=== PATIENT | female | born 1960 | race Caucasian/White ===

== ENCOUNTER 2016-09-19 21:49 | Inpatient (IN) | payer MEDICAID ==
[~2016-09-19] VITALS: Ht 157.5 cm; Wt 130.6 kg
[~2016-09-19 21:49] MED LIST: BENA5TAB2 PO; D-ME473S2 PO; ESCI10TA PO; FERR-55 PO; METO-429 PO; TOLT2CAP6 PO; ULT50 PO; [UNRECOGNIZED DRUG - CODE] OP
[2016-09-19 21:53] VITALS: Ht 157.5 cm; Wt 130.6 kg
[2016-09-19] MEDS ORDERED: morphine 4 MG/ML VIAL IV STA (21:57)
[2016-09-19] MEDS ORDERED: ONDANSETRON 4 MG INJ IV STA (21:57)
[2016-09-19] MEDS ORDERED: SOD CHLORIDE 0.9% 1,000 ML IV STA (21:57)
[2016-09-19] MEDS ORDERED: LACT1CAP33 PO (22:18)
[2016-09-19] MEDS ORDERED: ALBU2.5V3 NEB (22:18)
[2016-09-19] MEDS ORDERED: MINE3.5O31 BOTH EYES (22:19)
[2016-09-19] MEDS ORDERED: BENA10TA48 PO (22:20)
[2016-09-19] MEDS ORDERED: BEN25 PO (22:20)
[2016-09-19] MEDS ORDERED: CHLO118L3 TOP (22:23)
[2016-09-19] MEDS ORDERED: CHLO473M7 MM (22:23)
[2016-09-19] MEDS ORDERED: APIX5TAB PO (22:24)
[2016-09-19] MEDS ORDERED: DULR PR (22:24)
[2016-09-19] MEDS ORDERED: ESOM40CA PO (22:25)
[2016-09-19] MEDS ORDERED: FLEETPED PR (22:26)
[2016-09-19] MEDS ORDERED: LANT3I SC (22:27)
[2016-09-19] MEDS ORDERED: IBUP200C PO (22:29)
[2016-09-19] MEDS ORDERED: FURO20TA3 PO (22:29)
[2016-09-19] MEDS ORDERED: MELA3TAB17 PO (22:30)
[2016-09-19] MEDS ORDERED: ESCI5TAB PO (22:30)
[2016-09-19] MEDS ORDERED: MAGN400O4 PO (22:31)
[2016-09-19] MEDS ORDERED: POLY17PO6 PO (22:32)
[2016-09-19] MEDS ORDERED: MULTI PO (22:33)
[2016-09-19] MEDS ORDERED: ONDA4TAB95 PO (22:34)
[2016-09-19] MEDS ORDERED: GABA100C14 PO (22:34)
[2016-09-19] MEDS ORDERED: OXYB5TAB7 PO (22:35)
[2016-09-19] MEDS ORDERED: TRAM-40 PO (22:36)
[2016-09-19 22:37] LABS: HEMATOCRIT 32.8 % (37.0-47.0); HEMOGLOBIN 10.8 g/dl (12.0-16.0); MEAN CORPUSCULAR HEMOGLOBIN 28.3 pg (29.0-33.0); MEAN CORPUSCULAR HGB CONC 32.9 g/dl (32.0-37.0); MEAN CORPUSCULAR VOLUME 86.1 fl (82.0-101.0); MEAN PLATELET VOLUME 8.6 fl (7.4-10.4); PLATELET COUNT 77 10^3/UL (140-440); RED BLOOD COUNT 3.81 10^6/ul (4.20-5.40); RED CELL DISTRIBUTION WIDTH 22.5 % (11.5-14.5)
[2016-09-19] MEDS ORDERED: CRAN3875 PO (22:37)
[2016-09-19] MEDS ORDERED: ZINC220T PO (22:37)
[2016-09-19] MEDS ORDERED: ASCO500C7 PO (22:37)
[2016-09-19 22:41] LABS: CONDITION 1; LH ANALYZER COMMENTS 1
[2016-09-19 22:45] LABS: ALBUMIN 2.6 g/dl (3.3-4.9)
[2016-09-19 22:46] LABS: POTASSIUM 4.3 mmol/L (3.5-5.1)
[2016-09-19 22:48] LABS: ALBUMIN/GLOBULIN RATIO 0.57; BILIRUBIN,INDIRECT 1.6 mg/dl (0-1.1); BILIRUBIN,TOTAL 2.6 mg/dl (0.2-1.3); CALCIUM 9.8 mg/dl (8.4-10.2); CREATININE 0.94 mg/dl (0.44-1.00); TOTAL PROTEIN 7.1 g/dl (6.1-8.1)
[2016-09-19] MEDS ORDERED: SOD CHLORIDE 0.9% 100 ML ONE (22:58)
[2016-09-19] MEDS ORDERED: IODIXANOL LOCM 100 ML BTL ONE (22:58)
[2016-09-19] MEDS ORDERED: DIPHENHYDRAMINE 50 MG CAP PO PRN (23:30)
[2016-09-19] MEDS ORDERED: HYDROmorphONE 1 MG/ML SYG IV PRN (23:30)
[2016-09-19] MEDS ORDERED: NACL 0.9% 3 ML SYG IV SCH (23:30)
[2016-09-19] MEDS ORDERED: ONDANSETRON 4 MG INJ IV PRN (23:30)
[2016-09-19] MEDS ORDERED: DIPHENHYDRAMINE 25 MG CAP PO PRN (23:30)
[2016-09-19 23:43] LABS: EOSINOPHILS # 0.2 10^3/ul (0.0-0.5); LYMPHOCYTES # 1.1 10^3/ul (0.8-2.9); MONOCYTE # 0.1 10^3/ul (0.3-0.9); NEUTROPHIL # 1.6 10^3/ul (1.6-7.5); PLATELET ESTIMATE PLT APPEAR DECREASED
[2016-09-19] MEDS ORDERED: GLUCAGON 1 MG INJ IM PRN (23:45)
[2016-09-19] MEDS ORDERED: GLUCOSE GEL 15 GRAM TUBE PO PRN ×2 (23:45)
[2016-09-19] MEDS ORDERED: GLUCOSE GEL 15 GRAM TUBE BUCCAL PRN (23:45)
[2016-09-19] MEDS ORDERED: DEXTROSE 50% 50 ML SYRINGE IV PRN ×2 (23:45)
--- NOTE | 2016-09-19 23:49 | RADRPT ---
PROCEDURE: CT Abdomen and pelvis with contrast. CLINICAL INDICATION: Abdominal pain. TECHNIQUE: CT scan of the abdomen and pelvis with contrast was performed on the [employer] s LightSpeed 64 slice VCT scanner. Contiguous axial images using 2.5 mm slice thickness were obtaine d from the lung bases to the ischial tuberosities after the administration of 100 cc Visipaque 320 i ntravenous contrast. Coronal and sagittal reformatted images were also obtained. Images were reviewe d on the PACS workstation. Exam CTD/vol = 23.75 mGy. Total exam DLP = 1370.49 mGy-cm. COMPARISON: 04/16/2014. FINDINGS: Evaluation of the lung bases demonstrates mild bibasilar atelectasis and small pleural effusions. T here are multiple pulmonary nodules bilaterally measuring up to 8 mm in size. Abdomen: The liver is normal in size with a nodular contour suggestive of cirrhosis. There is a po chloé defined heterogeneous area within the posterior segment of the right lobe of the liver measurin g approximately 6.5 x 8.9 cm. There is no dilatation of the biliary tree. The gallbladder is not dis tended. Multiple gallstones are identified. There is a recannulization of the umbilical vein and mu ltiple collateral vessels within the upper abdomen. The spleen is moderately enlarged. The pancreas and bilateral adrenal glands are within normal limits. Bilateral kidneys are normal in size with sy mmetric enhancement. There is scarring within the lower pole of the right kidney. There is no focal mass, hydronephrosis or hydroureter. There is no retroperitoneal adenopathy. The abdominal aorta is of normal caliber. An IVC filter is present. There is a moderate left abdominal ventral hernia containing fat. There is no bowel obstruction or f ree air. A normal appendix is identified. There is no diverticulosis or diverticulitis. There is mil d perihepatic free fluid. Pelvis: The bladder is unremarkable. The uterus and adnexa are within normal limits. There is no si gnificant pelvic adenopathy or free fluid. Evaluation of the osseous structures demonstrates no suspicious lytic or blastic lesion. IMPRESSION: Cirrhotic liver with poorly defined heterogeneous area within the right lobe suspicious for neoplast ic disease, new compared with 04/16/2014. Multiple collateral vessels and moderate splenomegaly compatible with portal venous hypertension. Multiple bony metastases. Mild bibasilar atelectasis and small pleural effusions. Cholelithiasis. IVC filter. Scarring within the lower pole of the right kidney. Moderate left abdominal ventral hernia containing fat. Mild perihepatic free fluid. .John Tse MD, MD Date Time Electronically viewed and signed by .John Tse MD, MD on 09/19/2016 23:49 .T/
--- NOTE | 2016-09-20 00:29 | ERA ---
ER Documentation Chief Complaint Date/Time DATE: 09/20/16 TIME: 00:27 Chief Complaint abd pain,BIB RA[facility],from [facility],denies [place],denies diarrhea/constipation HPI This is a 55-year-old female brought in by rescue 39 for abdominal pain from [facility]. Patient himself denies any complaints but is a poor historian. Dr. Hernandez, who is the patient's primary care physician, called in at and also let me know the patient has had poor oral intake over the past few days. ROS All systems reviewed and are negative except as per history of present illness. Medications Home Meds Reported Medications Zinc Sulfate* (Zinc Sulfate*) 220 Mg Tablet, 220 MG PO DAILY, TAB 09/19/16 Ascorbic Acid* (Vitamin C*) 500 Mg Capsule.sa, 500 MG PO DAILY, CAP 09/19/16 Cran/Vitc/Mannose/Inulin/Brom (Uti-Stat Liquid) 3,875 Mg/30 Ml Liquid, 3875 MG PO DAILY 09/19/16 Tramadol Hcl* (Ultram*) 50 Mg Tablet, 50 MG PO TID Y for PAIN, TAB 09/19/16 Oxybutynin Chloride* (Ditropan*) 5 Mg Tablet, 5 MG PO BID, TAB 09/19/16 Ondansetron Hcl* (Ondansetron Hcl*) 4 Mg Tablet, 4 MG PO Q6H Y for NAUSEA, TAB 09/19/16 Gabapentin* (Gabapentin*) 100 Mg Capsule, 100 MG PO DAILY, #30 CAP 09/19/16 Multivitamins* (Theragran*) 1 Tab Tab, 1 TAB PO DAILY, TAB 09/19/16 Polyethylene Glycol* (Miralax*) 17 Gm Powd.pack, 17 GM PO DAILY Y for PRN, #30 PACKET 09/19/16 Magnesium Hydroxide* (Milk Of Magnesia*) 400 Mg/5 Ml Oral.susp, 30 ML PO Q24H Y for PRN, ML 09/19/16 Melatonin (Melatonin) 3 Mg Tablet.sa, 3 MG PO HS, TAB.SA 09/19/16 Escitalopram Oxalate* (Lexapro*) 5 Mg Tablet, 5 MG PO DAILY, #30 TAB 09/19/16 Furosemide* (Furosemide*) 20 Mg Tablet, 20 MG PO DAILY, #60 TAB 09/19/16 Ibuprofen* (Ibuprofen*) 200 Mg Capsule, 400 MG PO Q6 Y for MILD, CAP FOR TRACH TUBE CHANGE 30 MIN PRIOR 09/19/16 Insulin Glargine* (Lantus*) 100 Unit/Ml Soln, 12 UNIT SC DAILY, #1 VIAL 09/19/16 Sod Phosphate/Sod Biphosphate* (Fleet* Enema Pediatric) 66.6 Ml Soln, 66.6 ML NC Q2DAYS Y for CONSTIPATION, ENEMA 09/19/16 Esomeprazole Mag Trihydrate (Nexium) 40 Mg Capsule.dr, 40 MG PO DAILY, #30 CAP 09/19/16 Apixaban* (Eliquis*) 5 Mg Tablet, 5 MG PO BID, TAB 09/19/16 Bisacodyl* (Bisacodyl*) 10 Mg Supp, 10 MG NC Q24H Y for PRN, SUPP 09/19/16 Chlorhexidine Gluconate (Paroex) 473 Ml Mouthwash, 473 ML MM Q12, BOTTLE 09/19/16 Benazepril Hcl* (Benazepril Hcl*) 10 Mg Tablet, 10 MG PO DAILY, #30 TAB 09/19/16 Diphenhydramine Hcl* (Benadryl*) 25 Mg Cap, 50 MG PO DAILY Y for ITCHING, CAP 09/19/16 Artificial Tears* (Akwa Oint*) 3.5 Gm Oint, 1 APPLIC BOTH EYES BID, #1 TUB 09/19/16 Albuterol Sulfate* (Albuterol Sulfate* Neb) 0.083%-3 Ml Neb, 2.5 MG NEB Q3H Y for WHEEZING AND SOB, #30 VIAL 09/19/16 Lactobacillus Acidophilus (Acidophilus Lactobacillus) 1 Each Capsule, 1 EACH PO BID, CAP 09/19/16 Discontinued Reported Medications Chlorhexidine Gluconate* (Chlorhexidine Gluconate*) 118 Ml Liquid, 118 ML TOP, ML 09/19/16 Dextromethorphan Hb-Promethazine Hcl* (Promethazine DM* Syrup) 473 Ml Syrup, 473 ML PO TID Y take 2 teaspoonfuls by mouth three times a day/prn 09/22/11 Tramadol HCl (Tramadol HCl) 50 Mg Tablet, 50 MG PO Q6 Y 09/22/11 Ferrous Sulfate* (Ferrous Sulfate*) 325 Mg Tablet, 325 MG PO TID 1/5/12 Benazepril Hcl* (Benazepril Hcl*) 5 Mg Tablet, 5 MG PO DAILY 09/22/11 Escitalopram Oxalate* (Lexapro*) 10 Mg Tablet, 10 MG PO DAILY 09/22/11 Metoprolol Tartrate (LOPRESSOR) 50 Mg Tab, 50 MG PO AM 09/22/11 Tolterodine Tartrate* (Detrol LA*) 2 Mg Cap.sr.24h, 2 MG PO BID 09/22/11 Phenylephrine Hcl (Phenylephrine Hcl) 15 Ml Drops, 15 ML OP Q4 Y 2 drops every 4hrs prn on trach site for stop bleeding 09/22/11 Allergies Allergies: Coded Allergies: Penicillins (Verified Allergy, Severe, 09/19/16) acetaminophen (Verified Allergy, Unknown, 09/19/16) PMhx/Soc History of Surgery: Yes (c/s gall bladder removal) Anesthesia Reaction: No Hx 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 Disorder: Yes (CVA) Hx Respiratory Disorders: Yes (on trach,acute resp failure) Hx Cardiac Disorders: Yes (heart failure) Hx Psychiatric Problems: Yes (depression) Hx Miscellaneous Medical Probl: Yes (HTN,IDDM,DYSPHAGIA) Hx Alcohol Use: No Hx Substance Use: No Hx Tobacco Use: No Smoking Status: Unknown if ever smoked Physical Exam Vitals Vital Signs Date Time Temp Pulse Resp B/P Pulse Ox O2 Delivery O2 Flow Rate FiO2 09/19/16 21:53 98.6 82 18 123/60 100 Physical Exam Const: [] Head: Atraumatic Eyes: Normal Conjunctiva ENT: Normal External Ears, Nose and Mouth. Neck: Full range of motion..~ No meningismus. Resp: Clear to auscultation bilaterally Cardio: Regular rate and rhythm, no murmurs Abd: Soft, non tender, non distended. Normal bowel sounds Skin: No petechiae or rashes Back: No midline or flank tenderness Ext: No cyanosis, or edema Neur: Awake and alert Psych: Normal Mood and Affect Result Diagram: 09/19/16221509/19/162215 Results 24 hrs Laboratory Tests Test 09/19/16 22:16 Alanine Aminotransferase (ALT/SGPT) 40IU/L Albumin 2.6g/dl Albumin/Globulin Ratio 0.57 Alkaline Phosphatase 178IU/L Anion Gap 15 Aspartate Amino Transf (AST/SGOT) 160IU/L Blood Morphology Comment Blood Urea Nitrogen 20mg/dl Calcium Level 9.8mg/dl Carbon Dioxide Level 25mmol/L Chloride Level 107mmol/L Creatinine 0.94mg/dl Direct Bilirubin 1.00mg/dl Eosinophils # 0.210^3/ul Eosinophils % 5.0% Globulin 4.50g/dl Glucose Level 110mg/dl Hematocrit 32.8% Hemoglobin 10.8g/dl Indirect Bilirubin 1.6mg/dl Lipase 141U/L Lymphocytes # 1.110^3/ul Lymphocytes % 38.0% Mean Corpuscular Hemoglobin 28.3pg Mean Corpuscular Hemoglobin Concent 32.9g/dl Mean Corpuscular Volume 86.1fl Mean Platelet Volume 8.6fl Monocytes # 0.110^3/ul Monocytes % 3.0% Neutrophils # 1.610^3/ul Neutrophils % 54.0% Platelet Count 7710^3/UL Platelet Estimate PLT APPEAR DECREASED Potassium Level 4.3mmol/L Red Blood Count 3.8110^6/ul Red Cell Distribution Width 22.5% Sodium Level 143mmol/L Total Bilirubin 2.6mg/dl Total Protein 7.1g/dl White Blood Count 3.010^3/ul Current Medications Medications (Trade) Dose Ordered Sig/Carolann Route PRN Reason Start Time Stop Time Status Last Admin Dose Admin Sodium Chloride (NS) 1,000 ml @ 1,000 mls/hr Q1H STAT IV 09/19/16 21:57 09/19/16 22:56 DC 09/19/16 21:57 Morphine Sulfate (morphine) 4 mg ONCE STAT IV 09/19/16 21:57 09/19/16 21:59 DC 09/19/16 23:41 Ondansetron HCl (Zofran Inj) 4 mg ONCE STAT IV 09/19/16 21:57 09/19/16 21:59 DC 09/19/16 23:41 IV Flush 10 ml 10 ml STK-MED ONCE .ROUTE 09/19/16 22:58 09/19/16 22:59 DC 09/19/16 23:24 Sodium Chloride (NS) 100 ml @ ud STK-MED ONCE .ROUTE 09/19/16 22:58 09/19/16 22:59 DC 09/19/16 23:25 Iodixanol (Visipaque Locm) 100 ml STK-MED ONCE .ROUTE 09/19/16 22:58 09/19/16 22:59 DC 09/19/16 23:25 Albuterol (Proventil 0.083% (Neb)) 2.5 mg Q3H RESP THERAPY PRN NEB WHEEZING AND SOB 09/19/16 23:30 Apixaban (Eliquis) 5 mg BID PO 09/20/16 09:00 Eye Lubricant (Akwa Oint) 1 applic BID BOTH EYES 09/20/16 09:00 Ascorbic Acid (Vitamin C) 500 mg DAILY PO 09/20/16 09:00 Benazepril HCl (Lotensin) 10 mg DAILY PO 09/20/16 09:00 Bisacodyl (Dulcolax Supp) 10 mg Q24H PRN NC PRN 09/19/16 23:30 Chlorhexidine Gluconate (Peridex) 15 ml Q12 MM 09/20/16 09:00 Diphenhydramine HCl (Benadryl) 50 mg DAILY PRN PO ITCHING 09/19/16 23:30 UNV Escitalopram Oxalate (Lexapro) 5 mg DAILY PO 09/20/16 09:00 Furosemide (Lasix) 20 mg DAILY@06 PO 09/20/16 06:00 Gabapentin (Neurontin) 100 mg DAILY PO 09/20/16 09:00 Magnesium Hydroxide (Milk Of Mag) 30 ml Q24H PRN PO PRN 09/19/16 23:30 Multivitamins Therapeutic (Theragran) 1 tab DAILY PO 09/20/16 09:00 Oxybutynin Chloride (Ditropan) 5 mg BID PO 09/20/16 09:00 Polyethylene Glycol (Miralax) 17 gm DAILY PRN PO PRN 09/19/16 23:30 Tramadol HCl (Ultram) 50 mg TID PRN PO PAIN 09/19/16 23:30 Zinc Sulfate (Zinc Sulfate) 220 mg DAILY PO 09/20/16 09:00 Diphenhydramine HCl 50 mg 50 mg DAILY PRN PO ITCHING 09/19/16 23:30 Dextrose/Sodium Chloride (D5-1/2ns) 1,000 ml @ 40 mls/hr Q24H IV 09/19/16 23:16 IV Flush (NS 3 ml) 3 ml PER PROTOCOL IV 09/19/16 23:30 Ondansetron HCl (Zofran Inj) 4 mg Q4H PRN IV NAUSEA AND/OR VOMITING 09/19/16 23:30 Hydromorphone HCl (Dilaudid) 0.5 mg Q4H PRN IV SEVERE PAIN LEVEL 7-10 09/19/16 23:30 Famotidine (Pepcid Iv) 20 mg Q12 IV 09/20/16 09:00 Insulin Aspart (Novolog Insulin Pen) NOVOLOG *MODERATE* ALGORITHM WITH MEALS BEDTIME SC 09/20/16 08:00 Miscellaneous Information (* Miscellaneous Pharmacy Order) HYPOGLYCEMIA PROTOCOL w... ONCE ONCE XX 09/19/16 23:30 09/19/16 23:34 DC Miscellaneous Information (* Miscellaneous Pharmacy Order) Discontinue Glyburide, Glipizide,... ONCE ONCE XX 09/19/16 23:30 09/19/16 23:35 DC Miscellaneous Information (* Miscellaneous Pharmacy Order) Discontinue all previ... ONCE ONCE XX 09/19/16 23:30 09/19/16 23:35 DC Diagnostic Test (Pha) (Accucheck) 1 ea 02 XX 09/20/16 02:00 Miscellaneous Information 1 ea NOTE XX 09/19/16 23:45 Glucose (Glutose) 15 gm Q15M PRN PO DECREASED GLUCOSE 09/19/16 23:45 Glucose (Glutose) 22.5 gm Q15M PRN PO DECREASED GLUCOSE 09/19/16 23:45 Dextrose (D50w Syringe) 25 ml Q15M PRN IV DECREASED GLUCOSE 09/19/16 23:45 Dextrose (D50w Syringe) 50 ml Q15M PRN IV DECREASED GLUCOSE 09/19/16 23:45 Glucagon (Glucagen) 1 mg Q15M PRN IM DECREASED GLUCOSE 09/19/16 23:45 Glucose (Glutose) 15 gm Q15M PRN BUCCAL DECREASED GLUCOSE 09/19/16 23:45 Procedures/MDM EKG: Rate/Rhythm: Normal Sinus Rhythm QRS, ST, T-waves: No changes consistent w/ acute ischemia Impression: No evidence of ischemia or arrhythmia Chest X-ray 1V Interpreted by me: Soft Tissue: No acute abnormalities Bones: No acute abnormalities Mediastinum/Cardiac Silhouette/Lungs: No acute abnormalities Medical decision making: Is a 55-year-old female comes in essentially for failure to thrive abdominal pain of uncertain nonspecific etiology. Patient will be admitted to Dr. Hernandez to medical surgical floor. Patient is stable but guarded at this time Departure Diagnosis: Primary Impression: Abdominal pain Qualified Code: R10.9 - Abdominal pain, unspecified location Condition: Serious MANISHA BAIRES Sep 20, 2016 00:28
[2016-09-20 00:31] VITALS: TEMP 98.6
[2016-09-20] MEDS: DEXTROSE 5%-0.45% NACL 1,000 ML IV SCH (01:15)
[2016-09-20] MEDS: ACCUCHECK AT 2AM (Patients on SS coverage) XX SCH (02:00)
[2016-09-20 06:04] LABS: HEMATOCRIT 30.8 % (37.0-47.0); HEMOGLOBIN 10.2 g/dl (12.0-16.0); MEAN CORPUSCULAR HGB CONC 33.1 g/dl (32.0-37.0); MEAN CORPUSCULAR VOLUME 87.5 fl (82.0-101.0); MEAN PLATELET VOLUME 8.9 fl (7.4-10.4); PLATELET COUNT 73 10^3/UL (140-440); RED BLOOD COUNT 3.52 10^6/ul (4.20-5.40); RED CELL DISTRIBUTION WIDTH 22.2 % (11.5-14.5); UNCORRECTED WBC 2.8 10^3/ul (4.8-10.8); WHITE BLOOD COUNT 2.8 10^3/ul (4.8-10.8)
[2016-09-20] MEDS: FUROSEMIDE 20 MG TAB PO SCH (06:10)
[2016-09-20 06:16] LABS: CONDITION 1; INR 2.58; LH ANALYZER COMMENTS 1; PT RATIO 2.2
[2016-09-20 06:49] LABS: ALBUMIN 2.3 g/dl (3.3-4.9)
[2016-09-20 06:50] LABS: POTASSIUM 4.4 mmol/L (3.5-5.1)
[2016-09-20 06:52] LABS: ALBUMIN/GLOBULIN RATIO 0.53; BILIRUBIN,DIRECT 0.8 mg/dl (0.00-0.20); BILIRUBIN,INDIRECT 1.5 mg/dl (0-1.1); BILIRUBIN,TOTAL 2.3 mg/dl (0.2-1.3); CREATININE 0.93 mg/dl (0.44-1.00); TOTAL PROTEIN 6.6 g/dl (6.1-8.1)
[2016-09-20 06:53] LABS: CALCIUM 9.5 mg/dl (8.4-10.2)
[2016-09-20 09:14] LABS: EOSINOPHILS # 0.2 10^3/ul (0.0-0.5); LYMPHOCYTES # 0.6 10^3/ul (0.8-2.9); MONOCYTE # 0.3 10^3/ul (0.3-0.9); NEUTROPHIL # 1.7 10^3/ul (1.6-7.5)
[2016-09-20 09:15] LABS: ANISOCYTOSIS 2+; HYPOCHROMASIA 1+; PLATELET ESTIMATE PLT APPEAR DECREASED
[2016-09-20] MEDS: INSULIN ASPART [NOVOLOG] 3 ML PEN SC SCH ×4 (09:24→20:34)
[2016-09-20] MEDS: ZINC SULFATE 220 MG CAP PO SCH (09:31)
[2016-09-20] MEDS: GABAPENTIN 100 MG CAP PO SCH (09:31)
[2016-09-20] MEDS: CHLORHEXIDINE GLUCONATE 15 ML UD CUP MM SCH ×2 (09:31→20:33)
[2016-09-20] MEDS: ESCITALOPRAM 10 MG TAB PO SCH (09:31)
[2016-09-20] MEDS: ASCORBIC ACID 500 MG TAB PO SCH (09:31)
[2016-09-20] MEDS: APIXABAN 5 MG TABLET PO SCH ×2 (09:32→20:38)
[2016-09-20] MEDS: MULTIVITAMINS THERAPEUTIC TAB PO SCH (09:32)
[2016-09-20] MEDS: FAMOTIDINE 20 MG INJ IV SCH ×2 (09:32→20:33)
[2016-09-20] MEDS: BENAZEPRIL 10 MG TAB PO SCH (09:32)
[2016-09-20] MEDS: OXYBUTYNIN 5 MG TAB PO SCH ×2 (12:17→20:34)
[2016-09-20] MEDS: OCULAR LUBRICANT 3.5 GM OPH OINT BOTH EYES SCH ×2 (12:17→20:33)
--- NOTE | 2016-09-20 15:59 | QN ---
Documentation Comment [id number] ANGELICA ALTAMIRANO MD Sep 20, 2016 15:59
--- NOTE | 2016-09-20 16:53 | HP ---
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 The patient is noted to have WBC 3, hematocrit 32.8, platelet count of 77. Sodium 142, potassium 4.4. The patient has abnormal LFT, alkaline phosphatase of 155. CT scan of the abdomen and pelvis done shows cirrhotic liver with poorly defined heterogeneous area within the right lobe, suspicious for disease, new, multiple collateral vessels and moderate splenomega ly. The patient has portal venous hypertension, multiple bony mets, mild bibasilar atelectasis and small pleural effusion, cholelithiasis, IVC filter, scarring within the lower pole of the right kidn ey, moderate left abdominal ventral hernia containing fat, mild perihepatic free fluid and patient i s being admitted for further management. PAST MEDICAL HISTORY: Positive for pancytopenia, COPD, respiratory failure, diabetes mellitus, dysp hagia, and depression. The patient has history of DVT, COPD, UTI, history of dyslipidemia, history of CKD. ALLERGIES: PENICILLIN. TYLENOL. SOCIAL HISTORY: Negative at this point. FAMILY HISTORY: At this point, negative. MEDICATION HISTORY: The patient is on: 1. Albuterol. 2. Apixaban. 3. Ascorbic acid. 4. Benazepril. 5. Bisacodyl. 6. Chlorhexidine. 7. Benadryl. 8. Lexapro. 9. Nexium 10. Lasix. 11. Gabapentin. 12. Ibuprofen. 13. Insulin. 14. Lactobacillus. 15. Magnesium oxide. 16. Melatonin. 17. Multiple vitamin. 18. Zofran. 19. Oxybutynin. 20. MiraLax. 21. Ultram. 22. Zinc sulfate. REVIEW OF SYSTEMS: HEENT: Unremarkable. RESPIRATORY: Chronic tracheostomy. No shortness of breath. CARDIOVASCULAR: No chest pain. ABDOMEN: No nausea, vomiting, abdominal pain. EXTREMITIES: Edema of lower extremity with pain. PHYSICAL EXAMINATION: GENERAL: Overweight, obese female, awake, alert. VITAL SIGNS: Shows blood pressure 132/55, pulse 76. HEAD: Atraumatic, normocephalic. Pupils equal, reactive to light. NECK: Supple. Tracheostomy in place. LUNGS: Clear. CARDIOVASCULAR: S1, S2 normal. ABDOMEN: Soft, obese, bowel sounds present, no palpable mass. EXTREMITIES: No cyanosis, clubbing. Edema positive. CENTRAL NERVOUS SYSTEM: The patient is awake, alert, no focal deficit. IMPRESSION: 1. The patient has abdominal pain. 2. Rule out malignancy. 3. Abnormal LFT. 4. Hypertension, diabetes mellitus, obesity, tracheostomy, COPD, DVT, history of inferior vena cava filter placement. PLAN: Obtain GI input and hematology consultation. Vascular surgery consultation as well as orders were d one. The patient is currently on 1. Apixaban. 2. Ascorbic acid. 3. Benazepril. 4. Chlorhexidine. 5. Celexa. 6. Gabapentin. 7. Multiple vitamin. 8. Zinc sulfate. 9. Insulin. 10. Lasix. 11. Tramadol. 12. Benadryl. 13. Zofran. Orders were done. Dictated By: ANGELICA TATE/LORI Conf#: [id number] DID#: [id number]
[2016-09-20 20:03] LABS: CARCINOEMBRYONIC ANTIGEN 4.5 ng/ml (0.0-5.0)
[2016-09-20 20:06] LABS: CANCER ANTIGEN 19-9 34.3 U/ml (0.0-37.0)
[2016-09-20 20:59] VITALS: BP 122/74; RESP 23
[2016-09-21] MEDS: DEXTROSE 5%-0.45% NACL 1,000 ML IV SCH (01:57)
[2016-09-21] MEDS: ACCUCHECK AT 2AM (Patients on SS coverage) XX SCH (01:59)
[2016-09-21] MEDS: FUROSEMIDE 20 MG TAB PO SCH (05:42)
[2016-09-21 05:43] VITALS: BP 117/55; PULSE 83
[2016-09-21 07:07] LABS: HEMATOCRIT 33.7 % (37.0-47.0); HEMOGLOBIN 10.9 g/dl (12.0-16.0); MEAN CORPUSCULAR HEMOGLOBIN 28.5 pg (29.0-33.0); MEAN CORPUSCULAR HGB CONC 32.2 g/dl (32.0-37.0); MEAN CORPUSCULAR VOLUME 88.6 fl (82.0-101.0); MEAN PLATELET VOLUME 9.3 fl (7.4-10.4); PLATELET COUNT 78 10^3/UL (140-440); RED BLOOD COUNT 3.81 10^6/ul (4.20-5.40); RED CELL DISTRIBUTION WIDTH 22.4 % (11.5-14.5); UNCORRECTED WBC 3.1 10^3/ul (4.8-10.8); WHITE BLOOD COUNT 3.1 10^3/ul (4.8-10.8)
[2016-09-21 07:17] LABS: CONDITION 1; LH ANALYZER COMMENTS 1
[2016-09-21 07:22] LABS: ALBUMIN 2.7 g/dl (3.3-4.9); POTASSIUM 4.5 mmol/L (3.5-5.1)
[2016-09-21 07:24] LABS: BILIRUBIN,DIRECT 0.8 mg/dl (0.00-0.20); BILIRUBIN,INDIRECT 1.6 mg/dl (0-1.1); BILIRUBIN,TOTAL 2.4 mg/dl (0.2-1.3); CREATININE 0.94 mg/dl (0.44-1.00)
[2016-09-21 07:25] LABS: ALBUMIN/GLOBULIN RATIO 0.58; TOTAL PROTEIN 7.3 g/dl (6.1-8.1)
[2016-09-21 07:26] LABS: CALCIUM 9.5 mg/dl (8.4-10.2)
[2016-09-21] MEDS: INSULIN ASPART [NOVOLOG] 3 ML PEN SC SCH ×4 (08:00→19:58)
[2016-09-21 08:09] VITALS: BP 127/60; RESP 22
[2016-09-21] MEDS ORDERED: INFLUENZA VIRUS VACCINE 0.5 ML (DISPENSING) IM* ONE (09:00)
[2016-09-21] MEDS: ESCITALOPRAM 10 MG TAB PO SCH (09:43)
[2016-09-21] MEDS: GABAPENTIN 100 MG CAP PO SCH (09:44)
[2016-09-21] MEDS: ZINC SULFATE 220 MG CAP PO SCH (09:44)
[2016-09-21] MEDS: MULTIVITAMINS THERAPEUTIC TAB PO SCH (09:44)
[2016-09-21] MEDS: OXYBUTYNIN 5 MG TAB PO SCH ×2 (09:44→19:58)
[2016-09-21] MEDS: ASCORBIC ACID 500 MG TAB PO SCH (09:44)
[2016-09-21] MEDS: FAMOTIDINE 20 MG INJ IV SCH (09:45)
[2016-09-21] MEDS: OCULAR LUBRICANT 3.5 GM OPH OINT BOTH EYES SCH ×2 (09:45→19:57)
[2016-09-21] MEDS: APIXABAN 5 MG TABLET PO SCH ×2 (09:45→19:58)
[2016-09-21] MEDS: BENAZEPRIL 10 MG TAB PO SCH (09:45)
[2016-09-21] MEDS: CHLORHEXIDINE GLUCONATE 15 ML UD CUP MM SCH ×2 (09:45→19:57)
[2016-09-21 10:49] LABS: ANISOCYTOSIS 1+; EOSINOPHILS # 0.1 10^3/ul (0.0-0.5); HYPOCHROMASIA 1+; LYMPHOCYTES # 0.7 10^3/ul (0.8-2.9); MONOCYTE # 0.2 10^3/ul (0.3-0.9)
[2016-09-21 10:50] LABS: PLATELET ESTIMATE PLT APPEAR DECREASED
[2016-09-21] MEDS: MUPIROCIN 2% 22 GM OINT TOP SCH ×2 (13:07→19:59)
--- NOTE | 2016-09-21 13:37 | CONS ---
Date/Time of Note Date/Time of Note DATE: 09/21/16 TIME: 13:27 Assessment/Plan Assessment/Plan Chief Complaint/Hosp Course 55 yo female with history or recurrent DVT who now presents with liver lesions and pancytopenia. Problems: Additional Assessment/Plan # Liver lesion -given cirrhosis we are concerned for HCC -follow AFP. if elevated will check triple phase CT -if low AFP will need to pursue liver biopsy #Pancytopenia -likely secondary to liver cirrhosis -will monitor counts #h/o multiple DVT s/p IVC filter -LE ultrasounds ordered. will follow up -Lovenox for dvt ppx ok # question on bone mets -spoke with Abner Boateng, radiologist who stated there were infact NO BONE METS on CT. this was a misread and will be addended on the scan Approximately 40 min were spent at patient's bedside and in coordination of her care Consultation Date/Type/Reason Admit Date/Time Sep 21, 2016 at 10:00 Date of Consultation: Sep 21, 2016 Type of Consultation: oncology/ hematology Reason for Consultation DVT/ metastatic cancer Referring Provider: ANGELICA ALTAMIRANO Hx of Present Illness 55-year-old female with multiple medical problems including COPD, chronic trach , history of multiple DVT's who was brought in by ambulance form skilled nursing for abdominal pain. Per patient's PMD pt has had poor oral intake for the past several days. CT of the abdomen and pelvis reveal a cirrhotic liver with a poorly defined heterogeneous area within the right lobe suspicious for neoplastic disease, new compared with 04/16/2014. The patient was also noted to be pancytopenic with a WBC 3, hematocrit 32.8, platelet count of 77. She was also noted to have an elevated CA 125. We have thus been consulted to rule out metastatic disease given the elevated tumor marker and indeterminate liver lesion. Constitutional: poor po Eyes: no complaints ENT: no complaints Respiratory: shortness of breath Cardiovascular: no complaints Gastrointestinal: no complaints Genitourinary: no complaints Musculoskeletal: bone/joint pain Skin: no complaints Neurologic: no complaints Past Medical History Positive for pancytopenia cirrhosis COPD, respiratory failure with trach diabetes mellitus dysphagia depression history of DVT COPD UTI history of dyslipidemia history of CKD. Family History Significant Family History: no pertinent family hx Social History Alcohol Use: none Smoking Status: Unknown if ever smoked Drug Use: none Exam/Review of Systems Vital Signs Vitals Vital Signs Date Time Temp Pulse Resp B/P Pulse Ox O2 Delivery O2 Flow Rate FiO2 09/21/16 09:00 6.0 09/21/16 08:09 98.2 84 22 127/60 94 09/21/16 05:14 Aerosol 28 T Tube Intake and Output 09/20/16 09/20/16 09/21/16 15:00 23:00 07:00 Intake Total 600 ml 720 ml Balance 600 ml 720 ml Exam Constitutional: alert, obese, oriented Eyes: nl conjunctiva Neck: other (with tracheostomy) Respiratory: clear to auscultation, normal air movement Cardiovascular: nl pulses, regular rate and rhythm Gastrointestinal: nl liver, spleen, non-tender, soft Musculoskeletal: nl extremities to inspection, nl gait and stance Extremities: normal pulses Results Result Diagram: 09/21/1651609/21/16516 Results 24 hrs Laboratory Tests Test 09/20/16 16:43 09/20/16 17:15 09/20/16 20:32 09/21/16 05:17 Bedside Glucose 110 133 CA 125 Antigen 166.0 H CA 19-9 Antigen 34.3 Carcinoembryonic Antigen 4.5 Prealbumin 5.4 L Alanine Aminotransferase (ALT/SGPT) 50 Albumin 2.7 L Albumin/Globulin Ratio 0.58 Alkaline Phosphatase 171 H Anion Gap 17 H Anisocytosis 1+ Aspartate Amino Transf (AST/SGOT) 152 H Band Neutrophils % 1.0 Blood Morphology Comment Blood Urea Nitrogen 19 Calcium Level 9.5 Carbon Dioxide Level 25 Chloride Level 107 Creatinine 0.94 Differential Comment MANUAL DIFF Direct Bilirubin 0.80 H Eosinophils # 0.1 Eosinophils % 4.0 Globulin 4.60 H Glucose Level 116 Hematocrit 33.7 L Hemoglobin 10.9 L Hypochromasia 1+ Indirect Bilirubin 1.6 H Lymphocytes # 0.7 L Lymphocytes % 22.0 Mean Corpuscular Hemoglobin 28.5 L Mean Corpuscular Hemoglobin Concent 32.2 Mean Corpuscular Volume 88.6 Mean Platelet Volume 9.3 Monocytes # 0.2 L Monocytes % 8.0 Neutrophils # 2.0 Neutrophils % 65.0 Platelet Count 78 L Platelet Estimate PLT APPEAR DECREASED Potassium Level 4.5 Red Blood Count 3.81 L Red Cell Distribution Width 22.4 H Sodium Level 144 Total Bilirubin 2.4 H Total Protein 7.3 White Blood Count 3.1 L Test 09/21/16 07:45 09/21/16 11:30 Bedside Glucose 129 120 Medications Medications Current Medications Apixaban (Eliquis) 5 mg BID PO Last administered on 09/21/16 09:45; Admin Dose 5 MG; Start 09/20/16 at 09:00 Eye Lubricant (Akwa Oint) 1 applic BID BOTH EYES Last administered on 09/21/16 09:45; Admin Dose 1 APPLIC; Start 09/20/16 at 09:00 Ascorbic Acid (Vitamin C) 500 mg DAILY PO Last administered on 09/21/16 09:44; Admin Dose 500 MG; Start 09/20/16 at 09:00 Benazepril HCl (Lotensin) 10 mg DAILY PO Last administered on 09/21/16 09:45; Admin Dose 10 MG; Start 09/20/16 at 09:00 Bisacodyl (Dulcolax Supp) 10 mg Q24H PRN IA PRN; Start 09/19/16 at 23:30 Chlorhexidine Gluconate (Peridex) 15 ml Q12 MM Last administered on 09/21/16 09 :45; Admin Dose 15 ML; Start 09/20/16 at 09:00 Escitalopram Oxalate (Lexapro) 5 mg DAILY PO Last administered on 09/21/16 09: 43; Admin Dose 5 MG; Start 09/20/16 at 09:00 Furosemide (Lasix) 20 mg DAILY@06 PO Last administered on 09/21/16 05:42; Admin Dose 20 MG; Start 09/20/16 at 06:00 Gabapentin (Neurontin) 100 mg DAILY PO Last administered on 09/21/16 09:44; Admin Dose 100 MG; Start 09/20/16 at 09:00 Magnesium Hydroxide (Milk Of Mag) 30 ml Q24H PRN PO PRN; Start 09/19/16 at 23:30 Multivitamins Therapeutic (Theragran) 1 tab DAILY PO Last administered on 09:44; Admin Dose 1 TAB; Start 09/20/16 at 09:00 Oxybutynin Chloride (Ditropan) 5 mg BID PO Last administered on 09/21/16 09:44 ; Admin Dose 5 MG; Start 09/20/16 at 09:00 Polyethylene Glycol (Miralax) 17 gm DAILY PRN PO PRN; Start 09/19/16 at 23:30 Tramadol HCl (Ultram) 50 mg TID PRN PO PAIN; Start 09/19/16 at 23:30 Zinc Sulfate (Zinc Sulfate) 220 mg DAILY PO Last administered on 09/21/16 09:44 ; Admin Dose 220 MG; Start 09/20/16 at 09:00 Diphenhydramine HCl 50 mg 50 mg DAILY PRN PO ITCHING; Start 09/19/16 at 23:30 Dextrose/Sodium Chloride (D5-1/2ns) 1,000 ml @ 40 mls/hr Q24H IV Last administered on 09/21/16 01:57; Admin Dose 40 MLS/HR; Start 09/19/16 at 23:16 Ondansetron HCl (Zofran Inj) 4 mg Q4H PRN IV NAUSEA AND/OR VOMITING Last administered on 09/20/16 06:20; Admin Dose 4 MG; Start 09/19/16 at 23:30 Hydromorphone HCl (Dilaudid) 0.5 mg Q4H PRN IV SEVERE PAIN LEVEL 7-10; Start at 23:30 Famotidine (Pepcid Iv) 20 mg Q12 IV Last administered on 09/21/16 09:45; Admin Dose 20 MG; Start 09/20/16 at 09:00 Diagnostic Test (Pha) (Accucheck) 1 ea 02 XX ; Start 09/20/16 at 02:00 Miscellaneous Information 1 ea NOTE XX ; Start 09/19/16 at 23:45 Glucose (Glutose) 15 gm Q15M PRN PO DECREASED GLUCOSE; Start 09/19/16 at 23:45 Glucose (Glutose) 22.5 gm Q15M PRN PO DECREASED GLUCOSE; Start 09/19/16 at 23:45 Dextrose (D50w Syringe) 25 ml Q15M PRN IV DECREASED GLUCOSE; Start 09/19/16 at 23:45 Dextrose (D50w Syringe) 50 ml Q15M PRN IV DECREASED GLUCOSE; Start 09/19/16 at 23:45 Glucagon (Glucagen) 1 mg Q15M PRN IM DECREASED GLUCOSE; Start 09/19/16 at 23:45 Glucose (Glutose) 15 gm Q15M PRN BUCCAL DECREASED GLUCOSE; Start 09/19/16 at 23: 45 Mupirocin (Bactroban) 1 applic BID TOP Last administered on 09/21/16t 13:07; Admin Dose 1 APPLIC; Start 09/21/16 at 12:00 ELTON LINCOLN M.D. Sep 21, 2016 13:37
--- NOTE | 2016-09-21 15:02 | RADRPT ---
PROCEDURE: Ultrasound of the bilateral lower extremity venous system. CLINICAL INDICATION: Bilateral leg pain and swelling, deep venous thrombosis, shortness of breath TECHNIQUE: Novoa scale with and without compression, color doppler, spectral doppler of the venous system of the bilateral lower extremities was performed. Venous augmentation maneuvers were utilized . COMPARISON: No prior studies are available for comparison. FINDINGS: RIGHT: Common femoral vein: Thrombus is present Superficial femoral vein: Thrombus is present within the proximal and midportion of the vessel. Popliteal vein: Patent. Calf veins: Patent. No soft tissue abnormalities are identified. LEFT: Common femoral vein: Patent. Superficial femoral vein: Patent. Popliteal vein: Patent. Calf veins: Patent. No soft tissue abnormalities are identified. IMPRESSION: Right lower extremity deep venous thrombosis. Results were discussed with Nurse Indica by telephone at 1455 hours on 09/21/[address] Héctor hendrickson RPTAT: AADD .Héctor Panchal MD, MD Date Time Electronically viewed and signed by .Héctor Panchal MD, on 09/21/2016 15:02 .B/
--- NOTE | 2016-09-21 18:31 | PN ---
Date/Time of Note Date/Time of Note DATE: 09/21/16 TIME: 18:30 Assessment/Plan VTE Prophylaxis VTE Prophylaxis Intervention: other Lines/Catheters IV [facility]ter Type (from [facility]): Peripheral IV Urinary Cath still in place: No Assessment/Plan Chief Complaint/Hosp Course IMPRESSION: 1. The patient has abdominal pain. 2. Rule out malignancy. 3. Abnormal LFT. 4. Hypertension, diabetes mellitus, obesity, tracheostomy, COPD, DVT, history of inferior vena cava filter placement. plan gi pending dr grimes called Problems: Subjective 24 Hr Interval Summary Respiratory: no complaints Gastrointestinal: no complaints Exam/Review of Systems Vital Signs Vitals Vital Signs Date Time Temp Pulse Resp B/P Pulse Ox O2 Delivery O2 Flow Rate FiO2 09/21/16 09:00 6.0 09/21/16 08:09 98.2 84 22 127/60 94 09/21/16 05:14 Aerosol 28 T Tube Intake and Output 09/20/16 09/20/16 09/21/16 15:00 23:00 07:00 Intake Total 600 ml 720 ml Balance 600 ml 720 ml Exam Respiratory: clear to auscultation Cardiovascular: regular rate and rhythm Gastrointestinal: soft Extremities: edema (++) Results Result Diagram: 09/21/1617 09/21/16 0517 Results 24 hrs Laboratory Tests Test 09/20/16 20:32 09/21/16 05:17 09/21/16 07:45 09/21/16 11:30 Bedside Glucose 133 129 120 Alanine Aminotransferase (ALT/SGPT) 50 Albumin 2.7 L Albumin/Globulin Ratio 0.58 Alkaline Phosphatase 171 H Anion Gap 17 H Anisocytosis 1+ Aspartate Amino Transf (AST/SGOT) 152 H Band Neutrophils % 1.0 Blood Morphology Comment Blood Urea Nitrogen 19 Calcium Level 9.5 Carbon Dioxide Level 25 Chloride Level 107 Creatinine 0.94 Differential Comment MANUAL DIFF Direct Bilirubin 0.80 H Eosinophils # 0.1 Eosinophils % 4.0 Globulin 4.60 H Glucose Level 116 Hematocrit 33.7 L Hemoglobin 10.9 L Hypochromasia 1+ Indirect Bilirubin 1.6 H Lymphocytes # 0.7 L Lymphocytes % 22.0 Mean Corpuscular Hemoglobin 28.5 L Mean Corpuscular Hemoglobin Concent 32.2 Mean Corpuscular Volume 88.6 Mean Platelet Volume 9.3 Monocytes # 0.2 L Monocytes % 8.0 Neutrophils # 2.0 Neutrophils % 65.0 Platelet Count 78 L Platelet Estimate PLT APPEAR DECREASED Potassium Level 4.5 Red Blood Count 3.81 L Red Cell Distribution Width 22.4 H Sodium Level 144 Total Bilirubin 2.4 H Total Protein 7.3 White Blood Count 3.1 L Test 09/21/16 16:34 Bedside Glucose 140 Medications Medications Current Medications Apixaban (Eliquis) 5 mg BID PO Last administered on 09/21/16 09:45; Admin Dose 5 MG; Start 09/20/16 at 09:00 Eye Lubricant (Akwa Oint) 1 applic BID BOTH EYES Last administered on 09/21/16 09:45; Admin Dose 1 APPLIC; Start 09/20/16 at 09:00 Ascorbic Acid (Vitamin C) 500 mg DAILY PO Last administered on 09/21/16 09:44; Admin Dose 500 MG; Start 09/20/16 at 09:00 Benazepril HCl (Lotensin) 10 mg DAILY PO Last administered on 09/21/16 09:45; Admin Dose 10 MG; Start 09/20/16 at 09:00 Bisacodyl (Dulcolax Supp) 10 mg Q24H PRN MS PRN; Start 09/19/16 at 23:30 Chlorhexidine Gluconate (Peridex) 15 ml Q12 MM Last administered on 09/21/16 09 :45; Admin Dose 15 ML; Start 09/20/16 at 09:00 Escitalopram Oxalate (Lexapro) 5 mg DAILY PO Last administered on 09/21/16 09: 43; Admin Dose 5 MG; Start 09/20/16 at 09:00 Furosemide (Lasix) 20 mg DAILY@06 PO Last administered on 09/21/16 05:42; Admin Dose 20 MG; Start 09/20/16 at 06:00 Gabapentin (Neurontin) 100 mg DAILY PO Last administered on 09/21/16 09:44; Admin Dose 100 MG; Start 09/20/16 at 09:00 Magnesium Hydroxide (Milk Of Mag) 30 ml Q24H PRN PO PRN; Start 09/19/16 at 23:30 Multivitamins Therapeutic (Theragran) 1 tab DAILY PO Last administered on 09:44; Admin Dose 1 TAB; Start 09/20/16 at 09:00 Oxybutynin Chloride (Ditropan) 5 mg BID PO Last administered on 09/21/16 09:44 ; Admin Dose 5 MG; Start 09/20/16 at 09:00 Polyethylene Glycol (Miralax) 17 gm DAILY PRN PO PRN; Start 09/19/16 at 23:30 Tramadol HCl (Ultram) 50 mg TID PRN PO PAIN; Start 09/19/16 at 23:30 Zinc Sulfate (Zinc Sulfate) 220 mg DAILY PO Last administered on 09/21/16 09:44 ; Admin Dose 220 MG; Start 09/20/16 at 09:00 Diphenhydramine HCl 50 mg 50 mg DAILY PRN PO ITCHING; Start 09/19/16 at 23:30 Dextrose/Sodium Chloride (D5-1/2ns) 1,000 ml @ 40 mls/hr Q24H IV Last administered on 09/21/16 01:57; Admin Dose 40 MLS/HR; Start 09/19/16 at 23:16 Ondansetron HCl (Zofran Inj) 4 mg Q4H PRN IV NAUSEA AND/OR VOMITING Last administered on 09/20/16 06:20; Admin Dose 4 MG; Start 09/19/16 at 23:30 Hydromorphone HCl (Dilaudid) 0.5 mg Q4H PRN IV SEVERE PAIN LEVEL 7-10; Start at 23:30 Diagnostic Test (Pha) (Accucheck) 1 ea 02 XX ; Start 09/20/16 at 02:00 Miscellaneous Information 1 ea NOTE XX ; Start 09/19/16 at 23:45 Glucose (Glutose) 15 gm Q15M PRN PO DECREASED GLUCOSE; Start 09/19/16 at 23:45 Glucose (Glutose) 22.5 gm Q15M PRN PO DECREASED GLUCOSE; Start 09/19/16 at 23:45 Dextrose (D50w Syringe) 25 ml Q15M PRN IV DECREASED GLUCOSE; Start 09/19/16 at 23:45 Dextrose (D50w Syringe) 50 ml Q15M PRN IV DECREASED GLUCOSE; Start 09/19/16 at 23:45 Glucagon (Glucagen) 1 mg Q15M PRN IM DECREASED GLUCOSE; Start 09/19/16 at 23:45 Glucose (Glutose) 15 gm Q15M PRN BUCCAL DECREASED GLUCOSE; Start 09/19/16 at 23: 45 Mupirocin (Bactroban) 1 applic BID TOP Last administered on 09/21/16t 13:07; Admin Dose 1 APPLIC; Start 09/21/16 at 12:00 Famotidine (Pepcid) 20 mg BID PO ; Start 09/21/16 at 21:00 ANGELICA ALTAMIRANO MD Sep 21, 2016 18:31
[2016-09-21] MEDS: FAMOTIDINE 20 MG TAB PO SCH (20:01)
[2016-09-21 20:53] VITALS: BP 129/61; RESP 20
--- NOTE | 2016-09-21 22:24 | CONS ---
DATE OF ADMISSION: 09/21/2016 DATE OF CONSULTATION: TYPE OF CONSULTATION: Gastroenterology. REFERRING PHYSICIAN: Jamel Altamirano MD HISTORY OF PRESENT ILLNESS: The patient is a 55-year-old female with a history of COPD, morbid obes ity, DVT of the lower extremity, [facility] for abdominal [facility]. The patient was evaluated in the ER. Her LFTs were abnormal. CT scan of the abdomen and pelvis done, which jose e wed cirrhosis of liver with a mass in the right lobe of the liver. GI consult was called in for pos sible liver mass. The patient complains of abdominal pain. No nausea, no vomiting, no GI bleeding. No chest pain or shortness of breath. PAST MEDICAL HISTORY: As described. Besides has diabetes mellitus and depression and dysphagia. ALLERGIES: 1. PENICILLIN. 2. TYLENOL. SOCIAL HISTORY: Does not smoke or drink. Resident of prison. FAMILY HISTORY: Negative. MEDICATIONS: All reviewed. REVIEW OF SYSTEMS: Otherwise negative. PHYSICAL EXAMINATION GENERAL: Overweight, morbidly obese, not in distress. VITAL SIGNS: Stable. HEENT: Unremarkable. NECK: Supple. No thyromegaly, no lymphadenopathy. CARDIOVASCULAR: No murmur, gallop, or click. LUNGS: Clear. ABDOMEN: Soft. Tenderness in the right upper quadrant. Bowel sounds good. No mass upper abdomen. EXTREMITIES: No edema. CENTRAL NERVOUS SYSTEM: Grossly within normal limit. LABORATORY DATA: WBC 3.1, hematocrit was 33, platelet count was just 78. Alpha-fetoprotein is pend ing. Total bilirubin was 2.4. An INR was 2.5. IMPRESSION: 1. Abdominal pain. 2. Cirrhosis of liver. 3. Morbid obesity. 4. Possible liver mass, rule out hepatocellular cancer. 5. Chronic obstructive pulmonary disease. 6. Deep venous thrombosis in the lower extremities. 7. Depression. 8. Diabetes mellitus. 9. Cirrhosis of liver. PLAN: At this point, is to send for alpha-fetoprotein. Will do CAT scan, CT of the liver with a 3 phase study. If all this is inconclusive, then will proceed with liver biopsy, making sure that thr ombocytopenia and INR is corrected and patient is off Xarelto. Dictated By: MICHELL GRANT/LORI Conf#: [id number] DID#: [id number] CC: JAMES WELCH MD; JAMEL ALTAMIRANO MD;*[facility]*
[2016-09-22] MEDS: ACCUCHECK AT 2AM (Patients on SS coverage) XX SCH ×2 (02:17→23:49)
[2016-09-22] MEDS: DEXTROSE 5%-0.45% NACL 1,000 ML IV SCH ×2 (02:41→23:47)
[2016-09-22 05:32] VITALS: BP 134/58; PULSE 89
[2016-09-22] MEDS: FUROSEMIDE 20 MG TAB PO SCH (05:32)
[2016-09-22] MEDS: INSULIN ASPART [NOVOLOG] 3 ML PEN SC SCH ×4 (08:00→20:30)
[2016-09-22 08:33] VITALS: BP 109/84; RESP 18
[2016-09-22] MEDS: BENAZEPRIL 10 MG TAB PO SCH (09:00)
[2016-09-22] MEDS: OCULAR LUBRICANT 3.5 GM OPH OINT BOTH EYES SCH ×2 (09:18→20:31)
[2016-09-22] MEDS: CHLORHEXIDINE GLUCONATE 15 ML UD CUP MM SCH ×2 (09:19→20:31)
[2016-09-22] MEDS: OXYBUTYNIN 5 MG TAB PO SCH ×2 (09:19→20:31)
[2016-09-22] MEDS: ESCITALOPRAM 10 MG TAB PO SCH (09:20)
[2016-09-22] MEDS: APIXABAN 5 MG TABLET PO SCH ×2 (09:20→20:31)
[2016-09-22] MEDS: GABAPENTIN 100 MG CAP PO SCH (09:26)
[2016-09-22] MEDS: ASCORBIC ACID 500 MG TAB PO SCH (09:26)
[2016-09-22] MEDS: ZINC SULFATE 220 MG CAP PO SCH (09:26)
[2016-09-22] MEDS: MULTIVITAMINS THERAPEUTIC TAB PO SCH (09:26)
[2016-09-22] MEDS: MUPIROCIN 2% 22 GM OINT TOP SCH ×2 (09:26→20:32)
[2016-09-22] MEDS: FAMOTIDINE 20 MG TAB PO SCH ×2 (09:26→20:31)
[2016-09-22] MEDS: traMADol 50 MG TAB PO PRN (09:43)
--- NOTE | 2016-09-22 10:00 | CONS ---
Date/Time of Note Date/Time of Note DATE: 09/22/16 TIME: 09:58 Assessment/Plan Assessment/Plan Additional Assessment/Plan IMPRESSION: 1. Abdominal pain. 2. Cirrhosis of liver. 3. Morbid obesity. 4. Possible liver mass, rule out hepatocellular cancer. 5. Chronic obstructive pulmonary disease. 6. Deep venous thrombosis in the lower extremities. 7. Depression. 8. Diabetes mellitus. 9. Cirrhosis of liver. PLAN: At this point, is to send for alpha-fetoprotein. Will do CAT scan, CT of the liver with a 3 phase study. If all this is inconclusive, then will proceed with liver biopsy, making sure that thrombocytopenia and INR is corrected and patient is off Xarelto. repeat PT . Consultation Date/Type/Reason Admit Date/Time Sep 21, 2016 at 10:00 Initial Consult Date 09/21/16 Type of Consultation: oncology/ hematology Referring Provider: ANGELICA ALTAMIRANO MD 24 HR Interval Summary Constitutional: no complaints Exam/Review of Systems Vital Signs Vitals Vital Signs Date Time Temp Pulse Resp B/P Pulse Ox O2 Delivery O2 Flow Rate FiO2 09/22/16 08:33 98.3 89 18 109/84 92 09/22/16 06:31 5.0 09/22/16 04:55 Aerosol 28 Intake and Output 09/21/16 09/21/16 09/22/16 15:00 23:00 07:00 Intake Total 730 ml 1060 ml Balance 730 ml 1060 ml Exam Constitutional: alert, oriented, well developed Psych: nl mood/affect, no complaints Head: atraumatic, normocephalic Eyes: EOMI, PERRL, nl conjunctiva, nl lids, nl sclera ENMT: nl external ears & nose, nl lips & teeth, nl nasal mucosa & septum Neck: non-tender, supple Respiratory: clear to auscultation, normal air movement Cardiovascular: nl pulses, regular rate and rhythm Gastrointestinal: nl liver, spleen, non-tender, soft Musculoskeletal: nl extremities to inspection, nl gait and stance Extremities: normal pulses 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: [employer] II-XII intact, nl mental status, nl speech, nl strength Skin: nl turgor, No rash or lesions Lymph: nl lymph nodes Results Result Diagram: 09/21/16 0517 09/21/16 0517 Results 24 hrs Laboratory Tests Test 1/4/17 11:30 09/21/16 16:34 09/21/16 19:56 09/22/16 07:48 Bedside Glucose 120 140 128 136 Medications Medications Current Medications Apixaban (Eliquis) 5 mg BID PO Last administered on 09/22/16 09:20; Admin Dose 5 MG; Start 09/20/16 at 09:00 Eye Lubricant (Akwa Oint) 1 applic BID BOTH EYES Last administered on 09/22/16 09:18; Admin Dose 1 APPLIC; Start 09/20/16 at 09:00 Ascorbic Acid (Vitamin C) 500 mg DAILY PO Last administered on 09/22/16 09:26; Admin Dose 500 MG; Start 09/20/16 at 09:00 Benazepril HCl (Lotensin) 10 mg DAILY PO Last administered on 09/21/16 09:45; Admin Dose 10 MG; Start 09/20/16 at 09:00 Bisacodyl (Dulcolax Supp) 10 mg Q24H PRN NV PRN; Start 09/19/16 at 23:30 Chlorhexidine Gluconate (Peridex) 15 ml Q12 MM Last administered on 09/22/16 09 :19; Admin Dose 15 ML; Start 09/20/16 at 09:00 Escitalopram Oxalate (Lexapro) 5 mg DAILY PO Last administered on 09/22/16 09: 20; Admin Dose 5 MG; Start 09/20/16 at 09:00 Furosemide (Lasix) 20 mg DAILY@06 PO Last administered on 09/22/16 05:32; Admin Dose 20 MG; Start 09/20/16 at 06:00 Gabapentin (Neurontin) 100 mg DAILY PO Last administered on 09/22/16 09:26; Admin Dose 100 MG; Start 09/20/16 at 09:00 Magnesium Hydroxide (Milk Of Mag) 30 ml Q24H PRN PO PRN; Start 09/19/16 at 23:30 Multivitamins Therapeutic (Theragran) 1 tab DAILY PO Last administered on 09:26; Admin Dose 1 TAB; Start 09/20/16 at 09:00 Oxybutynin Chloride (Ditropan) 5 mg BID PO Last administered on 09/22/16 09:19 ; Admin Dose 5 MG; Start 09/20/16 at 09:00 Polyethylene Glycol (Miralax) 17 gm DAILY PRN PO PRN; Start 09/19/16 at 23:30 Tramadol HCl (Ultram) 50 mg TID PRN PO PAIN Last administered on 09/22/16 09:43 ; Admin Dose 50 MG; Start 09/19/16 at 23:30 Zinc Sulfate (Zinc Sulfate) 220 mg DAILY PO Last administered on 09/22/16 09:26 ; Admin Dose 220 MG; Start 09/20/16 at 09:00 Diphenhydramine HCl 50 mg 50 mg DAILY PRN PO ITCHING; Start 09/19/16 at 23:30 Dextrose/Sodium Chloride (D5-1/2ns) 1,000 ml @ 40 mls/hr Q24H IV Last administered on 09/22/16 02:41; Admin Dose 40 MLS/HR; Start 09/19/16 at 23:16 Ondansetron HCl (Zofran Inj) 4 mg Q4H PRN IV NAUSEA AND/OR VOMITING Last administered on 09/20/16 06:20; Admin Dose 4 MG; Start 09/19/16 at 23:30 Hydromorphone HCl (Dilaudid) 0.5 mg Q4H PRN IV SEVERE PAIN LEVEL 7-10; Start at 23:30 Diagnostic Test (Pha) (Accucheck) 1 ea 02 XX Last administered on 09/22/16 02: 17; Admin Dose 1 EA; Start 09/20/16 at 02:00 Miscellaneous Information 1 ea NOTE XX ; Start 09/19/16 at 23:45 Glucose (Glutose) 15 gm Q15M PRN PO DECREASED GLUCOSE; Start 09/19/16 at 23:45 Glucose (Glutose) 22.5 gm Q15M PRN PO DECREASED GLUCOSE; Start 09/19/16 at 23:45 Dextrose (D50w Syringe) 25 ml Q15M PRN IV DECREASED GLUCOSE; Start 09/19/16 at 23:45 Dextrose (D50w Syringe) 50 ml Q15M PRN IV DECREASED GLUCOSE; Start 09/19/16 at 23:45 Glucagon (Glucagen) 1 mg Q15M PRN IM DECREASED GLUCOSE; Start 09/19/16 at 23:45 Glucose (Glutose) 15 gm Q15M PRN BUCCAL DECREASED GLUCOSE; Start 1/2/17 at 23: 45 Mupirocin (Bactroban) 1 applic BID TOP Last administered on 09/22/16 09:26; Admin Dose 1 APPLIC; Start 09/21/16 at 12:00 Famotidine (Pepcid) 20 mg BID PO Last administered on 09/22/16 09:26; Admin Dose 20 MG; Start 09/21/16 at 21:00 MICHELL RAMIREZ MD Sep 22, 2016 10:00
--- NOTE | 2016-09-22 11:29 | CONS ---
Date/Time of Note Date/Time of Note DATE: 09/22/16 TIME: 11:23 Assessment/Plan Assessment/Plan Chief Complaint/Hosp Course 55 yo female with history or recurrent DVT who now presents with liver lesions and pancytopenia. Problems: Additional Assessment/Plan # Liver lesion -given cirrhosis we are concerned for HCC -follow AFP. given the results was outside of the reportable range the lab was sent to [facility] and will not results for 3-5 days per produce laborer -agree with checking triple phase CT at this time -if not diagnostic will need to pursue liver biopsy #Pancytopenia -likely secondary to liver cirrhosis -will monitor counts #h/o multiple DVT s/p IVC filter -LE ultrasounds confirms RLE DVT. spoke with radiologist who is not able to determine how old this clot is. -agree with vascular surgery consult to see if patient is candidate or thrombectomy -cont Xarelto for now as it is not clear that patient failed anticoagulation # question on bone mets -spoke with Abner Boateng, radiologist who stated there were infact NO BONE METS on CT. this was a misread and will be addended on the scan Approximately 40 min were spent at patient's bedside and in coordination of her care Consultation Date/Type/Reason Admit Date/Time Sep 21, 2016 at 10:00 Initial Consult Date 09/21/16 Type of Consultation: oncology/ hematology Reason for Consultation liver mass Referring Provider: ANGELICA ALTAMIRANO MD 24 HR Interval Summary Free Text/Dictation no acute overnight events Exam/Review of Systems Vital Signs Vitals Vital Signs Date Time Temp Pulse Resp B/P Pulse Ox O2 Delivery O2 Flow Rate FiO2 09/22/16 11:08 5.0 28 09/22/16 11:08 81 20 97 Aerosol T Tube 09/22/16 08:33 98.3 109/84 Intake and Output 09/21/16 09/21/16 09/22/16 15:00 23:00 07:00 Intake Total 730 ml 1060 ml Balance 730 ml 1060 ml Exam Constitutional: alert, oriented Psych: no complaints Head: normocephalic Eyes: nl conjunctiva ENMT: nl external ears & nose Neck: other Respiratory: clear to auscultation, normal air movement Cardiovascular: regular rate and rhythm Gastrointestinal: soft Genitourinary - Female: nl adnexae Musculoskeletal: nl extremities to inspection Extremities: normal pulses Results Result Diagram: 09/21/1651609/21/1617 Results 24 hrs Laboratory Tests Test 09/21/16 11:30 09/21/16 16:34 09/21/16 19:56 09/22/16 07:48 Bedside Glucose 120 140 128 136 Medications Medications Current Medications Apixaban (Eliquis) 5 mg BID PO Last administered on 09/22/16 09:20; Admin Dose 5 MG; Start 09/20/16 at 09:00 Eye Lubricant (Akwa Oint) 1 applic BID BOTH EYES Last administered on 09/22/16 09:18; Admin Dose 1 APPLIC; Start 09/20/16 at 09:00 Ascorbic Acid (Vitamin C) 500 mg DAILY PO Last administered on 09/22/16 09:26; Admin Dose 500 MG; Start 09/20/16 at 09:00 Benazepril HCl (Lotensin) 10 mg DAILY PO Last administered on 09/21/16 09:45; Admin Dose 10 MG; Start 09/20/16 at 09:00 Bisacodyl (Dulcolax Supp) 10 mg Q24H PRN ME PRN; Start 09/19/16 at 23:30 Chlorhexidine Gluconate (Peridex) 15 ml Q12 MM Last administered on 09/22/16 09 :19; Admin Dose 15 ML; Start 09/20/16 at 09:00 Escitalopram Oxalate (Lexapro) 5 mg DAILY PO Last administered on 09/22/16 09: 20; Admin Dose 5 MG; Start 09/20/16 at 09:00 Furosemide (Lasix) 20 mg DAILY@06 PO Last administered on 09/22/16 05:32; Admin Dose 20 MG; Start 09/20/16 at 06:00 Gabapentin (Neurontin) 100 mg DAILY PO Last administered on 09/22/16 09:26; Admin Dose 100 MG; Start 09/20/16 at 09:00 Magnesium Hydroxide (Milk Of Mag) 30 ml Q24H PRN PO PRN; Start 09/19/16 at 23:30 Multivitamins Therapeutic (Theragran) 1 tab DAILY PO Last administered on 09:26; Admin Dose 1 TAB; Start 09/20/16 at 09:00 Oxybutynin Chloride (Ditropan) 5 mg BID PO Last administered on 09/22/16 09:19 ; Admin Dose 5 MG; Start 09/20/16 at 09:00 Polyethylene Glycol (Miralax) 17 gm DAILY PRN PO PRN; Start 09/19/16 at 23:30 Tramadol HCl (Ultram) 50 mg TID PRN PO PAIN Last administered on 09/22/16 09:43 ; Admin Dose 50 MG; Start 09/19/16 at 23:30 Zinc Sulfate (Zinc Sulfate) 220 mg DAILY PO Last administered on 09/22/16 09:26 ; Admin Dose 220 MG; Start 09/20/16 at 09:00 Diphenhydramine HCl 50 mg 50 mg DAILY PRN PO ITCHING; Start 09/19/16 at 23:30 Dextrose/Sodium Chloride (D5-1/2ns) 1,000 ml @ 40 mls/hr Q24H IV Last administered on 09/22/16 02:41; Admin Dose 40 MLS/HR; Start 09/19/16 at 23:16 Ondansetron HCl (Zofran Inj) 4 mg Q4H PRN IV NAUSEA AND/OR VOMITING Last administered on 09/20/16 06:20; Admin Dose 4 MG; Start 09/19/16 at 23:30 Hydromorphone HCl (Dilaudid) 0.5 mg Q4H PRN IV SEVERE PAIN LEVEL 7-10; Start at 23:30 Diagnostic Test (Pha) (Accucheck) 1 ea 02 XX Last administered on 09/22/16 02: 17; Admin Dose 1 EA; Start 09/20/16 at 02:00 Miscellaneous Information 1 ea NOTE XX ; Start 09/19/16 at 23:45 Glucose (Glutose) 15 gm Q15M PRN PO DECREASED GLUCOSE; Start 09/19/16 at 23:45 Glucose (Glutose) 22.5 gm Q15M PRN PO DECREASED GLUCOSE; Start 09/19/16 at 23:45 Dextrose (D50w Syringe) 25 ml Q15M PRN IV DECREASED GLUCOSE; Start 09/19/16 at 23:45 Dextrose (D50w Syringe) 50 ml Q15M PRN IV DECREASED GLUCOSE; Start 09/19/16 at 23:45 Glucagon (Glucagen) 1 mg Q15M PRN IM DECREASED GLUCOSE; Start 09/19/16 at 23:45 Glucose (Glutose) 15 gm Q15M PRN BUCCAL DECREASED GLUCOSE; Start 09/19/16 at 23: 45 Mupirocin (Bactroban) 1 applic BID TOP Last administered on 09/22/16 09:26; Admin Dose 1 APPLIC; Start 09/21/16 at 12:00 Famotidine (Pepcid) 20 mg BID PO Last administered on 09/22/16 09:26; Admin Dose 20 MG; Start 09/21/16 at 21:00 ELTON LINCOLN M.D. Sep 22, 2016 11:29
--- NOTE | 2016-09-22 14:04 | PN ---
Date/Time of Note Date/Time of Note DATE: 09/22/16 TIME: 14:03 Assessment/Plan VTE Prophylaxis VTE Prophylaxis Intervention: other Lines/Catheters IV Catheter Type (from [facility]): Peripheral IV Urinary Cath still in place: No Assessment/Plan Chief Complaint/Hosp Course IMPRESSION: 1. The patient has abdominal pain.better 2. Rule out malignancy. 3. Abnormal LFT. 4. Hypertension, diabetes mellitus, obesity, tracheostomy, COPD, DVT, history of inferior vena cava filter placement. plan gi pending dr grimes called per dr mccarthy Problems: Subjective 24 Hr Interval Summary Cardiovascular: no complaints Gastrointestinal: no complaints Exam/Review of Systems Vital Signs Vitals Vital Signs Date Time Temp Pulse Resp B/P Pulse Ox O2 Delivery O2 Flow Rate FiO2 09/22/16 11:08 5.0 28 09/22/16 11:08 81 20 97 Aerosol T Tube 09/22/16 08:33 98.3 109/84 Intake and Output 09/21/16 09/21/16 09/22/16 15:00 23:00 07:00 Intake Total 730 ml 1060 ml Balance 730 ml 1060 ml Exam Respiratory: clear to auscultation Cardiovascular: regular rate and rhythm Gastrointestinal: soft Musculoskeletal: nl extremities to inspection Extremities: normal pulses Results Result Diagram: 09/21/1651609/21/16516 Results 24 hrs Laboratory Tests Test 09/21/16 16:34 09/21/16 19:56 09/22/16 07:48 09/22/16 12:10 Bedside Glucose 140 128 136 142 Medications Medications Current Medications Apixaban (Eliquis) 5 mg BID PO Last administered on 09/22/16 09:20; Admin Dose 5 MG; Start 09/20/16 at 09:00 Eye Lubricant (Akwa Oint) 1 applic BID BOTH EYES Last administered on 09/22/16 09:18; Admin Dose 1 APPLIC; Start 09/20/16 at 09:00 Ascorbic Acid (Vitamin C) 500 mg DAILY PO Last administered on 09/22/16 09:26; Admin Dose 500 MG; Start 09/20/16 at 09:00 Benazepril HCl (Lotensin) 10 mg DAILY PO Last administered on 09/21/16 09:45; Admin Dose 10 MG; Start 09/20/16 at 09:00 Bisacodyl (Dulcolax Supp) 10 mg Q24H PRN [place] PRN; Start 09/19/16 at 23:30 Chlorhexidine Gluconate (Peridex) 15 ml Q12 MM Last administered on 09/22/16 09 :19; Admin Dose 15 ML; Start 09/20/16 at 09:00 Escitalopram Oxalate (Lexapro) 5 mg DAILY PO Last administered on 09/22/16 09: 20; Admin Dose 5 MG; Start 09/20/16 at 09:00 Furosemide (Lasix) 20 mg DAILY@06 PO Last administered on 09/22/16 05:32; Admin Dose 20 MG; Start 09/20/16 at 06:00 Gabapentin (Neurontin) 100 mg DAILY PO Last administered on 09/22/16 09:26; Admin Dose 100 MG; Start 09/20/16 at 09:00 Magnesium Hydroxide (Milk Of Mag) 30 ml Q24H PRN PO PRN; Start 09/19/16 at 23:30 Multivitamins Therapeutic (Theragran) 1 tab DAILY PO Last administered on 09:26; Admin Dose 1 TAB; Start 09/20/16 at 09:00 Oxybutynin Chloride (Ditropan) 5 mg BID PO Last administered on 09/22/16 09:19 ; Admin Dose 5 MG; Start 09/20/16 at 09:00 Polyethylene Glycol (Miralax) 17 gm DAILY PRN PO PRN; Start 09/19/16 at 23:30 Tramadol HCl (Ultram) 50 mg TID PRN PO PAIN Last administered on 09/22/16 09:43 ; Admin Dose 50 MG; Start 09/19/16 at 23:30 Zinc Sulfate (Zinc Sulfate) 220 mg DAILY PO Last administered on 09/22/16 09:26 ; Admin Dose 220 MG; Start 09/20/16 at 09:00 Diphenhydramine HCl 50 mg 50 mg DAILY PRN PO ITCHING; Start 09/19/16 at 23:30 Dextrose/Sodium Chloride (D5-1/2ns) 1,000 ml @ 40 mls/hr Q24H IV Last administered on 09/22/16 02:41; Admin Dose 40 MLS/HR; Start 09/19/16 at 23:16 Ondansetron HCl (Zofran Inj) 4 mg Q4H PRN IV NAUSEA AND/OR VOMITING Last administered on 09/20/16 06:20; Admin Dose 4 MG; Start 09/19/16 at 23:30 Hydromorphone HCl (Dilaudid) 0.5 mg Q4H PRN IV SEVERE PAIN LEVEL 7-10; Start at 23:30 Diagnostic Test (Pha) (Accucheck) 1 ea 02 XX Last administered on 09/22/16 02: 17; Admin Dose 1 EA; Start 09/20/16 at 02:00 Miscellaneous Information 1 ea NOTE XX ; Start 09/19/16 at 23:45 Glucose (Glutose) 15 gm Q15M PRN PO DECREASED GLUCOSE; Start 09/19/16 at 23:45 Glucose (Glutose) 22.5 gm Q15M PRN PO DECREASED GLUCOSE; Start 09/19/16 at 23:45 Dextrose (D50w Syringe) 25 ml Q15M PRN IV DECREASED GLUCOSE; Start 09/19/16 at 23:45 Dextrose (D50w Syringe) 50 ml Q15M PRN IV DECREASED GLUCOSE; Start 09/19/16 at 23:45 Glucagon (Glucagen) 1 mg Q15M PRN IM DECREASED GLUCOSE; Start 09/19/16 at 23:45 Glucose (Glutose) 15 gm Q15M PRN BUCCAL DECREASED GLUCOSE; Start 09/19/16 at 23: 45 Mupirocin (Bactroban) 1 applic BID TOP Last administered on 09/22/16 09:26; Admin Dose 1 APPLIC; Start 09/21/16 at 12:00 Famotidine (Pepcid) 20 mg BID PO Last administered on 09/22/16 09:26; Admin Dose 20 MG; Start 09/21/16 at 21:00 ANGELICA ALTAMIRANO MD Sep 22, 2016 14:04
[2016-09-22 20:10] VITALS: BP 135/53; RESP 18
[2016-09-22] MEDS: NYSTATIN 30 GM POWDER BTL TOP SCH (20:32)
[2016-09-23] MEDS: ALBUTEROL 0.083% (NEB) 2.5 MG/3 ML AMP NEB PRN (02:03)
[2016-09-23] MEDS: POLYETHYLENE GLYCOL 17 GM PACKET PO PRN (05:23)
[2016-09-23] MEDS: FUROSEMIDE 20 MG TAB PO SCH (05:23)
[2016-09-23 07:45] VITALS: BP 125/58; RESP 20
[2016-09-23] MEDS: INSULIN ASPART [NOVOLOG] 3 ML PEN SC SCH ×4 (08:00→21:00)
[2016-09-23] MEDS: MULTIVITAMINS THERAPEUTIC TAB PO SCH (08:24)
[2016-09-23] MEDS: CHLORHEXIDINE GLUCONATE 15 ML UD CUP MM SCH ×2 (08:24→22:21)
[2016-09-23] MEDS: ZINC SULFATE 220 MG CAP PO SCH (08:24)
[2016-09-23] MEDS: BENAZEPRIL 10 MG TAB PO SCH (08:25)
[2016-09-23] MEDS: ASCORBIC ACID 500 MG TAB PO SCH (08:26)
[2016-09-23] MEDS: OXYBUTYNIN 5 MG TAB PO SCH ×2 (08:26→22:22)
[2016-09-23] MEDS: GABAPENTIN 100 MG CAP PO SCH (08:26)
[2016-09-23] MEDS: ESCITALOPRAM 10 MG TAB PO SCH (08:26)
[2016-09-23] MEDS: FAMOTIDINE 20 MG TAB PO SCH ×2 (08:27→22:22)
[2016-09-23] MEDS: APIXABAN 5 MG TABLET PO SCH ×2 (08:27→22:35)
[2016-09-23] MEDS: OCULAR LUBRICANT 3.5 GM OPH OINT BOTH EYES SCH ×2 (08:28→22:22)
[2016-09-23] MEDS: MUPIROCIN 2% 22 GM OINT TOP SCH ×2 (08:37→22:34)
[2016-09-23] MEDS: NYSTATIN 30 GM POWDER BTL TOP SCH ×2 (08:37→22:35)
--- NOTE | 2016-09-23 11:43 | CONS ---
Date/Time of Note Date/Time of Note DATE: 09/23/16 TIME: 11:40 Assessment/Plan Assessment/Plan Additional Assessment/Plan IMPRESSION: 1. Abdominal pain. 2. Cirrhosis of liver. 3. Morbid obesity. 4. Possible liver mass, rule out hepatocellular cancer. 5. Chronic obstructive pulmonary disease. 6. Deep venous thrombosis in the lower extremities. 7. Depression. 8. Diabetes mellitus. 9. Cirrhosis of liver. Plan 3 phase study for liver pending. harmony feto protein pending repeat INR preparing pt. for biopsy Consultation Date/Type/Reason Admit Date/Time Sep 21, 2016 at 10:00 Initial Consult Date 09/21/16 Type of Consultation: oncology/ hematology Referring Provider: ANGELICA ALTAMIRANO MD 24 HR Interval Summary Constitutional: no complaints Exam/Review of Systems Vital Signs Vitals Vital Signs Date Time Temp Pulse Resp B/P Pulse Ox O2 Delivery O2 Flow Rate FiO2 09/23/16 07:45 98.4 83 20 125/58 96 09/23/16 02:23 5.0 28 09/23/16 02:03 Aerosol Intake and Output 09/22/16 09/22/16 09/23/16 15:00 23:00 07:00 Intake Total 780 ml 1240 ml Balance 780 ml 1240 ml Exam Constitutional: alert, oriented, well developed Psych: nl mood/affect, no complaints Head: atraumatic, normocephalic Eyes: EOMI, PERRL, nl conjunctiva, nl lids, nl sclera ENMT: nl external ears & nose, nl lips & teeth, nl nasal mucosa & septum Neck: non-tender, supple Respiratory: clear to auscultation, normal air movement Cardiovascular: nl pulses, regular rate and rhythm Gastrointestinal: nl liver, spleen, non-tender, soft Musculoskeletal: nl extremities to inspection, nl gait and stance Extremities: normal pulses 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: ICT DEVELOPER II-XII intact, nl mental status, nl speech, nl strength Skin: nl turgor, No rash or lesions Lymph: nl lymph nodes Results Result Diagram: 09/21/1651609/21/16516 Results 24 hrs Laboratory Tests Test 09/22/16 12:10 09/22/16 16:55 09/22/16 20:29 09/23/16 07:55 Bedside Glucose 142 133 131 136 Test 09/23/16 11:13 Bedside Glucose 149 Medications Medications Current Medications Apixaban (Eliquis) 5 mg BID PO Last administered on 09/23/16 08:27; Admin Dose 5 MG; Start 09/20/16 at 09:00 Eye Lubricant (Akwa Oint) 1 applic BID BOTH EYES Last administered on 09/23/16 08:28; Admin Dose 1 APPLIC; Start 09/20/16 at 09:00 Ascorbic Acid (Vitamin C) 500 mg DAILY PO Last administered on 09/23/16 08:26; Admin Dose 500 MG; Start 09/20/16 at 09:00 Benazepril HCl (Lotensin) 10 mg DAILY PO Last administered on 09/23/16 08:25; Admin Dose 10 MG; Start 09/20/16 at 09:00 Bisacodyl (Dulcolax Supp) 10 mg Q24H PRN [place] PRN; Start 09/19/16 at 23:30 Chlorhexidine Gluconate (Peridex) 15 ml Q12 MM Last administered on 09/23/16 08 :24; Admin Dose 15 ML; Start 09/20/16 at 09:00 Escitalopram Oxalate (Lexapro) 5 mg DAILY PO Last administered on 09/23/16 08: 26; Admin Dose 5 MG; Start 09/20/16 at 09:00 Furosemide (Lasix) 20 mg DAILY@06 PO Last administered on 09/23/16 05:23; Admin Dose 20 MG; Start 09/20/16 at 06:00 Gabapentin (Neurontin) 100 mg DAILY PO Last administered on 09/23/16 08:26; Admin Dose 100 MG; Start 09/20/16 at 09:00 Magnesium Hydroxide (Milk Of Mag) 30 ml Q24H PRN PO PRN; Start 09/19/16 at 23:30 Multivitamins Therapeutic (Theragran) 1 tab DAILY PO Last administered on 08:24; Admin Dose 1 TAB; Start 09/20/16 at 09:00 Oxybutynin Chloride (Ditropan) 5 mg BID PO Last administered on 09/23/16 08:26 ; Admin Dose 5 MG; Start 09/20/16 at 09:00 Polyethylene Glycol (Miralax) 17 gm DAILY PRN PO PRN Last administered on 05:23; Admin Dose 17 GM; Start 09/19/16 at 23:30 Tramadol HCl (Ultram) 50 mg TID PRN PO PAIN Last administered on 09/22/16 09:43 ; Admin Dose 50 MG; Start 09/19/16 at 23:30 Zinc Sulfate (Zinc Sulfate) 220 mg DAILY PO Last administered on 09/23/16 08:24 ; Admin Dose 220 MG; Start 09/20/16 at 09:00 Diphenhydramine HCl 50 mg 50 mg DAILY PRN PO ITCHING; Start 09/19/16 at 23:30 Dextrose/Sodium Chloride (D5-1/2ns) 1,000 ml @ 40 mls/hr Q24H IV Last administered on 09/22/16 23:47; Admin Dose 40 MLS/HR; Start 09/19/16 at 23:16 Ondansetron HCl (Zofran Inj) 4 mg Q4H PRN IV NAUSEA AND/OR VOMITING Last administered on 09/20/16 06:20; Admin Dose 4 MG; Start 09/19/16 at 23:30 Hydromorphone HCl (Dilaudid) 0.5 mg Q4H PRN IV SEVERE PAIN LEVEL 7-10; Start at 23:30 Diagnostic Test (Pha) (Accucheck) 1 ea 02 XX Last administered on 09/22/16 02: 17; Admin Dose 1 EA; Start 09/20/16 at 02:00 Miscellaneous Information 1 ea NOTE XX ; Start 09/19/16 at 23:45 Glucose (Glutose) 15 gm Q15M PRN PO DECREASED GLUCOSE; Start 09/19/16 at 23:45 Glucose (Glutose) 22.5 gm Q15M PRN PO DECREASED GLUCOSE; Start 09/19/16 at 23:45 Dextrose (D50w Syringe) 25 ml Q15M PRN IV DECREASED GLUCOSE; Start 09/19/16 at 23:45 Dextrose (D50w Syringe) 50 ml Q15M PRN IV DECREASED GLUCOSE; Start 09/19/16 at 23:45 Glucagon (Glucagen) 1 mg Q15M PRN IM DECREASED GLUCOSE; Start 09/19/16 at 23:45 Glucose (Glutose) 15 gm Q15M PRN BUCCAL DECREASED GLUCOSE; Start 09/19/16 at 23: 45 Mupirocin (Bactroban) 1 applic BID TOP Last administered on 09/23/16 08:37; Admin Dose 1 APPLIC; Start 09/21/16 at 12:00 Famotidine (Pepcid) 20 mg BID PO Last administered on 09/23/16 08:27; Admin Dose 20 MG; Start 09/21/16 at 21:00 Nystatin (Nystatin Powder) 1 applic BID TOP Last administered on 09/23/16 08:37 ; Admin Dose 1 APPLIC; Start 09/22/16 at 21:00 MICHELL RAMIREZ MD Sep 23, 2016 11:42
--- NOTE | 2016-09-23 12:43 | CONS ---
Date/Time of Note Date/Time of Note DATE: 09/23/16 TIME: 12:40 Assessment/Plan Assessment/Plan Chief Complaint/Hosp Course 55 yo female with history or recurrent DVT who now presents with liver lesions and pancytopenia. Problems: Additional Assessment/Plan # Liver lesion -given cirrhosis we are concerned for HCC -follow AFP. given the results was outside of the reportable range the lab was sent to [facility] and will not results for 3-5 days per clinical lab clerk -agree with checking triple phase CT at this time. to happen today -if not diagnostic will need to pursue liver biopsy #Pancytopenia -likely secondary to liver cirrhosis -will monitor counts #h/o multiple DVT s/p IVC filter -LE ultrasounds confirms RLE DVT. spoke with radiologist who is not able to determine how old this clot is. -agree with vascular surgery consult to see if patient is candidate or thrombectomy -cont Xarelto for now as it is not clear that patient failed anticoagulation # question on bone mets -spoke with Abner Boateng, radiologist who stated there were infact NO BONE METS on CT. this was a misread and will be amended on the scan Approximately 40 min were spent at patient's bedside and in coordination of her care Consultation Date/Type/Reason Admit Date/Time Sep 21, 2016 at 10:00 Initial Consult Date 09/21/16 Type of Consultation: oncology/ hematology Reason for Consultation concern for hepatocellular carcinoma Referring Provider: ANGELICA ALTAMIRANO MD 24 HR Interval Summary Free Text/Dictation no acute overnight events. pt awaiting her CT abd to happen today Exam/Review of Systems Vital Signs Vitals Vital Signs Date Time Temp Pulse Resp B/P Pulse Ox O2 Delivery O2 Flow Rate FiO2 09/23/16 07:45 98.4 83 20 125/58 96 09/23/16 02:23 5.0 28 09/23/16 02:03 Aerosol Intake and Output 09/22/16 09/22/16 09/23/16 15:00 23:00 07:00 Intake Total 780 ml 1240 ml Balance 780 ml 1240 ml Exam Constitutional: alert, obese, oriented Psych: no complaints Head: atraumatic, normocephalic Eyes: nl conjunctiva ENMT: nl external ears & nose, nl lips & teeth Neck: non-tender, other (trach in place), supple Respiratory: clear to auscultation, normal air movement Cardiovascular: regular rate and rhythm Gastrointestinal: nl liver, spleen, soft Musculoskeletal: nl extremities to inspection, nl gait and stance Results Result Diagram: 09/21/1651609/21/16516 Results 24 hrs Laboratory Tests Test 09/22/16 16:55 09/22/16 20:29 09/23/16 07:55 09/23/16 11:13 Bedside Glucose 133 131 136 149 Medications Medications Current Medications Apixaban (Eliquis) 5 mg BID PO Last administered on 09/23/16 08:27; Admin Dose 5 MG; Start 09/20/16 at 09:00 Eye Lubricant (Akwa Oint) 1 applic BID BOTH EYES Last administered on 09/23/16 08:28; Admin Dose 1 APPLIC; Start 09/20/16 at 09:00 Ascorbic Acid (Vitamin C) 500 mg DAILY PO Last administered on 09/23/16 08:26; Admin Dose 500 MG; Start 09/20/16 at 09:00 Benazepril HCl (Lotensin) 10 mg DAILY PO Last administered on 09/23/16 08:25; Admin Dose 10 MG; Start 09/20/16 at 09:00 Bisacodyl (Dulcolax Supp) 10 mg Q24H PRN [place] PRN; Start 09/19/16 at 23:30 Chlorhexidine Gluconate (Peridex) 15 ml Q12 MM Last administered on 09/23/16 08 :24; Admin Dose 15 ML; Start 09/20/16 at 09:00 Escitalopram Oxalate (Lexapro) 5 mg DAILY PO Last administered on 09/23/16 08: 26; Admin Dose 5 MG; Start 09/20/16 at 09:00 Furosemide (Lasix) 20 mg DAILY@06 PO Last administered on 09/23/16 05:23; Admin Dose 20 MG; Start 09/20/16 at 06:00 Gabapentin (Neurontin) 100 mg DAILY PO Last administered on 09/23/16 08:26; Admin Dose 100 MG; Start 09/20/16 at 09:00 Magnesium Hydroxide (Milk Of Mag) 30 ml Q24H PRN PO PRN; Start 09/19/16 at 23:30 Multivitamins Therapeutic (Theragran) 1 tab DAILY PO Last administered on 08:24; Admin Dose 1 TAB; Start 09/20/16 at 09:00 Oxybutynin Chloride (Ditropan) 5 mg BID PO Last administered on 09/23/16 08:26 ; Admin Dose 5 MG; Start 09/20/16 at 09:00 Polyethylene Glycol (Miralax) 17 gm DAILY PRN PO PRN Last administered on 05:23; Admin Dose 17 GM; Start 09/19/16 at 23:30 Tramadol HCl (Ultram) 50 mg TID PRN PO PAIN Last administered on 09/22/16 09:43 ; Admin Dose 50 MG; Start 09/19/16 at 23:30 Zinc Sulfate (Zinc Sulfate) 220 mg DAILY PO Last administered on 09/23/16 08:24 ; Admin Dose 220 MG; Start 09/20/16 at 09:00 Diphenhydramine HCl 50 mg 50 mg DAILY PRN PO ITCHING; Start 09/19/16 at 23:30 Dextrose/Sodium Chloride (D5-1/2ns) 1,000 ml @ 40 mls/hr Q24H IV Last administered on 09/22/16 23:47; Admin Dose 40 MLS/HR; Start 09/19/16 at 23:16 Ondansetron HCl (Zofran Inj) 4 mg Q4H PRN IV NAUSEA AND/OR VOMITING Last administered on 09/20/16 06:20; Admin Dose 4 MG; Start 09/19/16 at 23:30 Hydromorphone HCl (Dilaudid) 0.5 mg Q4H PRN IV SEVERE PAIN LEVEL 7-10; Start at 23:30 Diagnostic Test (Pha) (Accucheck) 1 ea 02 XX Last administered on 09/22/16 02: 17; Admin Dose 1 EA; Start 09/20/16 at 02:00 Miscellaneous Information 1 ea NOTE XX ; Start 09/19/16 at 23:45 Glucose (Glutose) 15 gm Q15M PRN PO DECREASED GLUCOSE; Start 09/19/16 at 23:45 Glucose (Glutose) 22.5 gm Q15M PRN PO DECREASED GLUCOSE; Start 09/19/16 at 23:45 Dextrose (D50w Syringe) 25 ml Q15M PRN IV DECREASED GLUCOSE; Start 09/19/16 at 23:45 Dextrose (D50w Syringe) 50 ml Q15M PRN IV DECREASED GLUCOSE; Start 09/19/16 at 23:45 Glucagon (Glucagen) 1 mg Q15M PRN IM DECREASED GLUCOSE; Start 09/19/16 at 23:45 Glucose (Glutose) 15 gm Q15M PRN BUCCAL DECREASED GLUCOSE; Start 09/19/16 at 23: 45 Mupirocin (Bactroban) 1 applic BID TOP Last administered on 09/23/16 08:37; Admin Dose 1 APPLIC; Start 09/21/16 at 12:00 Famotidine (Pepcid) 20 mg BID PO Last administered on 09/23/16 08:27; Admin Dose 20 MG; Start 09/21/16 at 21:00 Nystatin (Nystatin Powder) 1 applic BID TOP Last administered on 09/23/16 08:37 ; Admin Dose 1 APPLIC; Start 09/22/16 at 21:00 ELTON LINCOLN M.D. Sep 23, 2016 12:43
[2016-09-23] MEDS: traMADol 50 MG TAB PO PRN ×2 (16:20→22:20)
[2016-09-23] MEDS ORDERED: IOHEXOL 100 ML ONE (17:09)
[2016-09-23] MEDS ORDERED: SOD CHLORIDE 0.9% 100 ML ONE (17:10)
--- NOTE | 2016-09-23 17:10 | PN ---
Date/Time of Note Date/Time of Note DATE: 09/23/16 TIME: 17:09 Assessment/Plan VTE Prophylaxis VTE Prophylaxis Intervention: other Lines/Catheters IV [facility] ([facility] Peripheral IV Urinary Cath still in place: No Assessment/Plan Chief Complaint/Hosp Course IMPRESSION: 1. The patient has abdominal pain.better 2. Rule out malignancy. 3. Abnormal LFT. 4. Hypertension, diabetes mellitus, obesity, tracheostomy, COPD, DVT, history of inferior vena cava filter placement. 5 r/o liver tumor plan gi pending per gi per dr mccarthy Problems: Subjective 24 Hr Interval Summary Cardiovascular: no complaints Gastrointestinal: diarrhea Genitourinary: no complaints Exam/Review of Systems Vital Signs Vitals Vital Signs Date Time Temp Pulse Resp B/P Pulse Ox O2 Delivery O2 Flow Rate FiO2 09/23/16 07:45 98.4 83 20 125/58 96 09/23/16 02:23 5.0 28 09/23/16 02:03 Aerosol Intake and Output 09/22/16 09/22/16 09/23/16 15:00 23:00 07:00 Intake Total 780 ml 1240 ml Balance 780 ml 1240 ml Exam Neck: supple Respiratory: clear to auscultation Cardiovascular: regular rate and rhythm Gastrointestinal: soft Results Result Diagram: 09/21/1651609/21/16516 Results 24 hrs Laboratory Tests Test 09/22/16 20:29 09/23/16 07:55 09/23/16 11:13 09/23/16 16:25 Bedside Glucose 131 136 149 161 Medications Medications Current Medications Apixaban (Eliquis) 5 mg BID PO Last administered on 09/23/16 08:27; Admin Dose 5 MG; Start 09/20/16 at 09:00 Eye Lubricant (Akwa Oint) 1 applic BID BOTH EYES Last administered on 09/23/16 08:28; Admin Dose 1 APPLIC; Start 09/20/16 at 09:00 Ascorbic Acid (Vitamin C) 500 mg DAILY PO Last administered on 09/23/16 08:26; Admin Dose 500 MG; Start 09/20/16 at 09:00 Benazepril HCl (Lotensin) 10 mg DAILY PO Last administered on 09/23/16 08:25; Admin Dose 10 MG; Start 09/20/16 at 09:00 Bisacodyl (Dulcolax Supp) 10 mg Q24H PRN [place] PRN; Start 09/19/16 at 23:30 Chlorhexidine Gluconate (Peridex) 15 ml Q12 MM Last administered on 09/23/16 08 :24; Admin Dose 15 ML; Start 09/20/16 at 09:00 Escitalopram Oxalate (Lexapro) 5 mg DAILY PO Last administered on 09/23/16 08: 26; Admin Dose 5 MG; Start 09/20/16 at 09:00 Furosemide (Lasix) 20 mg DAILY@06 PO Last administered on 09/23/16 05:23; Admin Dose 20 MG; Start 09/20/16 at 06:00 Gabapentin (Neurontin) 100 mg DAILY PO Last administered on 09/23/16 08:26; Admin Dose 100 MG; Start 09/20/16 at 09:00 Magnesium Hydroxide (Milk Of Mag) 30 ml Q24H PRN PO PRN; Start 09/19/16 at 23:30 Multivitamins Therapeutic (Theragran) 1 tab DAILY PO Last administered on 08:24; Admin Dose 1 TAB; Start 09/20/16 at 09:00 Oxybutynin Chloride (Ditropan) 5 mg BID PO Last administered on 09/23/16 08:26 ; Admin Dose 5 MG; Start 09/20/16 at 09:00 Polyethylene Glycol (Miralax) 17 gm DAILY PRN PO PRN Last administered on 05:23; Admin Dose 17 GM; Start 09/19/16 at 23:30 Tramadol HCl (Ultram) 50 mg TID PRN PO PAIN Last administered on 09/23/16 16:20 ; Admin Dose 50 MG; Start 09/19/16 at 23:30 Zinc Sulfate (Zinc Sulfate) 220 mg DAILY PO Last administered on 09/23/16 08:24 ; Admin Dose 220 MG; Start 09/20/16 at 09:00 Diphenhydramine HCl 50 mg 50 mg DAILY PRN PO ITCHING; Start 09/19/16 at 23:30 Dextrose/Sodium Chloride (D5-1/2ns) 1,000 ml @ 40 mls/hr Q24H IV Last administered on 09/22/16 23:47; Admin Dose 40 MLS/HR; Start 09/19/16 at 23:16 Ondansetron HCl (Zofran Inj) 4 mg Q4H PRN IV NAUSEA AND/OR VOMITING Last administered on 09/20/16 06:20; Admin Dose 4 MG; Start 09/19/16 at 23:30 Hydromorphone HCl (Dilaudid) 0.5 mg Q4H PRN IV SEVERE PAIN LEVEL 7-10; Start at 23:30 Diagnostic Test (Pha) (Accucheck) 1 ea 02 XX Last administered on 09/22/16 02: 17; Admin Dose 1 EA; Start 09/20/16 at 02:00 Miscellaneous Information 1 ea NOTE XX ; Start 09/19/16 at 23:45 Glucose (Glutose) 15 gm Q15M PRN PO DECREASED GLUCOSE; Start 09/19/16 at 23:45 Glucose (Glutose) 22.5 gm Q15M PRN PO DECREASED GLUCOSE; Start 09/19/16 at 23:45 Dextrose (D50w Syringe) 25 ml Q15M PRN IV DECREASED GLUCOSE; Start 09/19/16 at 23:45 Dextrose (D50w Syringe) 50 ml Q15M PRN IV DECREASED GLUCOSE; Start 09/19/16 at 23:45 Glucagon (Glucagen) 1 mg Q15M PRN IM DECREASED GLUCOSE; Start 09/19/16 at 23:45 Glucose (Glutose) 15 gm Q15M PRN BUCCAL DECREASED GLUCOSE; Start 09/19/16 at 23: 45 Mupirocin (Bactroban) 1 applic BID TOP Last administered on 09/23/16 08:37; Admin Dose 1 APPLIC; Start 09/21/16 at 12:00 Famotidine (Pepcid) 20 mg BID PO Last administered on 09/23/16 08:27; Admin Dose 20 MG; Start 09/21/16 at 21:00 Nystatin (Nystatin Powder) 1 applic BID TOP Last administered on 09/23/16 08:37 ; Admin Dose 1 APPLIC; Start 09/22/16 at 21:00 ANGELICA ALTAMIRANO MD Sep 23, 2016 17:10
--- NOTE | 2016-09-23 19:46 | RADRPT ---
PROCEDURE: CT Abdomen with and without contrast. CLINICAL INDICATION: Liver mass TECHNIQUE: CT scan of the abdomen with and without contrast was performed on a multidetector high- resolution CT scanner. 100 cc of Visipaque 320 was injected intravenously. Multi phase dynamic postc ontrast imaging was performed. No oral contrast was administered. Coronal and sagittal reformatted i mages were obtained from the axial source images. Images were reviewed on a high-resolution PACS wor kstation. The total exam CTDI equals 20.05 x3 +20.04 mGy and the total exam DLP equals 3043.63 mGy- cm. There is beam-hardening artifact arising from the patient's arms by her side projected over the abdomen which limits evaluation. One or more of the following dose reduction techniques were used: - Automated exposure control. - Adjustment of the mA and/or kV according to patient size. - Use of iterative reconstruction technique. COMPARISON: 09/19/2016 FINDINGS: Evaluation of the lung bases demonstrates bibasilar atelectasis and small pleural effusions left gre ater than right. There are multiple bilateral lung nodules with the largest 2.4 cm a in the right lo wer lobe laterally suspicious for metastases. Abdomen: The liver has a nodular contour suggestive of cirrhosis. There is a poorly defined heteroge neous area within the posterior segment of the right lobe of the liver measuring approximately 6.5 x 8.9 cm. There is no dilatation of the biliary tree. The gallbladder is not distended. Multiple gall stones are identified. There is recanalization of the periumbilical vein and multiple collateral ves sels within the upper abdomen. There is splenomegaly with the transverse oblique length of the splee n 18 cm. The pancreas and is unremarkable. No adrenal mass is seen. There is bilateral renal cortic al thinning greater in the right kidney. There is no focal renal mass, hydronephrosis or hydrourete r. There is no retroperitoneal adenopathy. The abdominal aorta is of normal caliber. An IVC filter i s present. There is a moderate left abdominal ventral hernia containing fat. There is no bowel obstruction or f ree air seen. There is no diverticulosis or diverticulitis. There is mild perihepatic free fluid. Last bcutaneous edema. Lumbar spondylosis. Spinal stenosis in lumbar spine. Degenerative changes at sac roiliac joints. Mixed density scattered bone lesions are seen suspicious for metastases. IMPRESSION: Cirrhotic liver with poorly defined heterogeneous area within the right lobe suspicious for neoplast ic disease, new compared with 04/16/2014. Multiple collateral vessels and splenomegaly compatible with portal venous hypertension. Bibasilar atelectasis and small pleural effusions. Multiple bilateral lung nodular densities suspici ous for metastases. Cholelithiasis. IVC filter. Bilateral renal cortical thinning greater in the right kidney. Moderate left abdominal ventral hernia containing fat. Mild perihepatic free fluid. Mixed density scattered bone lesion seen suspicious for metastases. RPTAT: HJES .Omi Chandra MD, MD Date Time Electronically viewed and signed by .Omi Chandra MD, MD on 09/23/2016 19:46 .S/
[2016-09-23 20:00] VITALS: BP 131/64; PULSE 80; RESP 20
[2016-09-23 20:40] VITALS: BP 131/64; RESP 18
[2016-09-24] MEDS: DEXTROSE 5%-0.45% NACL 1,000 ML IV SCH (00:40)
[2016-09-24] MEDS: ACCUCHECK AT 2AM (Patients on SS coverage) XX SCH (02:00)
[2016-09-24] MEDS: traMADol 50 MG TAB PO PRN ×2 (04:46→22:40)
[2016-09-24] MEDS: FUROSEMIDE 20 MG TAB PO SCH (05:01)
[2016-09-24] MEDS: INSULIN ASPART [NOVOLOG] 3 ML PEN SC SCH ×4 (08:00→21:00)
[2016-09-24] MEDS: CHLORHEXIDINE GLUCONATE 15 ML UD CUP MM SCH ×2 (09:15→22:34)
[2016-09-24] MEDS: OCULAR LUBRICANT 3.5 GM OPH OINT BOTH EYES SCH ×2 (09:15→22:35)
[2016-09-24] MEDS: FAMOTIDINE 20 MG TAB PO SCH ×2 (09:15→22:35)
[2016-09-24] MEDS: MULTIVITAMINS THERAPEUTIC TAB PO SCH (09:15)
[2016-09-24] MEDS: OXYBUTYNIN 5 MG TAB PO SCH ×2 (09:15→22:35)
[2016-09-24] MEDS: ASCORBIC ACID 500 MG TAB PO SCH (09:15)
[2016-09-24] MEDS: ESCITALOPRAM 10 MG TAB PO SCH (09:18)
[2016-09-24] MEDS: GABAPENTIN 100 MG CAP PO SCH (09:22)
[2016-09-24] MEDS: BENAZEPRIL 10 MG TAB PO SCH (09:22)
[2016-09-24] MEDS: APIXABAN 5 MG TABLET PO SCH ×2 (09:23→22:36)
[2016-09-24] MEDS: ZINC SULFATE 220 MG CAP PO SCH (09:24)
[2016-09-24] MEDS: MUPIROCIN 2% 22 GM OINT TOP SCH ×2 (09:30→22:41)
[2016-09-24] MEDS: NYSTATIN 30 GM POWDER BTL TOP SCH ×2 (09:30→22:41)
[2016-09-24 09:34] LABS: INR 2.6; PROTIME 28.2 Sec (12.2-14.2); PT RATIO 2.2
--- NOTE | 2016-09-24 13:55 | PN ---
Date/Time of Note Date/Time of Note DATE: 09/24/16 TIME: 13:53 Assessment/Plan VTE Prophylaxis VTE Prophylaxis Intervention: SCD's, other (pt hs IVC filter ) Lines/Catheters IV Catheter Type (from [facility]): Peripheral IV Urinary Cath still in place: No Assessment/Plan Assessment/Plan # Liver lesion -given cirrhosis we are concerned for HCC will possibly need liver biopsy as per H&O plan #Pancytopenia #h/o multiple DVT s/p IVC filter -LE ultrasounds confirms RLE DVT, on xarelto # question on bone mets - as per H&O and radiology converstion- it does not look like mets Subjective 24 Hr Interval Summary Free Text/Dictation Bp stable,afebrile, Exam/Review of Systems Vital Signs Vitals Vital Signs Date Time Temp Pulse Resp B/P Pulse Ox O2 Delivery O2 Flow Rate FiO2 09/24/16 00:45 99 Aerosol 5.0 28 T Tube 09/23/16 21:50 80 20 09/23/16 20:40 98.1 131/64 Intake and Output 09/23/16 09/23/16 09/24/16 15:00 23:00 07:00 Intake Total 840 ml 560 ml Balance 840 ml 560 ml Exam Neck: supple Respiratory: clear to auscultation Cardiovascular: regular rate and rhythm Gastrointestinal: soft Results Result Diagram: 09/21/1651609/21/1617 Results 24 hrs Laboratory Tests Test 09/23/16 16:25 09/23/16 22:25 09/24/16 08:26 09/24/16 08:39 Bedside Glucose 161 99 119 INR International Normalized Ratio 2.60 Prothrombin Time 28.2 H Prothrombin Time Ratio 2.2 Test 09/24/16 12:05 Bedside Glucose 113 Medications Medications Current Medications Apixaban (Eliquis) 5 mg BID PO Last administered on 09/24/16 09:23; Admin Dose 5 MG; Start 09/20/16 at 09:00 Eye Lubricant (Akwa Oint) 1 applic BID BOTH EYES Last administered on 09/24/16 09:15; Admin Dose 1 APPLIC; Start 09/20/16 at 09:00 Ascorbic Acid (Vitamin C) 500 mg DAILY PO Last administered on 09/24/16 09:15; Admin Dose 500 MG; Start 09/20/16 at 09:00 Benazepril HCl (Lotensin) 10 mg DAILY PO Last administered on 09/24/16 09:22; Admin Dose 10 MG; Start 09/20/16 at 09:00 Bisacodyl (Dulcolax Supp) 10 mg Q24H PRN [place] PRN; Start 09/19/16 at 23:30 Chlorhexidine Gluconate (Peridex) 15 ml Q12 MM Last administered on 09/24/16 09 :15; Admin Dose 15 ML; Start 09/20/16 at 09:00 Escitalopram Oxalate (Lexapro) 5 mg DAILY PO Last administered on 09/24/16 09: 18; Admin Dose 5 MG; Start 09/20/16 at 09:00 Furosemide (Lasix) 20 mg DAILY@06 PO Last administered on 09/24/16 05:01; Admin Dose 20 MG; Start 09/20/16 at 06:00 Gabapentin (Neurontin) 100 mg DAILY PO Last administered on 09/24/16 09:22; Admin Dose 100 MG; Start 09/20/16 at 09:00 Magnesium Hydroxide (Milk Of Mag) 30 ml Q24H PRN PO PRN; Start 09/19/16 at 23:30 Multivitamins Therapeutic (Theragran) 1 tab DAILY PO Last administered on 09:15; Admin Dose 1 TAB; Start 09/20/16 at 09:00 Oxybutynin Chloride (Ditropan) 5 mg BID PO Last administered on 09/24/16 09:15 ; Admin Dose 5 MG; Start 09/20/16 at 09:00 Polyethylene Glycol (Miralax) 17 gm DAILY PRN PO PRN Last administered on 05:23; Admin Dose 17 GM; Start 09/19/16 at 23:30 Tramadol HCl (Ultram) 50 mg TID PRN PO PAIN Last administered on 09/24/16 04:46 ; Admin Dose 50 MG; Start 09/19/16 at 23:30 Zinc Sulfate (Zinc Sulfate) 220 mg DAILY PO Last administered on 09/24/16 09:24 ; Admin Dose 220 MG; Start 09/20/16 at 09:00 Diphenhydramine HCl 50 mg 50 mg DAILY PRN PO ITCHING; Start 09/19/16 at 23:30 Dextrose/Sodium Chloride (D5-1/2ns) 1,000 ml @ 40 mls/hr Q24H IV Last administered on 09/24/16 00:40; Admin Dose 40 MLS/HR; Start 09/19/16 at 23:16 Ondansetron HCl (Zofran Inj) 4 mg Q4H PRN IV NAUSEA AND/OR VOMITING Last administered on 09/20/16 06:20; Admin Dose 4 MG; Start 09/19/16 at 23:30 Hydromorphone HCl (Dilaudid) 0.5 mg Q4H PRN IV SEVERE PAIN LEVEL 7-10; Start at 23:30 Diagnostic Test (Pha) (Accucheck) 1 ea 02 XX Last administered on 09/22/16 02: 17; Admin Dose 1 EA; Start 09/20/16 at 02:00 Miscellaneous Information 1 ea NOTE XX ; Start 09/19/16 at 23:45 Glucose (Glutose) 15 gm Q15M PRN PO DECREASED GLUCOSE; Start 09/19/16 at 23:45 Glucose (Glutose) 22.5 gm Q15M PRN PO DECREASED GLUCOSE; Start 09/19/16 at 23:45 Dextrose (D50w Syringe) 25 ml Q15M PRN IV DECREASED GLUCOSE; Start 09/19/16 at 23:45 Dextrose (D50w Syringe) 50 ml Q15M PRN IV DECREASED GLUCOSE; Start 09/19/16 at 23:45 Glucagon (Glucagen) 1 mg Q15M PRN IM DECREASED GLUCOSE; Start 09/19/16 at 23:45 Glucose (Glutose) 15 gm Q15M PRN BUCCAL DECREASED GLUCOSE; Start 09/19/16 at 23: 45 Mupirocin (Bactroban) 1 applic BID TOP Last administered on 09/24/16 09:30; Admin Dose 1 APPLIC; Start 09/21/16 at 12:00 Famotidine (Pepcid) 20 mg BID PO Last administered on 09/24/16 09:15; Admin Dose 20 MG; Start 09/21/16 at 21:00 Nystatin (Nystatin Powder) 1 applic BID TOP Last administered on 09/24/16 09:30 ; Admin Dose 1 APPLIC; Start 09/22/16 at 21:00 JAMES WELCH MD Sep 24, 2016 13:55
--- NOTE | 2016-09-24 14:59 | CONS ---
Date/Time of Note Date/Time of Note DATE: 09/24/16 TIME: 14:55 Assessment/Plan Assessment/Plan Chief Complaint/Hosp Course IMPRESSION: 1. Abdominal pain. 2. Cirrhosis of liver. 3. Morbid obesity. 4. Possible liver mass, rule out hepatocellular cancer. 5. Chronic obstructive pulmonary disease. 6. Deep venous thrombosis in the lower extremities. 7. Depression. 8. Diabetes mellitus. 9. Cirrhosis of liver. Plan consider liver biopsy per heme/onc f/u AFP Problems: Consultation Date/Type/Reason Admit Date/Time Sep 21, 2016 at 10:00 Initial Consult Date 09/21/16 Type of Consultation: GI Referring Provider: ANGELICA ALTAMIRANO MD 24 HR Interval Summary Free Text/Dictation no n/v, no abd pain. Exam/Review of Systems Vital Signs Vitals Vital Signs Date Time Temp Pulse Resp B/P Pulse Ox O2 Delivery O2 Flow Rate FiO2 09/24/16 00:45 99 Aerosol 5.0 28 T Tube 09/23/16 21:50 80 20 09/23/16 20:40 98.1 131/64 Intake and Output 09/23/16 09/23/16 09/24/16 15:00 23:00 07:00 Intake Total 840 ml 560 ml Balance 840 ml 560 ml Exam Head: atraumatic, normocephalic Eyes: EOMI, nl conjunctiva, nl lids, nl sclera ENMT: mucosa pink and moist, nl external ears & nose, nl lips & teeth, nl nasal mucosa & septum Neck: non-tender, supple Respiratory: clear to auscultation, normal air movement Cardiovascular: nl pulses, regular rate and rhythm Gastrointestinal: bowel sounds, soft Results Result Diagram: 09/21/1617 09/21/16516 Results 24 hrs Laboratory Tests Test 09/23/16 16:25 09/23/16 22:25 09/24/16 08:26 09/24/16 08:39 Bedside Glucose 161 99 119 INR International Normalized Ratio 2.60 Prothrombin Time 28.2 H Prothrombin Time Ratio 2.2 Test 09/24/16 12:05 Bedside Glucose 113 Medications Medications Current Medications Apixaban (Eliquis) 5 mg BID PO Last administered on 09/24/16t 09:23; Admin Dose 5 MG; Start 09/20/16 at 09:00 Eye Lubricant (Akwa Oint) 1 applic BID BOTH EYES Last administered on 09/24/16 09:15; Admin Dose 1 APPLIC; Start 09/20/16 at 09:00 Ascorbic Acid (Vitamin C) 500 mg DAILY PO Last administered on 09/24/16 09:15; Admin Dose 500 MG; Start 09/20/16 at 09:00 Benazepril HCl (Lotensin) 10 mg DAILY PO Last administered on 09/24/16 09:22; Admin Dose 10 MG; Start 09/20/16 at 09:00 Bisacodyl (Dulcolax Supp) 10 mg Q24H PRN [place] PRN; Start 09/19/16 at 23:30 Chlorhexidine Gluconate (Peridex) 15 ml Q12 MM Last administered on 09/24/16 09 :15; Admin Dose 15 ML; Start 09/20/16 at 09:00 Escitalopram Oxalate (Lexapro) 5 mg DAILY PO Last administered on 09/24/16 09: 18; Admin Dose 5 MG; Start 09/20/16 at 09:00 Furosemide (Lasix) 20 mg DAILY@06 PO Last administered on 09/24/16 05:01; Admin Dose 20 MG; Start 09/20/16 at 06:00 Gabapentin (Neurontin) 100 mg DAILY PO Last administered on 09/24/16 09:22; Admin Dose 100 MG; Start 09/20/16 at 09:00 Magnesium Hydroxide (Milk Of Mag) 30 ml Q24H PRN PO PRN; Start 09/19/16 at 23:30 Multivitamins Therapeutic (Theragran) 1 tab DAILY PO Last administered on 09:15; Admin Dose 1 TAB; Start 09/20/16 at 09:00 Oxybutynin Chloride (Ditropan) 5 mg BID PO Last administered on 09/24/16 09:15 ; Admin Dose 5 MG; Start 09/20/16 at 09:00 Polyethylene Glycol (Miralax) 17 gm DAILY PRN PO PRN Last administered on 05:23; Admin Dose 17 GM; Start 09/19/16 at 23:30 Tramadol HCl (Ultram) 50 mg TID PRN PO PAIN Last administered on 09/24/16 04:46 ; Admin Dose 50 MG; Start 09/19/16 at 23:30 Zinc Sulfate (Zinc Sulfate) 220 mg DAILY PO Last administered on 09/24/16 09:24 ; Admin Dose 220 MG; Start 09/20/16 at 09:00 Diphenhydramine HCl 50 mg 50 mg DAILY PRN PO ITCHING; Start 09/19/16 at 23:30 Dextrose/Sodium Chloride (D5-1/2ns) 1,000 ml @ 40 mls/hr Q24H IV Last administered on 09/24/16 00:40; Admin Dose 40 MLS/HR; Start 09/19/16 at 23:16 Ondansetron HCl (Zofran Inj) 4 mg Q4H PRN IV NAUSEA AND/OR VOMITING Last administered on 09/20/16 06:20; Admin Dose 4 MG; Start 09/19/16 at 23:30 Hydromorphone HCl (Dilaudid) 0.5 mg Q4H PRN IV SEVERE PAIN LEVEL 7-10; Start at 23:30 Diagnostic Test (Pha) (Accucheck) 1 ea 02 XX Last administered on 09/22/16 02: 17; Admin Dose 1 EA; Start 09/20/16 at 02:00 Miscellaneous Information 1 ea NOTE XX ; Start 09/19/16 at 23:45 Glucose (Glutose) 15 gm Q15M PRN PO DECREASED GLUCOSE; Start 09/19/16 at 23:45 Glucose (Glutose) 22.5 gm Q15M PRN PO DECREASED GLUCOSE; Start 09/19/16 at 23:45 Dextrose (D50w Syringe) 25 ml Q15M PRN IV DECREASED GLUCOSE; Start 09/19/16 at 23:45 Dextrose (D50w Syringe) 50 ml Q15M PRN IV DECREASED GLUCOSE; Start 09/19/16 at 23:45 Glucagon (Glucagen) 1 mg Q15M PRN IM DECREASED GLUCOSE; Start 09/19/16 at 23:45 Glucose (Glutose) 15 gm Q15M PRN BUCCAL DECREASED GLUCOSE; Start 09/19/16 at 23: 45 Mupirocin (Bactroban) 1 applic BID TOP Last administered on 09/24/16 09:30; Admin Dose 1 APPLIC; Start 09/21/16 at 12:00 Famotidine (Pepcid) 20 mg BID PO Last administered on 09/24/16 09:15; Admin Dose 20 MG; Start 09/21/16 at 21:00 Nystatin (Nystatin Powder) 1 applic BID TOP Last administered on 09/24/16 09:30 ; Admin Dose 1 APPLIC; Start 09/22/16 at 21:00 MEME DURHAM MD Sep 24, 2016 14:58
[2016-09-24 19:59] VITALS: BP 124/63; RESP 24
[2016-09-24 20:00] VITALS: BP 124/63; PULSE 91; RESP 20
[2016-09-24] MEDS: MAGNESIUM HYDROXIDE 30ML CUP PO PRN (22:39)
[2016-09-25] MEDS: ACCUCHECK AT 2AM (Patients on SS coverage) XX SCH (02:00)
[2016-09-25] MEDS: DEXTROSE 5%-0.45% NACL 1,000 ML IV SCH ×2 (03:39→23:16)
[2016-09-25] MEDS: FUROSEMIDE 20 MG TAB PO SCH (05:43)
[2016-09-25 07:59] VITALS: BP 115/56; RESP 18
[2016-09-25] MEDS: INSULIN ASPART [NOVOLOG] 3 ML PEN SC SCH ×4 (08:00→21:00)
[2016-09-25] MEDS: CHLORHEXIDINE GLUCONATE 15 ML UD CUP MM SCH ×2 (09:00→21:37)
[2016-09-25] MEDS: OCULAR LUBRICANT 3.5 GM OPH OINT BOTH EYES SCH ×2 (09:00→21:38)
[2016-09-25] MEDS: APIXABAN 5 MG TABLET PO SCH ×2 (10:05→21:37)
[2016-09-25] MEDS: ESCITALOPRAM 10 MG TAB PO SCH (10:05)
[2016-09-25] MEDS: BENAZEPRIL 10 MG TAB PO SCH (10:07)
[2016-09-25] MEDS: MULTIVITAMINS THERAPEUTIC TAB PO SCH (10:08)
[2016-09-25] MEDS: ASCORBIC ACID 500 MG TAB PO SCH (10:08)
[2016-09-25] MEDS: ZINC SULFATE 220 MG CAP PO SCH (10:08)
[2016-09-25] MEDS: OXYBUTYNIN 5 MG TAB PO SCH ×2 (10:08→21:37)
[2016-09-25] MEDS: GABAPENTIN 100 MG CAP PO SCH (10:10)
[2016-09-25] MEDS: FAMOTIDINE 20 MG TAB PO SCH ×2 (10:13→21:37)
[2016-09-25] MEDS: MUPIROCIN 2% 22 GM OINT TOP SCH ×2 (10:23→21:37)
[2016-09-25] MEDS: NYSTATIN 30 GM POWDER BTL TOP SCH ×2 (10:23→21:38)
--- NOTE | 2016-09-25 12:59 | PN ---
Date/Time of Note Date/Time of Note DATE: 09/25/16 TIME: 12:55 Assessment/Plan VTE Prophylaxis VTE Prophylaxis Intervention: SCD's Lines/Catheters IV Catheter Type (from Nrs): Peripheral IV Urinary Cath still in place: No Assessment/Plan Assessment/Plan # Liver lesion -given cirrhosis- concerned for HCC will possibly need liver biopsy as per H&O plan #Pancytopenia #h/o multiple DVT s/p IVC filter -LE ultrasounds confirms RLE DVT, on xarelto # question on bone mets - as per H&O and radiology converstion- it does not look like mets IVF< pain control H & O following AFP sent out labs- still pending Exam/Review of Systems Vital Signs Vitals Vital Signs Date Time Temp Pulse Resp B/P Pulse Ox O2 Delivery O2 Flow Rate FiO2 09/25/16 07:59 97.9 89 18 115/56 92 09/24/16 23:21 5.0 28 09/24/16 20:00 T Tube Intake and Output 09/24/16 09/24/16 09/25/16 15:00 23:00 07:00 Intake Total 700 ml 550 ml Balance 700 ml 550 ml Results Result Diagram: 09/21/1651609/21/16516 Results 24 hrs Laboratory Tests Test 09/24/16 17:33 09/24/16 22:46 09/25/16 08:04 09/25/16 12:04 Bedside Glucose 159 116 135 164 Medications Medications Current Medications Apixaban (Eliquis) 5 mg BID PO Last administered on 09/25/16 10:05; Admin Dose 5 MG; Start 09/20/16 at 09:00 Eye Lubricant (Akwa Oint) 1 applic BID BOTH EYES Last administered on 09/25/16 09:00; Admin Dose 1 APPLIC; Start 09/20/16 at 09:00 Ascorbic Acid (Vitamin C) 500 mg DAILY PO Last administered on 09/25/16 10:08; Admin Dose 500 MG; Start 09/20/16 at 09:00 Benazepril HCl (Lotensin) 10 mg DAILY PO Last administered on 09/25/16 10:07; Admin Dose 10 MG; Start 09/20/16 at 09:00 Bisacodyl (Dulcolax Supp) 10 mg Q24H PRN [place] PRN; Start 09/19/16 at 23:30 Chlorhexidine Gluconate (Peridex) 15 ml Q12 MM Last administered on 09/25/16 09 :00; Admin Dose 15 ML; Start 09/20/16 at 09:00 Escitalopram Oxalate (Lexapro) 5 mg DAILY PO Last administered on 09/25/16 10: 05; Admin Dose 5 MG; Start 09/20/16 at 09:00 Furosemide (Lasix) 20 mg DAILY@06 PO Last administered on 09/25/16 05:43; Admin Dose 20 MG; Start 09/20/16 at 06:00 Gabapentin (Neurontin) 100 mg DAILY PO Last administered on 09/25/16 10:10; Admin Dose 100 MG; Start 09/20/16 at 09:00 Magnesium Hydroxide (Milk Of Mag) 30 ml Q24H PRN PO PRN Last administered on 22:39; Admin Dose 30 ML; Start 09/19/16 at 23:30 Multivitamins Therapeutic (Theragran) 1 tab DAILY PO Last administered on 10:08; Admin Dose 1 TAB; Start 09/20/16 at 09:00 Oxybutynin Chloride (Ditropan) 5 mg BID PO Last administered on 09/25/16 10:08 ; Admin Dose 5 MG; Start 09/20/16 at 09:00 Polyethylene Glycol (Miralax) 17 gm DAILY PRN PO PRN Last administered on 05:23; Admin Dose 17 GM; Start 09/19/16 at 23:30 Tramadol HCl (Ultram) 50 mg TID PRN PO PAIN Last administered on 09/24/16 22:40 ; Admin Dose 50 MG; Start 09/19/16 at 23:30 Zinc Sulfate (Zinc Sulfate) 220 mg DAILY PO Last administered on 09/25/16 10:08 ; Admin Dose 220 MG; Start 09/20/16 at 09:00 Diphenhydramine HCl 50 mg 50 mg DAILY PRN PO ITCHING; Start 09/19/16 at 23:30 Dextrose/Sodium Chloride (D5-1/2ns) 1,000 ml @ 40 mls/hr Q24H IV Last administered on 09/25/16 03:39; Admin Dose 40 MLS/HR; Start 09/19/16 at 23:16 Ondansetron HCl (Zofran Inj) 4 mg Q4H PRN IV NAUSEA AND/OR VOMITING Last administered on 09/20/16 06:20; Admin Dose 4 MG; Start 09/19/16 at 23:30 Hydromorphone HCl (Dilaudid) 0.5 mg Q4H PRN IV SEVERE PAIN LEVEL 7-10; Start at 23:30 Diagnostic Test (Pha) (Accucheck) 1 ea 02 XX Last administered on 09/22/16 02: 17; Admin Dose 1 EA; Start 09/20/16 at 02:00 Miscellaneous Information 1 ea NOTE XX ; Start 09/19/16 at 23:45 Glucose (Glutose) 15 gm Q15M PRN PO DECREASED GLUCOSE; Start 09/19/16 at 23:45 Glucose (Glutose) 22.5 gm Q15M PRN PO DECREASED GLUCOSE; Start 09/19/16 at 23:45 Dextrose (D50w Syringe) 25 ml Q15M PRN IV DECREASED GLUCOSE; Start 09/19/16 at 23:45 Dextrose (D50w Syringe) 50 ml Q15M PRN IV DECREASED GLUCOSE; Start 09/19/16 at 23:45 Glucagon (Glucagen) 1 mg Q15M PRN IM DECREASED GLUCOSE; Start 09/19/16 at 23:45 Glucose (Glutose) 15 gm Q15M PRN BUCCAL DECREASED GLUCOSE; Start 09/19/16 at 23: 45 Mupirocin (Bactroban) 1 applic BID TOP Last administered on 09/25/16 10:23; Admin Dose 1 APPLIC; Start 09/21/16 at 12:00 Famotidine (Pepcid) 20 mg BID PO Last administered on 09/25/16 10:13; Admin Dose 20 MG; Start 09/21/16 at 21:00 Nystatin (Nystatin Powder) 1 applic BID TOP Last administered on 09/25/16 10:23 ; Admin Dose 1 APPLIC; Start 09/22/16 at 21:00 JAMES WELCH MD Sep 25, 2016 12:59
--- NOTE | 2016-09-25 13:22 | CONS ---
Date/Time of Note Date/Time of Note DATE: 09/25/16 TIME: 13:20 Assessment/Plan Assessment/Plan Chief Complaint/Hosp Course IMPRESSION: 1. Abdominal pain. 2. Cirrhosis of liver. 3. Morbid obesity. 4. Possible liver mass, rule out hepatocellular cancer. 5. Chronic obstructive pulmonary disease. 6. Deep venous thrombosis in the lower extremities. 7. Depression. 8. Diabetes mellitus. 9. Cirrhosis of liver. Plan consider liver biopsy per heme/onc f/u AFP (still pending) Dr. Hurtado to resume care tomorrow Problems: Consultation Date/Type/Reason Admit Date/Time Sep 21, 2016 at 10:00 Initial Consult Date 09/21/16 Type of Consultation: GI Referring Provider: ANGELICA ALTAMIRANO MD 24 HR Interval Summary Free Text/Dictation +cough, no n/v, Exam/Review of Systems Vital Signs Vitals Vital Signs Date Time Temp Pulse Resp B/P Pulse Ox O2 Delivery O2 Flow Rate FiO2 09/25/16 07:59 97.9 89 18 115/56 92 09/24/16 23:21 5.0 28 09/24/16 20:00 T Tube Intake and Output 09/24/16 09/24/16 09/25/16 15:00 23:00 07:00 Intake Total 700 ml 550 ml Balance 700 ml 550 ml Exam Constitutional: alert, oriented, well developed Head: atraumatic, normocephalic Eyes: EOMI, nl conjunctiva, nl lids, nl sclera ENMT: mucosa pink and moist, nl external ears & nose, nl lips & teeth, nl nasal mucosa & septum Neck: non-tender, supple Respiratory: clear to auscultation, normal air movement Cardiovascular: nl pulses, regular rate and rhythm Gastrointestinal: bowel sounds, non-tender, soft Results Result Diagram: 09/21/16 0517 09/21/16 0517 Results 24 hrs Laboratory Tests Test 09/24/16 17:33 09/24/16 22:46 09/25/16 08:04 09/25/16 12:04 Bedside Glucose 159 116 135 164 Medications Medications Current Medications Apixaban (Eliquis) 5 mg BID PO Last administered on 09/25/16t 10:05; Admin Dose 5 MG; Start 09/20/16 at 09:00 Eye Lubricant (Akwa Oint) 1 applic BID BOTH EYES Last administered on 09/25/16 09:00; Admin Dose 1 APPLIC; Start 09/20/16 at 09:00 Ascorbic Acid (Vitamin C) 500 mg DAILY PO Last administered on 09/25/16 10:08; Admin Dose 500 MG; Start 09/20/16 at 09:00 Benazepril HCl (Lotensin) 10 mg DAILY PO Last administered on 09/25/16 10:07; Admin Dose 10 MG; Start 09/20/16 at 09:00 Bisacodyl (Dulcolax Supp) 10 mg Q24H PRN [place] PRN; Start 09/19/16 at 23:30 Chlorhexidine Gluconate (Peridex) 15 ml Q12 MM Last administered on 09/25/16 09 :00; Admin Dose 15 ML; Start 09/20/16 at 09:00 Escitalopram Oxalate (Lexapro) 5 mg DAILY PO Last administered on 09/25/16 10: 05; Admin Dose 5 MG; Start 09/20/16 at 09:00 Furosemide (Lasix) 20 mg DAILY@06 PO Last administered on 09/25/16 05:43; Admin Dose 20 MG; Start 09/20/16 at 06:00 Gabapentin (Neurontin) 100 mg DAILY PO Last administered on 09/25/16 10:10; Admin Dose 100 MG; Start 09/20/16 at 09:00 Magnesium Hydroxide (Milk Of Mag) 30 ml Q24H PRN PO PRN Last administered on 22:39; Admin Dose 30 ML; Start 09/19/16 at 23:30 Multivitamins Therapeutic (Theragran) 1 tab DAILY PO Last administered on 10:08; Admin Dose 1 TAB; Start 09/20/16 at 09:00 Oxybutynin Chloride (Ditropan) 5 mg BID PO Last administered on 09/25/16 10:08 ; Admin Dose 5 MG; Start 09/20/16 at 09:00 Polyethylene Glycol (Miralax) 17 gm DAILY PRN PO PRN Last administered on 05:23; Admin Dose 17 GM; Start 09/19/16 at 23:30 Tramadol HCl (Ultram) 50 mg TID PRN PO PAIN Last administered on 09/24/16 22:40 ; Admin Dose 50 MG; Start 09/19/16 at 23:30 Zinc Sulfate (Zinc Sulfate) 220 mg DAILY PO Last administered on 09/25/16 10:08 ; Admin Dose 220 MG; Start 09/20/16 at 09:00 Diphenhydramine HCl 50 mg 50 mg DAILY PRN PO ITCHING; Start 09/19/16 at 23:30 Dextrose/Sodium Chloride (D5-1/2ns) 1,000 ml @ 40 mls/hr Q24H IV Last administered on 09/25/16 03:39; Admin Dose 40 MLS/HR; Start 09/19/16 at 23:16 Ondansetron HCl (Zofran Inj) 4 mg Q4H PRN IV NAUSEA AND/OR VOMITING Last administered on 09/20/16 06:20; Admin Dose 4 MG; Start 09/19/16 at 23:30 Hydromorphone HCl (Dilaudid) 0.5 mg Q4H PRN IV SEVERE PAIN LEVEL 7-10; Start at 23:30 Diagnostic Test (Pha) (Accucheck) 1 ea 02 XX Last administered on 09/22/16 02: 17; Admin Dose 1 EA; Start 09/20/16 at 02:00 Miscellaneous Information 1 ea NOTE XX ; Start 09/19/16 at 23:45 Glucose (Glutose) 15 gm Q15M PRN PO DECREASED GLUCOSE; Start 09/19/16 at 23:45 Glucose (Glutose) 22.5 gm Q15M PRN PO DECREASED GLUCOSE; Start 09/19/16 at 23:45 Dextrose (D50w Syringe) 25 ml Q15M PRN IV DECREASED GLUCOSE; Start 09/19/16 at 23:45 Dextrose (D50w Syringe) 50 ml Q15M PRN IV DECREASED GLUCOSE; Start 09/19/16 at 23:45 Glucagon (Glucagen) 1 mg Q15M PRN IM DECREASED GLUCOSE; Start 09/19/16 at 23:45 Glucose (Glutose) 15 gm Q15M PRN BUCCAL DECREASED GLUCOSE; Start 09/19/16 at 23: 45 Mupirocin (Bactroban) 1 applic BID TOP Last administered on 09/25/16 10:23; Admin Dose 1 APPLIC; Start 09/21/16 at 12:00 Famotidine (Pepcid) 20 mg BID PO Last administered on 09/25/16 10:13; Admin Dose 20 MG; Start 09/21/16 at 21:00 Nystatin (Nystatin Powder) 1 applic BID TOP Last administered on 09/25/16 10:23 ; Admin Dose 1 APPLIC; Start 09/22/16 at 21:00 MEME DURHAM MD Sep 25, 2016 13:21
[2016-09-25 20:59] VITALS: BP 110/53; RESP 25
[2016-09-25] MEDS: ALBUTEROL 0.083% (NEB) 2.5 MG/3 ML AMP NEB PRN (22:22)
[2016-09-26] MEDS: ACCUCHECK AT 2AM (Patients on SS coverage) XX SCH ×2 (02:00→20:43)
[2016-09-26] MEDS: DEXTROSE 5%-0.45% NACL 1,000 ML IV SCH (05:03)
[2016-09-26] MEDS: FUROSEMIDE 20 MG TAB PO SCH (05:03)
[2016-09-26 05:51] LABS: HEMATOCRIT 31.2 % (37.0-47.0); HEMOGLOBIN 10.3 g/dl (12.0-16.0); MEAN CORPUSCULAR HEMOGLOBIN 29.1 pg (29.0-33.0); MEAN CORPUSCULAR HGB CONC 33.1 g/dl (32.0-37.0); MEAN PLATELET VOLUME 8.3 fl (7.4-10.4); PLATELET COUNT 72 10^3/UL (140-440); RED BLOOD COUNT 3.54 10^6/ul (4.20-5.40); RED CELL DISTRIBUTION WIDTH 22.4 % (11.5-14.5); UNCORRECTED WBC 3.8 10^3/ul (4.8-10.8); WHITE BLOOD COUNT 3.8 10^3/ul (4.8-10.8)
[2016-09-26 05:58] LABS: CONDITION 1; LH ANALYZER COMMENTS 1
[2016-09-26 06:00] LABS: INR 3.09; PROTIME 32.3 Sec (12.2-14.2); PT RATIO 2.5
[2016-09-26 06:17] LABS: POTASSIUM 3.9 mmol/L (3.5-5.1)
[2016-09-26 06:19] LABS: CREATININE 0.73 mg/dl (0.44-1.00)
[2016-09-26 06:20] LABS: CALCIUM 9.6 mg/dl (8.4-10.2)
[2016-09-26 07:36] VITALS: BP 128/60; RESP 20
[2016-09-26] MEDS: INSULIN ASPART [NOVOLOG] 3 ML PEN SC SCH ×4 (09:41→20:43)
[2016-09-26] MEDS: CHLORHEXIDINE GLUCONATE 15 ML UD CUP MM SCH ×2 (09:41→20:45)
[2016-09-26] MEDS: APIXABAN 5 MG TABLET PO SCH ×2 (09:41→20:45)
[2016-09-26] MEDS: FAMOTIDINE 20 MG TAB PO SCH ×2 (09:41→20:45)
[2016-09-26] MEDS: GABAPENTIN 100 MG CAP PO SCH (09:41)
[2016-09-26] MEDS: ESCITALOPRAM 10 MG TAB PO SCH (09:42)
[2016-09-26] MEDS: OXYBUTYNIN 5 MG TAB PO SCH ×2 (09:43→20:45)
[2016-09-26] MEDS: ASCORBIC ACID 500 MG TAB PO SCH (09:45)
[2016-09-26] MEDS: BENAZEPRIL 10 MG TAB PO SCH (09:45)
[2016-09-26] MEDS: MULTIVITAMINS THERAPEUTIC TAB PO SCH (09:46)
[2016-09-26] MEDS: ZINC SULFATE 220 MG CAP PO SCH (09:46)
[2016-09-26] MEDS: MUPIROCIN 2% 22 GM OINT TOP SCH ×2 (09:50→20:45)
[2016-09-26] MEDS: OCULAR LUBRICANT 3.5 GM OPH OINT BOTH EYES SCH ×2 (09:51→20:44)
[2016-09-26] MEDS: NYSTATIN 30 GM POWDER BTL TOP SCH ×2 (09:51→20:45)
[2016-09-26 12:28] LABS: EOSINOPHILS # 0.2 10^3/ul (0.0-0.5); LYMPHOCYTES # 1.2 10^3/ul (0.8-2.9); MONOCYTE # 0.3 10^3/ul (0.3-0.9)
--- NOTE | 2016-09-26 15:13 | CONS ---
Date/Time of Note Date/Time of Note DATE: 09/26/16 TIME: 15:07 Assessment/Plan Assessment/Plan Chief Complaint/Hosp Course 55 yo female with history or recurrent DVT who now presents with liver lesions and pancytopenia. Problems: Additional Assessment/Plan # Liver lesion -given cirrhosis we are concerned for HCC -follow AFP. given the results was outside of the reportable range the lab was sent to [facility] and will not results for 3-5 days per animal laboratory helper -triple phase CT abdomen does demonstrate lesion concerning for neoplasm -if not diagnostic will need to pursue liver biopsy -will consult Dr. Curtis at this time #Pancytopenia -likely secondary to liver cirrhosis -will monitor counts #h/o multiple DVT s/p IVC filter -LE ultrasounds confirms RLE DVT. spoke with radiologist who is not able to determine how old this clot is. -agree with vascular surgery consult to see if patient is candidate or thrombectomy -cont Xarelto for now as it is not clear that patient failed anticoagulation # question on bone mets -spoke with Abner Boateng, radiologist who stated there were infact NO BONE METS on CT. this was a misread and will be amended on the scan Approximately 40 min were spent at patient's bedside and in coordination of her care Consultation Date/Type/Reason Admit Date/Time Sep 21, 2016 at 10:00 Initial Consult Date 09/21/16 Type of Consultation: Hemeon Reason for Consultation liver mass Referring Provider: ANGELICA ALTAMIRANO MD 24 HR Interval Summary Free Text/Dictation no acute overnight events. CT abdomen done revealed a cirrhotic liver with poorly defined heterogeneous area within the right lobe suspicious for neoplastic disease, new compared with 04/16/2014. Exam/Review of Systems Vital Signs Vitals Vital Signs Date Time Temp Pulse Resp B/P Pulse Ox O2 Delivery O2 Flow Rate FiO2 09/26/16 08:00 6.0 09/26/16 07:36 97.7 88 20 128/60 92 09/26/16 05:59 Aerosol 28 T Tube Intake and Output 09/25/16 09/25/16 09/26/16 15:00 23:00 07:00 Intake Total 150 ml 100 ml Balance 150 ml 100 ml Exam Constitutional: alert, obese Psych: depression Head: normocephalic Eyes: nl conjunctiva ENMT: nl external ears & nose Neck: other (trach in place), supple Respiratory: clear to auscultation, normal air movement Cardiovascular: nl pulses, regular rate and rhythm Gastrointestinal: soft Musculoskeletal: nl extremities to inspection, nl gait and stance Extremities: normal pulses 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: PIT STEWARD II-XII intact Results Result Diagram: 09/26/16 0430 09/26/16 0430 Results 24 hrs Laboratory Tests Test 09/25/16 18:10 09/25/16 21:35 09/26/16 04:30 09/26/16 09:36 Bedside Glucose 104 120 151 Activated Partial Thromboplast Time 49.0 H Anion Gap 13 Basophils # 0.0 Basophils % 1.0 Blood Morphology Comment Blood Urea Nitrogen 14 Calcium Level 9.6 Carbon Dioxide Level 26 Chloride Level 106 Creatinine 0.73 Eosinophils # 0.2 Eosinophils % 6.0 Glucose Level 114 Hematocrit 31.2 L Hemoglobin 10.3 L INR International Normalized Ratio 3.09 Lymphocytes # 1.2 Lymphocytes % 31.0 Mean Corpuscular Hemoglobin 29.1 Mean Corpuscular Hemoglobin Concent 33.1 Mean Corpuscular Volume 88.0 Mean Platelet Volume 8.3 Monocytes # 0.3 Monocytes % 9.0 Neutrophils # 2.0 Neutrophils % 53.0 Platelet Count 72 L Potassium Level 3.9 Prothrombin Time 32.3 H Prothrombin Time Ratio 2.5 Red Blood Count 3.54 L Red Cell Distribution Width 22.4 H Sodium Level 141 White Blood Count 3.8 #L Test 09/26/16 12:32 Bedside Glucose 142 Medications Medications Current Medications Apixaban (Eliquis) 5 mg BID PO Last administered on 09/26/16 09:41; Admin Dose 5 MG; Start 09/20/16 at 09:00 Eye Lubricant (Akwa Oint) 1 applic BID BOTH EYES Last administered on 09/26/16 09:51; Admin Dose 1 APPLIC; Start 09/20/16 at 09:00 Ascorbic Acid (Vitamin C) 500 mg DAILY PO Last administered on 09/26/16 09:45; Admin Dose 500 MG; Start 09/20/16 at 09:00 Benazepril HCl (Lotensin) 10 mg DAILY PO Last administered on 09/26/16 09:45; Admin Dose 10 MG; Start 09/20/16 at 09:00 Bisacodyl (Dulcolax Supp) 10 mg Q24H PRN NM PRN; Start 09/19/16 at 23:30 Chlorhexidine Gluconate (Peridex) 15 ml Q12 MM Last administered on 09/26/16 09 :41; Admin Dose 15 ML; Start 09/20/16 at 09:00 Escitalopram Oxalate (Lexapro) 5 mg DAILY PO Last administered on 09/26/16 09: 42; Admin Dose 5 MG; Start 09/20/16 at 09:00 Furosemide (Lasix) 20 mg DAILY@06 PO Last administered on 09/26/16 05:03; Admin Dose 20 MG; Start 09/20/16 at 06:00 Gabapentin (Neurontin) 100 mg DAILY PO Last administered on 09/26/16 09:41; Admin Dose 100 MG; Start 09/20/16 at 09:00 Magnesium Hydroxide (Milk Of Mag) 30 ml Q24H PRN PO PRN Last administered on 22:39; Admin Dose 30 ML; Start 09/19/16 at 23:30 Multivitamins Therapeutic (Theragran) 1 tab DAILY PO Last administered on 09:46; Admin Dose 1 TAB; Start 09/20/16 at 09:00 Oxybutynin Chloride (Ditropan) 5 mg BID PO Last administered on 09/26/16 09:43 ; Admin Dose 5 MG; Start 09/20/16 at 09:00 Polyethylene Glycol (Miralax) 17 gm DAILY PRN PO PRN Last administered on 05:23; Admin Dose 17 GM; Start 09/19/16 at 23:30 Tramadol HCl (Ultram) 50 mg TID PRN PO PAIN Last administered on 09/24/16 22:40 ; Admin Dose 50 MG; Start 09/19/16 at 23:30 Zinc Sulfate (Zinc Sulfate) 220 mg DAILY PO Last administered on 09/26/16 09:46 ; Admin Dose 220 MG; Start 09/20/16 at 09:00 Diphenhydramine HCl 50 mg 50 mg DAILY PRN PO ITCHING; Start 09/19/16 at 23:30 Dextrose/Sodium Chloride (D5-1/2ns) 1,000 ml @ 40 mls/hr Q24H IV Last administered on 09/26/16 05:03; Admin Dose 40 MLS/HR; Start 09/19/16 at 23:16 Ondansetron HCl (Zofran Inj) 4 mg Q4H PRN IV NAUSEA AND/OR VOMITING Last administered on 09/20/16 06:20; Admin Dose 4 MG; Start 09/19/16 at 23:30 Hydromorphone HCl (Dilaudid) 0.5 mg Q4H PRN IV SEVERE PAIN LEVEL 7-10; Start at 23:30 Diagnostic Test (Pha) (Accucheck) 1 ea 02 XX Last administered on 09/22/16 02: 17; Admin Dose 1 EA; Start 09/20/16 at 02:00 Miscellaneous Information 1 ea NOTE XX ; Start 09/19/16 at 23:45 Glucose (Glutose) 15 gm Q15M PRN PO DECREASED GLUCOSE; Start 09/19/16 at 23:45 Glucose (Glutose) 22.5 gm Q15M PRN PO DECREASED GLUCOSE; Start 09/19/16 at 23:45 Dextrose (D50w Syringe) 25 ml Q15M PRN IV DECREASED GLUCOSE; Start 09/19/16 at 23:45 Dextrose (D50w Syringe) 50 ml Q15M PRN IV DECREASED GLUCOSE; Start 09/19/16 at 23:45 Glucagon (Glucagen) 1 mg Q15M PRN IM DECREASED GLUCOSE; Start 09/19/16 at 23:45 Glucose (Glutose) 15 gm Q15M PRN BUCCAL DECREASED GLUCOSE; Start 09/19/16 at 23: 45 Mupirocin (Bactroban) 1 applic BID TOP Last administered on 09/26/16 09:50; Admin Dose 1 APPLIC; Start 09/21/16 at 12:00 Famotidine (Pepcid) 20 mg BID PO Last administered on 09/26/16 09:41; Admin Dose 20 MG; Start 09/21/16 at 21:00 Nystatin (Nystatin Powder) 1 applic BID TOP Last administered on 09/26/16 09:51 ; Admin Dose 1 APPLIC; Start 09/22/16 at 21:00 ELTON LINCOLN M.D. Sep 26, 2016 15:13
--- NOTE | 2016-09-26 16:00 | PN ---
Date/Time of Note Date/Time of Note DATE: 09/26/16 TIME: 15:58 Assessment/Plan VTE Prophylaxis VTE Prophylaxis Intervention: other Lines/Catheters IV [facility] Peripheral IV Urinary Cath still in place: No Assessment/Plan Chief Complaint/Hosp Course IMPRESSION: 1. cirrhosis 2. Rule out malignancy. 3. Abnormal LFT. 4. Hypertension, diabetes mellitus, obesity, tracheostomy, COPD, DVT, history of inferior vena cava filter placement. 5 r/o liver tumor plan dr gilmore called per gi per dr fabio grimes called again Problems: Subjective 24 Hr Interval Summary ENT: No congestion Respiratory: No shortness of breath Cardiovascular: no complaints Exam/Review of Systems Vital Signs Vitals Vital Signs Date Time Temp Pulse Resp B/P Pulse Ox O2 Delivery O2 Flow Rate FiO2 09/26/16 08:00 6.0 09/26/16 07:36 97.7 88 20 128/60 92 09/26/16 05:59 Aerosol 28 T Tube Intake and Output 09/25/16 09/25/16 09/26/16 15:00 23:00 07:00 Intake Total 150 ml 100 ml Balance 150 ml 100 ml Exam Neck: supple Respiratory: clear to auscultation Cardiovascular: regular rate and rhythm Gastrointestinal: soft Musculoskeletal: nl extremities to inspection Extremities: normal pulses Results Result Diagram: 09/26/1642909/26/16 043 Results 24 hrs Laboratory Tests Test 09/25/16 18:10 09/25/16 21:35 09/26/16 04:30 09/26/16 09:36 Bedside Glucose 104 120 151 Activated Partial Thromboplast Time 49.0 H Anion Gap 13 Basophils # 0.0 Basophils % 1.0 Blood Morphology Comment Blood Urea Nitrogen 14 Calcium Level 9.6 Carbon Dioxide Level 26 Chloride Level 106 Creatinine 0.73 Eosinophils # 0.2 Eosinophils % 6.0 Glucose Level 114 Hematocrit 31.2 L Hemoglobin 10.3 L INR International Normalized Ratio 3.09 Lymphocytes # 1.2 Lymphocytes % 31.0 Mean Corpuscular Hemoglobin 29.1 Mean Corpuscular Hemoglobin Concent 33.1 Mean Corpuscular Volume 88.0 Mean Platelet Volume 8.3 Monocytes # 0.3 Monocytes % 9.0 Neutrophils # 2.0 Neutrophils % 53.0 Platelet Count 72 L Potassium Level 3.9 Prothrombin Time 32.3 H Prothrombin Time Ratio 2.5 Red Blood Count 3.54 L Red Cell Distribution Width 22.4 H Sodium Level 141 White Blood Count 3.8 #L Test 09/26/16 12:32 Bedside Glucose 142 Medications Medications Current Medications Apixaban (Eliquis) 5 mg BID PO Last administered on 09/26/16 09:41; Admin Dose 5 MG; Start 09/20/16 at 09:00 Eye Lubricant (Akwa Oint) 1 applic BID BOTH EYES Last administered on 09/26/16 09:51; Admin Dose 1 APPLIC; Start 09/20/16 at 09:00 Ascorbic Acid (Vitamin C) 500 mg DAILY PO Last administered on 09/26/16 09:45; Admin Dose 500 MG; Start 09/20/16 at 09:00 Benazepril HCl (Lotensin) 10 mg DAILY PO Last administered on 09/26/16 09:45; Admin Dose 10 MG; Start 09/20/16 at 09:00 Bisacodyl (Dulcolax Supp) 10 mg Q24H PRN HI PRN; Start 09/19/16 at 23:30 Chlorhexidine Gluconate (Peridex) 15 ml Q12 MM Last administered on 09/26/16 09 :41; Admin Dose 15 ML; Start 09/20/16 at 09:00 Escitalopram Oxalate (Lexapro) 5 mg DAILY PO Last administered on 09/26/16 09: 42; Admin Dose 5 MG; Start 09/20/16 at 09:00 Furosemide (Lasix) 20 mg DAILY@06 PO Last administered on 09/26/16 05:03; Admin Dose 20 MG; Start 09/20/16 at 06:00 Gabapentin (Neurontin) 100 mg DAILY PO Last administered on 09/26/16 09:41; Admin Dose 100 MG; Start 09/20/16 at 09:00 Magnesium Hydroxide (Milk Of Mag) 30 ml Q24H PRN PO PRN Last administered on 22:39; Admin Dose 30 ML; Start 09/19/16 at 23:30 Multivitamins Therapeutic (Theragran) 1 tab DAILY PO Last administered on 09:46; Admin Dose 1 TAB; Start 09/20/16 at 09:00 Oxybutynin Chloride (Ditropan) 5 mg BID PO Last administered on 09/26/16 09:43 ; Admin Dose 5 MG; Start 09/20/16 at 09:00 Polyethylene Glycol (Miralax) 17 gm DAILY PRN PO PRN Last administered on 05:23; Admin Dose 17 GM; Start 09/19/16 at 23:30 Tramadol HCl (Ultram) 50 mg TID PRN PO PAIN Last administered on 09/24/16 22:40 ; Admin Dose 50 MG; Start 09/19/16 at 23:30 Zinc Sulfate (Zinc Sulfate) 220 mg DAILY PO Last administered on 09/26/16 09:46 ; Admin Dose 220 MG; Start 09/20/16 at 09:00 Diphenhydramine HCl 50 mg 50 mg DAILY PRN PO ITCHING; Start 09/19/16 at 23:30 Dextrose/Sodium Chloride (D5-1/2ns) 1,000 ml @ 40 mls/hr Q24H IV Last administered on 09/26/16 05:03; Admin Dose 40 MLS/HR; Start 09/19/16 at 23:16 Ondansetron HCl (Zofran Inj) 4 mg Q4H PRN IV NAUSEA AND/OR VOMITING Last administered on 09/20/16 06:20; Admin Dose 4 MG; Start 09/19/16 at 23:30 Hydromorphone HCl (Dilaudid) 0.5 mg Q4H PRN IV SEVERE PAIN LEVEL 7-10; Start at 23:30 Diagnostic Test (Pha) (Accucheck) 1 ea 02 XX Last administered on 09/22/16 02: 17; Admin Dose 1 EA; Start 09/20/16 at 02:00 Miscellaneous Information 1 ea NOTE XX ; Start 09/19/16 at 23:45 Glucose (Glutose) 15 gm Q15M PRN PO DECREASED GLUCOSE; Start 09/19/16 at 23:45 Glucose (Glutose) 22.5 gm Q15M PRN PO DECREASED GLUCOSE; Start 09/19/16 at 23:45 Dextrose (D50w Syringe) 25 ml Q15M PRN IV DECREASED GLUCOSE; Start 09/19/16 at 23:45 Dextrose (D50w Syringe) 50 ml Q15M PRN IV DECREASED GLUCOSE; Start 09/19/16 at 23:45 Glucagon (Glucagen) 1 mg Q15M PRN IM DECREASED GLUCOSE; Start 09/19/16 at 23:45 Glucose (Glutose) 15 gm Q15M PRN BUCCAL DECREASED GLUCOSE; Start 09/19/16 at 23: 45 Mupirocin (Bactroban) 1 applic BID TOP Last administered on 09/26/16 09:50; Admin Dose 1 APPLIC; Start 09/21/16 at 12:00 Famotidine (Pepcid) 20 mg BID PO Last administered on 09/26/16 09:41; Admin Dose 20 MG; Start 09/21/16 at 21:00 Nystatin (Nystatin Powder) 1 applic BID TOP Last administered on 09/26/16 09:51 ; Admin Dose 1 APPLIC; Start 09/22/16 at 21:00 ANGELICA ALTAMIRANO MD Sep 26, 2016 16:00
--- NOTE | 2016-09-26 17:58 | CONS ---
Date/Time of Note Date/Time of Note DATE: 09/26/16 TIME: 17:57 Assessment/Plan Assessment/Plan Additional Assessment/Plan Additional Assessment/Plan IMPRESSION: 1. Abdominal pain. 2. Cirrhosis of liver. 3. Morbid obesity. 4. Possible liver mass, rule out hepatocellular cancer. 5. Chronic obstructive pulmonary disease. 6. Deep venous thrombosis in the lower extremities. 7. Depression. 8. Diabetes mellitus. 9. Cirrhosis of liver. Plan 3 phase study for liver pending. harmony feto protein pending repeat INR,pt.on xeralto preparing pt. for biopsy to see pt. Consultation Date/Type/Reason Admit Date/Time Sep 21, 2016 at 10:00 Initial Consult Date 09/21/16 Type of Consultation: Hemeon Referring Provider: ANGELICA ALTAMIRANO MD 24 HR Interval Summary Free Text/Dictation abdominal pain Exam/Review of Systems Vital Signs Vitals Vital Signs Date Time Temp Pulse Resp B/P Pulse Ox O2 Delivery O2 Flow Rate FiO2 09/26/16 16:00 5.0 28 09/26/16 16:00 80 26 Aerosol T Tube 09/26/16 07:36 97.7 128/60 92 Intake and Output 09/25/16 09/25/16 09/26/16 15:00 23:00 07:00 Intake Total 150 ml 100 ml Balance 150 ml 100 ml Exam Constitutional: alert, oriented, well developed Psych: nl mood/affect, no complaints Head: atraumatic, normocephalic Eyes: EOMI, PERRL, nl conjunctiva, nl lids, nl sclera ENMT: nl external ears & nose, nl lips & teeth, nl nasal mucosa & septum Neck: non-tender, supple Respiratory: clear to auscultation, normal air movement Cardiovascular: nl pulses, regular rate and rhythm Gastrointestinal: nl liver, spleen, non-tender, soft Musculoskeletal: nl extremities to inspection, nl gait and stance Extremities: normal pulses 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: PODIATRY PROFESSOR II-XII intact, nl mental status, nl speech, nl strength Skin: nl turgor, No rash or lesions Lymph: nl lymph nodes Results Result Diagram: 09/26/16 0430 09/26/16 0430 Results 24 hrs Laboratory Tests Test 09/25/16 18:10 09/25/16 21:35 09/26/16 04:30 09/26/16 09:36 Bedside Glucose 104 120 151 Activated Partial Thromboplast Time 49.0 H Anion Gap 13 Basophils # 0.0 Basophils % 1.0 Blood Morphology Comment Blood Urea Nitrogen 14 Calcium Level 9.6 Carbon Dioxide Level 26 Chloride Level 106 Creatinine 0.73 Eosinophils # 0.2 Eosinophils % 6.0 Glucose Level 114 Hematocrit 31.2 L Hemoglobin 10.3 L INR International Normalized Ratio 3.09 Lymphocytes # 1.2 Lymphocytes % 31.0 Mean Corpuscular Hemoglobin 29.1 Mean Corpuscular Hemoglobin Concent 33.1 Mean Corpuscular Volume 88.0 Mean Platelet Volume 8.3 Monocytes # 0.3 Monocytes % 9.0 Neutrophils # 2.0 Neutrophils % 53.0 Platelet Count 72 L Potassium Level 3.9 Prothrombin Time 32.3 H Prothrombin Time Ratio 2.5 Red Blood Count 3.54 L Red Cell Distribution Width 22.4 H Sodium Level 141 White Blood Count 3.8 #L Test 09/26/16 12:32 Bedside Glucose 142 Medications Medications Current Medications Apixaban (Eliquis) 5 mg BID PO Last administered on 09/26/16 09:41; Admin Dose 5 MG; Start 09/20/16 at 09:00 Eye Lubricant (Akwa Oint) 1 applic BID BOTH EYES Last administered on 09/26/16 09:51; Admin Dose 1 APPLIC; Start 09/20/16 at 09:00 Ascorbic Acid (Vitamin C) 500 mg DAILY PO Last administered on 09/26/16 09:45; Admin Dose 500 MG; Start 09/20/16 at 09:00 Benazepril HCl (Lotensin) 10 mg DAILY PO Last administered on 09/26/16 09:45; Admin Dose 10 MG; Start 09/20/16 at 09:00 Bisacodyl (Dulcolax Supp) 10 mg Q24H PRN [place] PRN; Start 09/19/16 at 23:30 Chlorhexidine Gluconate (Peridex) 15 ml Q12 MM Last administered on 09/26/16 09 :41; Admin Dose 15 ML; Start 09/20/16 at 09:00 Escitalopram Oxalate (Lexapro) 5 mg DAILY PO Last administered on 09/26/16 09: 42; Admin Dose 5 MG; Start 09/20/16 at 09:00 Furosemide (Lasix) 20 mg DAILY@06 PO Last administered on 09/26/16 05:03; Admin Dose 20 MG; Start 09/20/16 at 06:00 Gabapentin (Neurontin) 100 mg DAILY PO Last administered on 09/26/16 09:41; Admin Dose 100 MG; Start 09/20/16 at 09:00 Magnesium Hydroxide (Milk Of Mag) 30 ml Q24H PRN PO PRN Last administered on 22:39; Admin Dose 30 ML; Start 09/19/16 at 23:30 Multivitamins Therapeutic (Theragran) 1 tab DAILY PO Last administered on 09:46; Admin Dose 1 TAB; Start 09/20/16 at 09:00 Oxybutynin Chloride (Ditropan) 5 mg BID PO Last administered on 09/26/16 09:43 ; Admin Dose 5 MG; Start 09/20/16 at 09:00 Polyethylene Glycol (Miralax) 17 gm DAILY PRN PO PRN Last administered on 05:23; Admin Dose 17 GM; Start 09/19/16 at 23:30 Tramadol HCl (Ultram) 50 mg TID PRN PO PAIN Last administered on 09/24/16 22:40 ; Admin Dose 50 MG; Start 09/19/16 at 23:30 Zinc Sulfate (Zinc Sulfate) 220 mg DAILY PO Last administered on 09/26/16 09:46 ; Admin Dose 220 MG; Start 09/20/16 at 09:00 Diphenhydramine HCl 50 mg 50 mg DAILY PRN PO ITCHING; Start 09/19/16 at 23:30 Dextrose/Sodium Chloride (D5-1/2ns) 1,000 ml @ 40 mls/hr Q24H IV Last administered on 09/26/16 05:03; Admin Dose 40 MLS/HR; Start 09/19/16 at 23:16 Ondansetron HCl (Zofran Inj) 4 mg Q4H PRN IV NAUSEA AND/OR VOMITING Last administered on 09/20/16 06:20; Admin Dose 4 MG; Start 09/19/16 at 23:30 Hydromorphone HCl (Dilaudid) 0.5 mg Q4H PRN IV SEVERE PAIN LEVEL 7-10; Start at 23:30 Diagnostic Test (Pha) (Accucheck) 1 ea 02 XX Last administered on 09/22/16 02: 17; Admin Dose 1 EA; Start 09/20/16 at 02:00 Miscellaneous Information 1 ea NOTE XX ; Start 09/19/16 at 23:45 Glucose (Glutose) 15 gm Q15M PRN PO DECREASED GLUCOSE; Start 09/19/16 at 23:45 Glucose (Glutose) 22.5 gm Q15M PRN PO DECREASED GLUCOSE; Start 09/19/16 at 23:45 Dextrose (D50w Syringe) 25 ml Q15M PRN IV DECREASED GLUCOSE; Start 09/19/16 at 23:45 Dextrose (D50w Syringe) 50 ml Q15M PRN IV DECREASED GLUCOSE; Start 09/19/16 at 23:45 Glucagon (Glucagen) 1 mg Q15M PRN IM DECREASED GLUCOSE; Start 09/19/16 at 23:45 Glucose (Glutose) 15 gm Q15M PRN BUCCAL DECREASED GLUCOSE; Start 09/19/16 at 23: 45 Mupirocin (Bactroban) 1 applic BID TOP Last administered on 09/26/16 09:50; Admin Dose 1 APPLIC; Start 09/21/16 at 12:00 Famotidine (Pepcid) 20 mg BID PO Last administered on 09/26/16 09:41; Admin Dose 20 MG; Start 09/21/16 at 21:00 Nystatin (Nystatin Powder) 1 applic BID TOP Last administered on 09/26/16 09:51 ; Admin Dose 1 APPLIC; Start 09/22/16 at 21:00 MICHELL RAMIREZ MD Sep 26, 2016 17:58
[2016-09-26 20:11] VITALS: BP 127/62; RESP 18
[2016-09-26] MEDS: traMADol 50 MG TAB PO PRN (22:35)
[2016-09-27] MEDS: POLYETHYLENE GLYCOL 17 GM PACKET PO PRN (03:17)
[2016-09-27] MEDS: BISACODYL 10 MG SUPP PR PRN (05:44)
[2016-09-27] MEDS: FUROSEMIDE 20 MG TAB PO SCH (05:46)
[2016-09-27] MEDS: INSULIN ASPART [NOVOLOG] 3 ML PEN SC SCH ×4 (08:00→21:00)
[2016-09-27 09:00] VITALS: BP 124/66; RESP 20
--- NOTE | 2016-09-27 09:21 | CONS ---
Date/Time of Note Date/Time of Note DATE: 09/27/16 TIME: 09:20 Assessment/Plan Assessment/Plan Additional Assessment/Plan [facility] INITIAL INPATIENT CONSULTATION NOTE ASSESSMENT AND PLAN: A very-pleasant but unfortunate 55-year-old lady with a myriad of medical and surgical problems (see below), admitted for evaluation of abdominal pain that has shown presence of a liver mass in the setting of cirrhosis and thrombocytopenia, most likely hepatocellular carcinoma. I'll see to protein being evaluated. Likelihood of the mass being other disease processes extremely low and I recommended that we proceed with getting the patient set up for transarterial chemoembolization since the patient is not a surgical candidate given her marginally compensated cirrhosis and severe thrombocytopenia and splenomegaly along with engorged subcutaneous veins all indicating significant portal hypertension. Her chest mortality with an operative intervention for her liver is 100%. I also doubt that the patient will meaningfully tolerate systemic chemotherapy, but I will leave this discussion with the expert help of Dr. Lowry. With above assessment, I've recommended the followin. Continue medical management 2. Once the patient is discharged from the hospital, we will set her up for transarterial chemoembolization 3. Multi-dismay tumor board presentation Thank you very much for having me involved in the care of this very pleasant lady and I'm certain her wonderful family. I will continue to follow her from periphery with you and will be available to answer any questions at [phone]. TOTAL VISIT TIME: 45 minutes of which more than half was spent in [id number] discussion with the patient (no family present during my discussion with the patient), as well as coordination of care between multiple physicians and providers. Disclaimer: Inadvertent spelling and grammatical errors are likely due to EHR/ dictation software use and do not reflect on the quality of delivered patient care. Also, please note that the electronic time recorded on this node does not necessarily reflect the actual time of the visit. PLACE OF SERVICE: [facility], second Floor [facility] DATE OF CONSULTATION: 09/27/2016 HISTORY OF PRESENT ILLNESS: The patient but unfortunate 55-year-old lady with a myriad of medical and surgical problems (see below), admitted for evaluation of abdominal pain. Note that most of my information has come from careful review of the chart since the patient is with a tracheostomy and unable to speak very well. Patient has had known thrombocytopenia since before 2011. As far as I can tell, there has been no issues with alcohol intake and no history of hepatitis. She has had BMI of 40 since 2012 and has increased a BMI to [address] scan of the abdomen and pelvis showed a mass in the right lobe of the liver and comparison to prior images from 2013 showed that in retrospect, there was a small amount of abnormality in segment 8 of the liver which seems to have increased in size since then. She also has significant portal hypertension as shown by significant thrombocytopenia, enlarged spleen to almost the size of the liver, and presence of an core subcutaneous veins and chest wall veins. Patient herself indicated no significant abdominal pain during my visit. Unable to communicate better than that. PAST MEDICAL HISTORY 1. Diabetes 2. Hypertension 3. CVA 2, With complication of the respiratory failure requiring tracheostomy and percutaneous gastrostomy tube placement; per report, in a coma for 3 months 4. Known thrombocytopenia at least since before 2011 5. History of bronchitis 6. Depression 7. Anemia 8. History of overactive bladder 9. History of dysphagia 10. BMI 52.7 (previously 40 in 2011) 11. Polymicrobial bacteremia 2012 12. History of UTIs 13. COPD 14. History of DVT 15. Dyslipidemia 16. Chronic kidney disease PAST SURGICAL HISTORY 1. History of G-tube placement and removal 2. Tracheostomy with change 09/20/2011, hereby bleeding requiring admission to the hospital 3. History of cholecystectomy 4. History of ALLERGIES: Penicillin and acetaminophen MEDICATIONS 1. Albuterol. 2. Apixaban. 3. Ascorbic acid. 4. Benazepril. 5. Bisacodyl. 6. Chlorhexidine. 7. Benadryl. 8. Lexapro. 9. Nexium 10. Lasix. 11. Gabapentin. 12. Ibuprofen. 13. Insulin. 14. Lactobacillus. 15. Magnesium oxide. 16. Melatonin. 17. Multiple vitamin. 18. Zofran. 19. Oxybutynin. 20. MiraLax. 21. Ultram. 22. Zinc sulfate. SOCIAL HISTORY: The patient is single with 3 children and had 1 miscarriage. 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 Use home oxygen in the past. Has been taking care of at [facility]. Distant history of occasional tobacco abuse. - ETOH; - IVDU FAMILY HISTORY: Mother with uterine cancer and hypertension and diabetes. Father with prostate cancer and hypertension. There are no other significant medical, surgical or oncologic issues in the family as reported by the patient or reflected in the chart. REVIEW OF SYSTEMS: Unable to obtain any meaningful review of systems due to tracheostomy presence. PHYSICAL EXAMINATION GENERAL: The patient appears to be a very pleasant lady of descent lying in bed, appearing stated age, BMI 52.7 and otherwise in no acute distress. Tracheostomy in place VITAL SIGNS: AVSS (please also see below) HEENT: Normocephalic and atraumatic. Extraocular muscles and hearing are grossly intact bilaterally and symmetrically. Sclerae are nonicteric. Oral cavity is clear; oral mucosa appear to be pink and moist. Dentition: Or. NECK: Supple. There is no lymphadenopathy or JVD. There is no submental, submandibular or supraclavicular lymphadenopathy. CHEST: Rises symmetrically with each breath; patient is breathing comfortably. There are no audible wheezes, rales or rhonchi on the gross exam. HEART: Pulse is regular and palpable on the right wrist. Capillary refill is normal. Carotid pulses are palpable bilaterally and symmetrically in the neck. EXTREMITIES: Lower extremities contain no pitting edema around the ankles bilaterally and symmetrically. ABDOMEN: Abdomen is soft, nontender and nondistended. + evidence of ascites, organomegaly, caput medusae, engorged subcutaneous veins, and other abnormalities (nontender incisional ventral hernia). There are no peritoneal signs or guarding. SKIN: Appears to be pink and feels warm to touch. NEUROLOGIC: Awake, alert, and follows commands appropriately. LABORATORY DATA: See below IMAGING: See electronic chart. Please note that I've personally reviewed all pertinent available images and I agree in general with their overall reported findings. Consultation Date/Type/Reason Admit Date/Time Sep 21, 2016 at 10:00 Constitutional: no complaints Eyes: no complaints ENT: No congestion Respiratory: No shortness of breath Cardiovascular: no complaints Gastrointestinal: diarrhea Genitourinary: no complaints Musculoskeletal: bone/joint pain Skin: no complaints Neurologic: no complaints Psychological: nl mood/affect, no complaints Social History Alcohol Use: none Smoking Status: Unknown if ever smoked Drug Use: none Exam/Review of Systems Vital Signs Vitals Vital Signs Date Time Temp Pulse Resp B/P Pulse Ox O2 Delivery O2 Flow Rate FiO2 09/27/16 09:00 97.7 90 20 124/66 99 09/27/16 06:27 5.0 28 09/26/16 22:17 Aerosol T Tube Intake and Output 09/26/16 09/26/16 09/27/16 15:00 23:00 07:00 Intake Total 550 ml 350 ml Balance 550 ml 350 ml Results Result Diagram: 09/26/16 0430 09/26/16 0430 Results 24 hrs Laboratory Tests Test 09/26/16 09:36 09/26/16 12:32 09/26/16 18:31 09/26/16 20:42 Bedside Glucose 151 142 127 147 Test 09/27/16 08:58 Bedside Glucose 117 Medications Medications Current Medications Apixaban (Eliquis) 5 mg BID PO Last administered on 09/26/16 20:45; Admin Dose 5 MG; Start 09/20/16 at 09:00 Eye Lubricant (Akwa Oint) 1 applic BID BOTH EYES Last administered on 09/26/16 20:44; Admin Dose 1 APPLIC; Start 09/20/16 at 09:00 Ascorbic Acid (Vitamin C) 500 mg DAILY PO Last administered on 09/26/16 09:45; Admin Dose 500 MG; Start 09/20/16 at 09:00 Benazepril HCl (Lotensin) 10 mg DAILY PO Last administered on 09/26/16 09:45; Admin Dose 10 MG; Start 09/20/16 at 09:00 Bisacodyl (Dulcolax Supp) 10 mg Q24H PRN IN PRN Last administered on 09/27/16 05:44; Admin Dose 10 MG; Start 09/19/16 at 23:30 Chlorhexidine Gluconate (Peridex) 15 ml Q12 MM Last administered on 09/26/16 20 :45; Admin Dose 15 ML; Start 09/20/16 at 09:00 Escitalopram Oxalate (Lexapro) 5 mg DAILY PO Last administered on 09/26/16 09: 42; Admin Dose 5 MG; Start 09/20/16 at 09:00 Furosemide (Lasix) 20 mg DAILY@06 PO Last administered on 09/27/16 05:46; Admin Dose 20 MG; Start 09/20/16 at 06:00 Gabapentin (Neurontin) 100 mg DAILY PO Last administered on 09/26/16 09:41; Admin Dose 100 MG; Start 09/20/16 at 09:00 Magnesium Hydroxide (Milk Of Mag) 30 ml Q24H PRN PO PRN Last administered on 22:39; Admin Dose 30 ML; Start 09/19/16 at 23:30 Multivitamins Therapeutic (Theragran) 1 tab DAILY PO Last administered on 09:46; Admin Dose 1 TAB; Start 09/20/16 at 09:00 Oxybutynin Chloride (Ditropan) 5 mg BID PO Last administered on 09/26/16 20:45 ; Admin Dose 5 MG; Start 09/20/16 at 09:00 Polyethylene Glycol (Miralax) 17 gm DAILY PRN PO PRN Last administered on 03:17; Admin Dose 17 GM; Start 09/19/16 at 23:30 Tramadol HCl (Ultram) 50 mg TID PRN PO PAIN Last administered on 09/26/16 22:35 ; Admin Dose 50 MG; Start 09/19/16 at 23:30 Zinc Sulfate (Zinc Sulfate) 220 mg DAILY PO Last administered on 09/26/16 09:46 ; Admin Dose 220 MG; Start 09/20/16 at 09:00 Diphenhydramine HCl 50 mg 50 mg DAILY PRN PO ITCHING Last administered on 03:17; Admin Dose 50 MG; Start 09/19/16 at 23:30 Dextrose/Sodium Chloride (D5-1/2ns) 1,000 ml @ 40 mls/hr Q24H IV Last administered on 09/26/16 05:03; Admin Dose 40 MLS/HR; Start 09/19/16 at 23:16 Ondansetron HCl (Zofran Inj) 4 mg Q4H PRN IV NAUSEA AND/OR VOMITING Last administered on 09/20/16 06:20; Admin Dose 4 MG; Start 09/19/16 at 23:30 Hydromorphone HCl (Dilaudid) 0.5 mg Q4H PRN IV SEVERE PAIN LEVEL 7-10; Start at 23:30 Diagnostic Test (Pha) (Accucheck) 1 ea 02 XX Last administered on 09/22/16 02: 17; Admin Dose 1 EA; Start 09/20/16 at 02:00 Miscellaneous Information 1 ea NOTE XX ; Start 09/19/16 at 23:45 Glucose (Glutose) 15 gm Q15M PRN PO DECREASED GLUCOSE; Start 09/19/16 at 23:45 Glucose (Glutose) 22.5 gm Q15M PRN PO DECREASED GLUCOSE; Start 09/19/16 at 23:45 Dextrose (D50w Syringe) 25 ml Q15M PRN IV DECREASED GLUCOSE; Start 09/19/16 at 23:45 Dextrose (D50w Syringe) 50 ml Q15M PRN IV DECREASED GLUCOSE; Start 09/19/16 at 23:45 Glucagon (Glucagen) 1 mg Q15M PRN IM DECREASED GLUCOSE; Start 09/19/16 at 23:45 Glucose (Glutose) 15 gm Q15M PRN BUCCAL DECREASED GLUCOSE; Start 09/19/16 at 23: 45 Mupirocin (Bactroban) 1 applic BID TOP Last administered on 09/26/16 20:45; Admin Dose 1 APPLIC; Start 09/21/16 at 12:00 Famotidine (Pepcid) 20 mg BID PO Last administered on 09/26/16 20:45; Admin Dose 20 MG; Start 09/21/16 at 21:00 Nystatin (Nystatin Powder) 1 applic BID TOP Last administered on 09/26/16 20:45 ; Admin Dose 1 APPLIC; Start 09/22/16 at 21:00 MICHAEL MCKINNEY M.D. Sep 27, 2016 09:21
[2016-09-27] MEDS: OXYBUTYNIN 5 MG TAB PO SCH ×2 (09:38→21:44)
[2016-09-27] MEDS: ASCORBIC ACID 500 MG TAB PO SCH (09:38)
[2016-09-27] MEDS: ZINC SULFATE 220 MG CAP PO SCH (09:38)
[2016-09-27] MEDS: GABAPENTIN 100 MG CAP PO SCH (09:38)
[2016-09-27] MEDS: FAMOTIDINE 20 MG TAB PO SCH ×2 (09:38→21:44)
[2016-09-27] MEDS: ESCITALOPRAM 10 MG TAB PO SCH (09:38)
[2016-09-27] MEDS: CHLORHEXIDINE GLUCONATE 15 ML UD CUP MM SCH ×2 (09:38→21:44)
[2016-09-27] MEDS: APIXABAN 5 MG TABLET PO SCH ×2 (09:38→21:44)
[2016-09-27] MEDS: MULTIVITAMINS THERAPEUTIC TAB PO SCH (09:38)
[2016-09-27] MEDS: NYSTATIN 30 GM POWDER BTL TOP SCH ×2 (09:39→21:58)
[2016-09-27] MEDS: MUPIROCIN 2% 22 GM OINT TOP SCH ×2 (09:39→21:46)
[2016-09-27] MEDS: OCULAR LUBRICANT 3.5 GM OPH OINT BOTH EYES SCH ×2 (09:40→21:45)
[2016-09-27] MEDS: BENAZEPRIL 10 MG TAB PO SCH (09:40)
[2016-09-27] MEDS: DEXTROSE 5%-0.45% NACL 1,000 ML IV SCH (09:42)
--- NOTE | 2016-09-27 17:29 | PN ---
Date/Time of Note Date/Time of Note DATE: 09/27/16 TIME: 17:29 Assessment/Plan VTE Prophylaxis VTE Prophylaxis Intervention: other Lines/Catheters IV [facility] Peripheral IV Urinary Cath still in place: No Assessment/Plan Chief Complaint/Hosp Course IMPRESSION: 1. cirrhosis 2. Rule out malignancy. 3. Abnormal LFT. 4. Hypertension, diabetes mellitus, obesity, tracheostomy, COPD, DVT, history of inferior vena cava filter placement. 5 r/o liver tumor plan per dr gilmore per gi per dr fabio grimes called again Problems: Subjective 24 Hr Interval Summary Respiratory: no complaints Cardiovascular: no complaints Gastrointestinal: no complaints Exam/Review of Systems Vital Signs Vitals Vital Signs Date Time Temp Pulse Resp B/P Pulse Ox O2 Delivery O2 Flow Rate FiO2 09/27/16 13:37 79 20 96 Aerosol 5.0 28 T Tube 09/27/16 09:00 97.7 124/66 Intake and Output 09/26/16 09/26/16 09/27/16 15:00 23:00 07:00 Intake Total 550 ml 350 ml Balance 550 ml 350 ml Exam Neck: supple Respiratory: clear to auscultation Cardiovascular: regular rate and rhythm Gastrointestinal: soft Results Result Diagram: 09/26/16 0430 09/26/16 0430 Results 24 hrs Laboratory Tests Test 09/26/16 18:31 09/26/16 20:42 09/27/16 08:58 09/27/16 12:27 Bedside Glucose 127 147 117 102 Test 09/27/16 12:56 Lab Scanned Report REFERENCE LAB Medications Medications Current Medications Apixaban (Eliquis) 5 mg BID PO Last administered on 09/27/16 09:38; Admin Dose 5 MG; Start 09/20/16 at 09:00 Eye Lubricant (Akwa Oint) 1 applic BID BOTH EYES Last administered on 09:40; Admin Dose 1 APPLIC; Start 09/20/16 at 09:00 Ascorbic Acid (Vitamin C) 500 mg DAILY PO Last administered on 09/27/16 09:38 ; Admin Dose 500 MG; Start 09/20/16 at 09:00 Benazepril HCl (Lotensin) 10 mg DAILY PO Last administered on 09/27/16 09:40; Admin Dose 10 MG; Start 09/20/16 at 09:00 Bisacodyl (Dulcolax Supp) 10 mg Q24H PRN [place] PRN Last administered on 09/27/16 05:44; Admin Dose 10 MG; Start 09/19/16 at 23:30 Chlorhexidine Gluconate (Peridex) 15 ml Q12 MM Last administered on 09/27/16 09:38; Admin Dose 15 ML; Start 09/20/16 at 09:00 Escitalopram Oxalate (Lexapro) 5 mg DAILY PO Last administered on 09/27/16 09: 38; Admin Dose 5 MG; Start 09/20/16 at 09:00 Furosemide (Lasix) 20 mg DAILY@06 PO Last administered on 09/27/16 05:46; Admin Dose 20 MG; Start 09/20/16 at 06:00 Gabapentin (Neurontin) 100 mg DAILY PO Last administered on 09/27/16 09:38; Admin Dose 100 MG; Start 09/20/16 at 09:00 Magnesium Hydroxide (Milk Of Mag) 30 ml Q24H PRN PO PRN Last administered on 22:39; Admin Dose 30 ML; Start 09/19/16 at 23:30 Multivitamins Therapeutic (Theragran) 1 tab DAILY PO Last administered on 09:38; Admin Dose 1 TAB; Start 09/20/16 at 09:00 Oxybutynin Chloride (Ditropan) 5 mg BID PO Last administered on 09/27/16 09:38 ; Admin Dose 5 MG; Start 09/20/16 at 09:00 Polyethylene Glycol (Miralax) 17 gm DAILY PRN PO PRN Last administered on 03:17; Admin Dose 17 GM; Start 09/19/16 at 23:30 Tramadol HCl (Ultram) 50 mg TID PRN PO PAIN Last administered on 09/26/16 22:35 ; Admin Dose 50 MG; Start 09/19/16 at 23:30 Zinc Sulfate (Zinc Sulfate) 220 mg DAILY PO Last administered on 09/27/16 09: 38; Admin Dose 220 MG; Start 09/20/16 at 09:00 Diphenhydramine HCl 50 mg 50 mg DAILY PRN PO ITCHING Last administered on 03:17; Admin Dose 50 MG; Start 09/19/16 at 23:30 Dextrose/Sodium Chloride (D5-1/2ns) 1,000 ml @ 40 mls/hr Q24H IV Last administered on 09/27/16 09:42; Admin Dose 40 MLS/HR; Start 09/19/16 at 23:16 Ondansetron HCl (Zofran Inj) 4 mg Q4H PRN IV NAUSEA AND/OR VOMITING Last administered on 09/20/16 06:20; Admin Dose 4 MG; Start 09/19/16 at 23:30 Hydromorphone HCl (Dilaudid) 0.5 mg Q4H PRN IV SEVERE PAIN LEVEL 7-10; Start at 23:30 Diagnostic Test (Pha) (Accucheck) 1 ea 02 XX Last administered on 09/22/16 02: 17; Admin Dose 1 EA; Start 09/20/16 at 02:00 Miscellaneous Information 1 ea NOTE XX ; Start 09/19/16 at 23:45 Glucose (Glutose) 15 gm Q15M PRN PO DECREASED GLUCOSE; Start 09/19/16 at 23:45 Glucose (Glutose) 22.5 gm Q15M PRN PO DECREASED GLUCOSE; Start 09/19/16 at 23:45 Dextrose (D50w Syringe) 25 ml Q15M PRN IV DECREASED GLUCOSE; Start 09/19/16 at 23:45 Dextrose (D50w Syringe) 50 ml Q15M PRN IV DECREASED GLUCOSE; Start 09/19/16 at 23:45 Glucagon (Glucagen) 1 mg Q15M PRN IM DECREASED GLUCOSE; Start 09/19/16 at 23:45 Glucose (Glutose) 15 gm Q15M PRN BUCCAL DECREASED GLUCOSE; Start 09/19/16 at 23: 45 Mupirocin (Bactroban) 1 applic BID TOP Last administered on 09/27/16 09:39; Admin Dose 1 APPLIC; Start 09/21/16 at 12:00 Famotidine (Pepcid) 20 mg BID PO Last administered on 09/27/16 09:38; Admin Dose 20 MG; Start 09/21/16 at 21:00 Nystatin (Nystatin Powder) 1 applic BID TOP Last administered on 09/27/16 09: 39; Admin Dose 1 APPLIC; Start 09/22/16 at 21:00 ANGELICA ALTAMIRANO MD Sep 27, 2016 17:29
--- NOTE | 2016-09-27 18:12 | CONS ---
Date/Time of Note Date/Time of Note DATE: 09/27/16 TIME: 18:07 Assessment/Plan Assessment/Plan Additional Assessment/Plan Additional Assessment/Plan Additional Assessment/Plan IMPRESSION: 1. Abdominal pain. 2. Cirrhosis of liver. 3. Morbid obesity. 4. Possible liver mass, rule out hepatocellular cancer. 5. Chronic obstructive pulmonary disease. 6. Deep venous thrombosis in the lower extremities. 7. Depression. 8. Diabetes mellitus. 9. Cirrhosis of liver. Plan 3 phase study for liver ,consistent with Hepatocellular cancer. harmony feto protein pending ,pt.on Xarelto trans arterial chemoembolization as per Dr. Lowry Consultation Date/Type/Reason Admit Date/Time Sep 21, 2016 at 10:00 Initial Consult Date 09/21/16 [facility] Referring Provider: ANGELICA ALTAMIRANO MD 24 HR Interval Summary Free Text/Dictation abdominal pain Exam/Review of Systems Vital Signs Vitals Vital Signs Date Time Temp Pulse Resp B/P Pulse Ox O2 Delivery O2 Flow Rate FiO2 09/27/16 13:37 79 20 96 Aerosol 5.0 28 T Tube 09/27/16 09:00 97.7 124/66 Intake and Output 09/26/16 09/26/16 09/27/16 15:00 23:00 07:00 Intake Total 550 ml 350 ml Balance 550 ml 350 ml Exam Constitutional: alert, oriented, well developed Psych: nl mood/affect, no complaints Head: atraumatic, normocephalic Eyes: EOMI, PERRL, nl conjunctiva, nl lids, nl sclera ENMT: nl external ears & nose, nl lips & teeth, nl nasal mucosa & septum Neck: non-tender, supple Respiratory: clear to auscultation, normal air movement Cardiovascular: nl pulses, regular rate and rhythm Gastrointestinal: nl liver, spleen, non-tender, soft Musculoskeletal: nl extremities to inspection, nl gait and stance Extremities: normal pulses 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: INOCULATOR II-XII intact, nl mental status, nl speech, nl strength Skin: nl turgor, No rash or lesions Lymph: nl lymph nodes Results Result Diagram: 09/26/16 0430 09/26/16 0430 Results 24 hrs Laboratory Tests Test 09/26/16 18:31 09/26/16 20:42 09/27/16 08:58 09/27/16 12:27 Bedside Glucose 127 147 117 102 Test 09/27/16 12:56 Lab Scanned Report REFERENCE LAB Medications Medications Current Medications Apixaban (Eliquis) 5 mg BID PO Last administered on 09/27/16 09:38; Admin Dose 5 MG; Start 09/20/16 at 09:00 Eye Lubricant (Akwa Oint) 1 applic BID BOTH EYES Last administered on 09:40; Admin Dose 1 APPLIC; Start 09/20/16 at 09:00 Ascorbic Acid (Vitamin C) 500 mg DAILY PO Last administered on 09/27/16 09:38 ; Admin Dose 500 MG; Start 09/20/16 at 09:00 Benazepril HCl (Lotensin) 10 mg DAILY PO Last administered on 09/27/16 09:40; Admin Dose 10 MG; Start 09/20/16 at 09:00 Bisacodyl (Dulcolax Supp) 10 mg Q24H PRN [place] PRN Last administered on 09/27/16 05:44; Admin Dose 10 MG; Start 09/19/16 at 23:30 Chlorhexidine Gluconate (Peridex) 15 ml Q12 MM Last administered on 09/27/16 09:38; Admin Dose 15 ML; Start 09/20/16 at 09:00 Escitalopram Oxalate (Lexapro) 5 mg DAILY PO Last administered on 09/27/16 09: 38; Admin Dose 5 MG; Start 09/20/16 at 09:00 Furosemide (Lasix) 20 mg DAILY@06 PO Last administered on 09/27/16 05:46; Admin Dose 20 MG; Start 09/20/16 at 06:00 Gabapentin (Neurontin) 100 mg DAILY PO Last administered on 09/27/16 09:38; Admin Dose 100 MG; Start 09/20/16 at 09:00 Magnesium Hydroxide (Milk Of Mag) 30 ml Q24H PRN PO PRN Last administered on 22:39; Admin Dose 30 ML; Start 09/19/16 at 23:30 Multivitamins Therapeutic (Theragran) 1 tab DAILY PO Last administered on 09:38; Admin Dose 1 TAB; Start 09/20/16 at 09:00 Oxybutynin Chloride (Ditropan) 5 mg BID PO Last administered on 09/27/16 09:38 ; Admin Dose 5 MG; Start 09/20/16 at 09:00 Polyethylene Glycol (Miralax) 17 gm DAILY PRN PO PRN Last administered on 03:17; Admin Dose 17 GM; Start 09/19/16 at 23:30 Tramadol HCl (Ultram) 50 mg TID PRN PO PAIN Last administered on 09/26/16 22:35 ; Admin Dose 50 MG; Start 09/19/16 at 23:30 Zinc Sulfate (Zinc Sulfate) 220 mg DAILY PO Last administered on 09/27/16 09: 38; Admin Dose 220 MG; Start 09/20/16 at 09:00 Diphenhydramine HCl 50 mg 50 mg DAILY PRN PO ITCHING Last administered on 03:17; Admin Dose 50 MG; Start 09/19/16 at 23:30 Dextrose/Sodium Chloride (D5-1/2ns) 1,000 ml @ 40 mls/hr Q24H IV Last administered on 09/27/16 09:42; Admin Dose 40 MLS/HR; Start 09/19/16 at 23:16 Ondansetron HCl (Zofran Inj) 4 mg Q4H PRN IV NAUSEA AND/OR VOMITING Last administered on 09/20/16 06:20; Admin Dose 4 MG; Start 09/19/16 at 23:30 Hydromorphone HCl (Dilaudid) 0.5 mg Q4H PRN IV SEVERE PAIN LEVEL 7-10; Start at 23:30 Diagnostic Test (Pha) (Accucheck) 1 ea 02 XX Last administered on 09/22/16 02: 17; Admin Dose 1 EA; Start 09/20/16 at 02:00 Miscellaneous Information 1 ea NOTE XX ; Start 09/19/16 at 23:45 Glucose (Glutose) 15 gm Q15M PRN PO DECREASED GLUCOSE; Start 09/19/16 at 23:45 Glucose (Glutose) 22.5 gm Q15M PRN PO DECREASED GLUCOSE; Start 09/19/16 at 23:45 Dextrose (D50w Syringe) 25 ml Q15M PRN IV DECREASED GLUCOSE; Start 09/19/16 at 23:45 Dextrose (D50w Syringe) 50 ml Q15M PRN IV DECREASED GLUCOSE; Start 09/19/16 at 23:45 Glucagon (Glucagen) 1 mg Q15M PRN IM DECREASED GLUCOSE; Start 09/19/16 at 23:45 Glucose (Glutose) 15 gm Q15M PRN BUCCAL DECREASED GLUCOSE; Start 09/19/16 at 23: 45 Mupirocin (Bactroban) 1 applic BID TOP Last administered on 09/27/16 09:39; Admin Dose 1 APPLIC; Start 09/21/16 at 12:00 Famotidine (Pepcid) 20 mg BID PO Last administered on 09/27/16 09:38; Admin Dose 20 MG; Start 09/21/16 at 21:00 Nystatin (Nystatin Powder) 1 applic BID TOP Last administered on 09/27/16 09: 39; Admin Dose 1 APPLIC; Start 09/22/16 at 21:00 MICHELL RAMIREZ MD Sep 27, 2016 18:11
--- NOTE | 2016-09-27 20:12 | CONS ---
DATE OF ADMISSION: 09/21/2016 DATE OF CONSULTATION: REASON FOR CONSULTATION: Surgical. Thank you, Dr. Altamirano, for asking me to see this patient. HISTORY OF PRESENT ILLNESS: This is a 55-year-old female with a history of COPD, respiratory failur e on a tracheostomy, admitted with history of multiple DVTs. Currently her ultrasound examination h as been done, which has showed right lower extremity DVT with a patent with a thrombosed right commo n femoral vein, thrombosed right superficial femoral vein, but the popliteal vein is patent, and the calf veins are also patent. The patient is currently on the ventilator through a tracheostomy and being treated with Eliquis. PAST MEDICAL HISTORY: Hypertension, hyperlipidemia, COPD, dysphagia, depression, history of DVT, UT I, chronic kidney disease. MEDICATIONS: List reviewed, which includes: 1. Albuterol. 2. Eliquis. 3. Ascorbic acid. 4. Benazepril. 5. Lexapro. 6. Nexium. 7. Lasix. 8. Insulin. 9. Lactobacillus. 10. Zofran. PHYSICAL EXAMINATION: GENERAL: The patient appears to be obese with a BMI of 52.7. VITAL SIGNS: Blood pressure at the time of the exam is 124/76, pulse is 90, respiration is 22, temp erature is 97.7, O2 saturation is 99% on FIO2 of 28%. CARDIOVASCULAR: Regular rate and rhythm. LUNGS: Clear. ABDOMEN: Soft. EXTREMITIES: Warm. Both legs appeared to be soft. LABORATORY VALUES: Hemoglobin 10.3, white count 3.8, platelet count 72. INR is 3.09. IMPRESSION: Deep vein thrombosis, right lower extremity. RECOMMENDATIONS: Will plan for surgery. Would continue anticoagulation. Will discuss with Dr. Larry mcqueen. Dictated By: DARELL XIONG MD FM/NTS Conf#: [id number] DID#: [id number] CC: ANGELICA ALTAMIRANO MD; JAMES WELCH MD;*EndCC*
[2016-09-27 21:31] VITALS: BP 126/59; RESP 23
[2016-09-27] MEDS: ACCUCHECK AT 2AM (Patients on SS coverage) XX SCH (21:44)
[2016-09-27] MEDS: traMADol 50 MG TAB PO PRN (21:46)
[2016-09-28] MEDS: FUROSEMIDE 20 MG TAB PO SCH (05:14)
[2016-09-28 07:22] VITALS: BP 135/60; RESP 18
[2016-09-28] MEDS: INSULIN ASPART [NOVOLOG] 3 ML PEN SC SCH ×4 (08:00→21:00)
[2016-09-28] MEDS: CHLORHEXIDINE GLUCONATE 15 ML UD CUP MM SCH ×2 (08:12→21:12)
[2016-09-28] MEDS: OXYBUTYNIN 5 MG TAB PO SCH ×2 (08:13→21:12)
[2016-09-28] MEDS: FAMOTIDINE 20 MG TAB PO SCH ×2 (08:13→21:12)
[2016-09-28] MEDS: GABAPENTIN 100 MG CAP PO SCH (08:13)
[2016-09-28] MEDS: ESCITALOPRAM 10 MG TAB PO SCH (08:13)
[2016-09-28] MEDS: BENAZEPRIL 10 MG TAB PO SCH (08:14)
[2016-09-28] MEDS: ASCORBIC ACID 500 MG TAB PO SCH (08:14)
[2016-09-28] MEDS: BISACODYL 10 MG SUPP PR PRN ×2 (08:14→17:23)
[2016-09-28] MEDS: APIXABAN 5 MG TABLET PO SCH ×2 (08:14→21:12)
[2016-09-28] MEDS: ZINC SULFATE 220 MG CAP PO SCH (08:50)
[2016-09-28] MEDS: MULTIVITAMINS THERAPEUTIC TAB PO SCH (08:51)
[2016-09-28] MEDS: OCULAR LUBRICANT 3.5 GM OPH OINT BOTH EYES SCH ×2 (08:56→21:13)
[2016-09-28] MEDS: NYSTATIN 30 GM POWDER BTL TOP SCH ×2 (08:56→21:13)
[2016-09-28] MEDS: MUPIROCIN 2% 22 GM OINT TOP SCH ×2 (08:56→21:13)
--- NOTE | 2016-09-28 10:58 | CONS ---
Date/Time of Note Date/Time of Note DATE: 09/28/16 TIME: 10:14 Assessment/Plan Assessment/Plan Chief Complaint/Hosp Course 55 yo female with history or recurrent DVT who now presents with liver lesions and pancytopenia. Problems: Additional Assessment/Plan # Liver lesion -pt has been seen by Dr. Curtis who agrees pt most likely has HCC and that a liver bx is not needed -pt will be set up for out patient Transarterial chemoembolization -triple phase CT abdomen does demonstrate lesion concerning for neoplasm #Pancytopenia -likely secondary to liver cirrhosis -will monitor counts #h/o multiple DVT s/p IVC filter -LE ultrasounds confirms RLE DVT. spoke with radiologist who is not able to determine how old this clot is. -appreciate vascular surgery consult. thrombectomy will be attempted -cont Xarelto for now as it is not clear that patient failed anticoagulation. INR is currently 3. will monitor # question on bone mets -spoke with Abner Boateng, radiologist who stated there were infact NO BONE METS on CT. this was a misread and will be amended on the scan Approximately 40 min were spent at patient's bedside and in coordination of her care Consultation Date/Type/Reason Admit Date/Time Sep 21, 2016 at 10:00 Initial Consult Date 09/21/16 Type of Consultation: Hemeon Reason for Consultation HCC and RLE DVT Referring Provider: ANGELICA ALTAMIRANO MD 24 HR Interval Summary Free Text/Dictation no acute overnight events. pt was evaluated by Vascular surgery who is planning for thrombectomy. otherwise patient remains stable on the vent Constitutional: poor po Detailed Summary Respiratory: shortness of breath Gastrointestinal: pain Exam/Review of Systems Vital Signs Vitals Vital Signs Date Time Temp Pulse Resp B/P Pulse Ox O2 Delivery O2 Flow Rate FiO2 09/28/16 07:22 97.5 76 18 135/60 96 09/28/16 04:30 5.0 28 09/28/16 04:30 Aerosol T Tube Intake and Output 09/27/16 09/27/16 09/28/16 15:00 23:00 07:00 Intake Total 160 ml 400 ml 800 ml Balance 160 ml 400 ml 800 ml Exam Constitutional: alert, oriented Psych: nl mood/affect, no complaints Head: atraumatic, normocephalic Eyes: nl conjunctiva ENMT: nl external ears & nose Neck: non-tender, supple Respiratory: clear to auscultation, normal air movement Cardiovascular: nl pulses, regular rate and rhythm Gastrointestinal: soft Musculoskeletal: nl extremities to inspection, nl gait and stance Extremities: normal pulses 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: CERTIFIED WELDER II-XII intact Results Result Diagram: 09/26/1642909/26/16 0430 Results 24 hrs Laboratory Tests Test 09/27/16 12:27 09/27/16 12:56 09/27/16 18:52 09/27/16 21:43 Bedside Glucose 102 121 118 Lab Scanned Report REFERENCE LAB Test 09/28/16 08:06 Bedside Glucose 115 Medications Medications Current Medications Apixaban (Eliquis) 5 mg BID PO Last administered on 09/28/16 08:14; Admin Dose 5 MG; Start 09/20/16 at 09:00 Eye Lubricant (Akwa Oint) 1 applic BID BOTH EYES Last administered on 08:56; Admin Dose 1 APPLIC; Start 09/20/16 at 09:00 Ascorbic Acid (Vitamin C) 500 mg DAILY PO Last administered on 09/28/16 08:14 ; Admin Dose 500 MG; Start 09/20/16 at 09:00 Benazepril HCl (Lotensin) 10 mg DAILY PO Last administered on 09/28/16 08:14; Admin Dose 10 MG; Start 09/20/16 at 09:00 Bisacodyl (Dulcolax Supp) 10 mg Q24H PRN [place] PRN Last administered on 09/28/16 08:14; Admin Dose 10 MG; Start 09/19/16 at 23:30 Chlorhexidine Gluconate (Peridex) 15 ml Q12 MM Last administered on 09/28/16 08:12; Admin Dose 15 ML; Start 09/20/16 at 09:00 Escitalopram Oxalate (Lexapro) 5 mg DAILY PO Last administered on 09/28/16 08: 13; Admin Dose 5 MG; Start 09/20/16 at 09:00 Furosemide (Lasix) 20 mg DAILY@06 PO Last administered on 09/28/16 05:14; Admin Dose 20 MG; Start 09/20/16 at 06:00 Gabapentin (Neurontin) 100 mg DAILY PO Last administered on 09/28/16 08:13; Admin Dose 100 MG; Start 09/20/16 at 09:00 Magnesium Hydroxide (Milk Of Mag) 30 ml Q24H PRN PO PRN Last administered on 22:39; Admin Dose 30 ML; Start 09/19/16 at 23:30 Multivitamins Therapeutic (Theragran) 1 tab DAILY PO Last administered on 08:51; Admin Dose 1 TAB; Start 09/20/16 at 09:00 Oxybutynin Chloride (Ditropan) 5 mg BID PO Last administered on 09/28/16 08:13 ; Admin Dose 5 MG; Start 09/20/16 at 09:00 Polyethylene Glycol (Miralax) 17 gm DAILY PRN PO PRN Last administered on 03:17; Admin Dose 17 GM; Start 09/19/16 at 23:30 Tramadol HCl (Ultram) 50 mg TID PRN PO PAIN Last administered on 09/27/16 21: 46; Admin Dose 50 MG; Start 09/19/16 at 23:30 Zinc Sulfate (Zinc Sulfate) 220 mg DAILY PO Last administered on 09/28/16 08: 50; Admin Dose 220 MG; Start 09/20/16 at 09:00 Diphenhydramine HCl 50 mg 50 mg DAILY PRN PO ITCHING Last administered on 03:17; Admin Dose 50 MG; Start 09/19/16 at 23:30 Dextrose/Sodium Chloride (D5-1/2ns) 1,000 ml @ 40 mls/hr Q24H IV Last administered on 09/27/16 09:42; Admin Dose 40 MLS/HR; Start 09/19/16 at 23:16 Ondansetron HCl (Zofran Inj) 4 mg Q4H PRN IV NAUSEA AND/OR VOMITING Last administered on 09/20/16 06:20; Admin Dose 4 MG; Start 09/19/16 at 23:30 Hydromorphone HCl (Dilaudid) 0.5 mg Q4H PRN IV SEVERE PAIN LEVEL 7-10; Start at 23:30 Diagnostic Test (Pha) (Accucheck) 1 ea 02 XX Last administered on 09/22/16 02: 17; Admin Dose 1 EA; Start 09/20/16 at 02:00 Miscellaneous Information 1 ea NOTE XX ; Start 09/19/16 at 23:45 Glucose (Glutose) 15 gm Q15M PRN PO DECREASED GLUCOSE; Start 09/19/16 at 23:45 Glucose (Glutose) 22.5 gm Q15M PRN PO DECREASED GLUCOSE; Start 09/19/16 at 23:45 Dextrose (D50w Syringe) 25 ml Q15M PRN IV DECREASED GLUCOSE; Start 09/19/16 at 23:45 Dextrose (D50w Syringe) 50 ml Q15M PRN IV DECREASED GLUCOSE; Start 09/19/16 at 23:45 Glucagon (Glucagen) 1 mg Q15M PRN IM DECREASED GLUCOSE; Start 09/19/16 at 23:45 Glucose (Glutose) 15 gm Q15M PRN BUCCAL DECREASED GLUCOSE; Start 09/19/16 at 23: 45 Mupirocin (Bactroban) 1 applic BID TOP Last administered on 09/28/16 08:56; Admin Dose 1 APPLIC; Start 09/21/16 at 12:00 Famotidine (Pepcid) 20 mg BID PO Last administered on 09/28/16 08:13; Admin Dose 20 MG; Start 09/21/16 at 21:00 Nystatin (Nystatin Powder) 1 applic BID TOP Last administered on 09/28/16 08: 56; Admin Dose 1 APPLIC; Start 09/22/16 at 21:00 ELTON LINCOLN M.D. Sep 28, 2016 10:58
[2016-09-28] MEDS: ALBUTEROL 0.083% (NEB) 2.5 MG/3 ML AMP NEB PRN (12:10)
[2016-09-28] MEDS: DEXTROSE 5%-0.45% NACL 1,000 ML IV SCH (12:18)
--- NOTE | 2016-09-28 14:40 | CONS ---
Date/Time of Note Date/Time of Note DATE: 09/28/16 TIME: 14:37 Assessment/Plan Assessment/Plan Additional Assessment/Plan IMPRESSION: 1. Abdominal pain. 2. Cirrhosis of liver. 3. Morbid obesity. 4. Possible liver mass, rule out hepatocellular cancer. 5. Chronic obstructive pulmonary disease. 6. Deep venous thrombosis in the lower extremities. 7. Depression. 8. Diabetes mellitus. 9. Cirrhosis of liver. Plan 3 phase study for liver ,consistent with Hepatocellular cancer alfafeto protein .200,000 pt.need transarterial chemoembolization by IR Consultation Date/Type/Reason Admit Date/Time Sep 21, 2016 at 10:00 Initial Consult Date 09/21/16 Type of Consultation: Hemeon Referring Provider: ANGELICA ALTAMIRANO MD 24 HR Interval Summary Constitutional: no complaints Exam/Review of Systems Vital Signs Vitals Vital Signs Date Time Temp Pulse Resp B/P Pulse Ox O2 Delivery O2 Flow Rate FiO2 09/28/16 12:22 88 24 98 Aerosol 5.0 28 09/28/16 07:22 97.5 135/60 Intake and Output 09/27/16 09/27/16 09/28/16 15:00 23:00 07:00 Intake Total 160 ml 400 ml 800 ml Balance 160 ml 400 ml 800 ml Exam Constitutional: alert, oriented, well developed Psych: nl mood/affect, no complaints Head: atraumatic, normocephalic Eyes: EOMI, PERRL, nl conjunctiva, nl lids, nl sclera ENMT: nl external ears & nose, nl lips & teeth, nl nasal mucosa & septum Neck: non-tender, supple Respiratory: clear to auscultation, normal air movement Cardiovascular: nl pulses, regular rate and rhythm Gastrointestinal: nl liver, spleen, non-tender, soft Musculoskeletal: nl extremities to inspection, nl gait and stance Extremities: normal pulses 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: VENEER SLICING MACHINE OPERATOR II-XII intact, nl mental status, nl speech, nl strength Skin: nl turgor, No rash or lesions Lymph: nl lymph nodes Results Result Diagram: 09/26/1642909/26/16 0430 Results 24 hrs Laboratory Tests Test 09/27/16 18:52 09/27/16 21:43 09/28/16 08:06 09/28/16 12:12 Bedside Glucose 121 118 115 132 Medications Medications Current Medications Apixaban (Eliquis) 5 mg BID PO Last administered on 09/28/16 08:14; Admin Dose 5 MG; Start 09/20/16 at 09:00 Eye Lubricant (Akwa Oint) 1 applic BID BOTH EYES Last administered on 08:56; Admin Dose 1 APPLIC; Start 09/20/16 at 09:00 Ascorbic Acid (Vitamin C) 500 mg DAILY PO Last administered on 09/28/16 08:14 ; Admin Dose 500 MG; Start 09/20/16 at 09:00 Benazepril HCl (Lotensin) 10 mg DAILY PO Last administered on 09/28/16 08:14; Admin Dose 10 MG; Start 09/20/16 at 09:00 Bisacodyl (Dulcolax Supp) 10 mg Q24H PRN [place] PRN Last administered on 09/28/16 08:14; Admin Dose 10 MG; Start 09/19/16 at 23:30 Chlorhexidine Gluconate (Peridex) 15 ml Q12 MM Last administered on 09/28/16 08:12; Admin Dose 15 ML; Start 09/20/16 at 09:00 Escitalopram Oxalate (Lexapro) 5 mg DAILY PO Last administered on 09/28/16 08: 13; Admin Dose 5 MG; Start 09/20/16 at 09:00 Furosemide (Lasix) 20 mg DAILY@06 PO Last administered on 09/28/16 05:14; Admin Dose 20 MG; Start 09/20/16 at 06:00 Gabapentin (Neurontin) 100 mg DAILY PO Last administered on 09/28/16 08:13; Admin Dose 100 MG; Start 09/20/16 at 09:00 Magnesium Hydroxide (Milk Of Mag) 30 ml Q24H PRN PO PRN Last administered on 22:39; Admin Dose 30 ML; Start 09/19/16 at 23:30 Multivitamins Therapeutic (Theragran) 1 tab DAILY PO Last administered on 08:51; Admin Dose 1 TAB; Start 09/20/16 at 09:00 Oxybutynin Chloride (Ditropan) 5 mg BID PO Last administered on 09/28/16 08:13 ; Admin Dose 5 MG; Start 09/20/16 at 09:00 Polyethylene Glycol (Miralax) 17 gm DAILY PRN PO PRN Last administered on 03:17; Admin Dose 17 GM; Start 09/19/16 at 23:30 Tramadol HCl (Ultram) 50 mg TID PRN PO PAIN Last administered on 09/27/16 21: 46; Admin Dose 50 MG; Start 09/19/16 at 23:30 Zinc Sulfate (Zinc Sulfate) 220 mg DAILY PO Last administered on 09/28/16 08: 50; Admin Dose 220 MG; Start 09/20/16 at 09:00 Diphenhydramine HCl 50 mg 50 mg DAILY PRN PO ITCHING Last administered on 03:17; Admin Dose 50 MG; Start 09/19/16 at 23:30 Dextrose/Sodium Chloride (D5-1/2ns) 1,000 ml @ 40 mls/hr Q24H IV Last administered on 09/28/16 12:18; Admin Dose 40 MLS/HR; Start 09/19/16 at 23:16 Ondansetron HCl (Zofran Inj) 4 mg Q4H PRN IV NAUSEA AND/OR VOMITING Last administered on 09/20/16 06:20; Admin Dose 4 MG; Start 09/19/16 at 23:30 Hydromorphone HCl (Dilaudid) 0.5 mg Q4H PRN IV SEVERE PAIN LEVEL 7-10; Start at 23:30 Diagnostic Test (Pha) (Accucheck) 1 ea 02 XX Last administered on 09/22/16 02: 17; Admin Dose 1 EA; Start 09/20/16 at 02:00 Miscellaneous Information 1 ea NOTE XX ; Start 09/19/16 at 23:45 Glucose (Glutose) 15 gm Q15M PRN PO DECREASED GLUCOSE; Start 09/19/16 at 23:45 Glucose (Glutose) 22.5 gm Q15M PRN PO DECREASED GLUCOSE; Start 09/19/16 at 23:45 Dextrose (D50w Syringe) 25 ml Q15M PRN IV DECREASED GLUCOSE; Start 09/19/16 at 23:45 Dextrose (D50w Syringe) 50 ml Q15M PRN IV DECREASED GLUCOSE; Start 09/19/16 at 23:45 Glucagon (Glucagen) 1 mg Q15M PRN IM DECREASED GLUCOSE; Start 09/19/16 at 23:45 Glucose (Glutose) 15 gm Q15M PRN BUCCAL DECREASED GLUCOSE; Start 09/19/16 at 23: 45 Mupirocin (Bactroban) 1 applic BID TOP Last administered on 09/28/16 08:56; Admin Dose 1 APPLIC; Start 09/21/16 at 12:00 Famotidine (Pepcid) 20 mg BID PO Last administered on 09/28/16 08:13; Admin Dose 20 MG; Start 09/21/16 at 21:00 Nystatin (Nystatin Powder) 1 applic BID TOP Last administered on 09/28/16 08: 56; Admin Dose 1 APPLIC; Start 09/22/16 at 21:00 MICHELL RAMIREZ MD Sep 28, 2016 14:40
[2016-09-28 21:19] VITALS: BP 115/56; RESP 21
--- NOTE | 2016-09-28 21:33 | PN ---
Date/Time of Note Date/Time of Note DATE: 09/28/16 TIME: 21:32 Assessment/Plan VTE Prophylaxis VTE Prophylaxis Intervention: other Lines/Catheters IV Catheter Type (from [facility], [place]): Peripheral IV Urinary Cath still in place: No Assessment/Plan Chief Complaint/Hosp Course IMPRESSION: 1. cirrhosis 2. Rule out malignancy. 3. Abnormal LFT. 4. Hypertension, diabetes mellitus, obesity, tracheostomy, COPD, DVT, history of inferior vena cava filter placement. 5 r/o liver tumor plan per dr gilmore per gi per dr mccarthy per dr gilmore Problems: Subjective 24 Hr Interval Summary Gastrointestinal: no complaints Genitourinary: no complaints Exam/Review of Systems Vital Signs Vitals Vital Signs Date Time Temp Pulse Resp B/P Pulse Ox O2 Delivery O2 Flow Rate FiO2 09/28/16 21:19 98.0 84 21 115/56 94 09/28/16 17:11 Aerosol 5.0 09/28/16 12:22 28 Intake and Output 09/27/16 09/27/16 09/28/16 15:00 23:00 07:00 Intake Total 160 ml 400 ml 890 ml Balance 160 ml 400 ml 890 ml Exam Respiratory: clear to auscultation Cardiovascular: regular rate and rhythm Gastrointestinal: bowel sounds (+), soft Results Result Diagram: 09/26/16 04309/26/16 0430 Results 24 hrs Laboratory Tests Test 09/27/16 21:43 09/28/16 08:06 09/28/16 12:12 09/28/16 17:20 Bedside Glucose 118 115 132 112 Test 09/28/16 20:46 Bedside Glucose 140 Medications Medications Current Medications Apixaban (Eliquis) 5 mg BID PO Last administered on 09/28/16 21:12; Admin Dose 5 MG; Start 09/20/16 at 09:00 Eye Lubricant (Akwa Oint) 1 applic BID BOTH EYES Last administered on 21:13; Admin Dose 1 APPLIC; Start 09/20/16 at 09:00 Ascorbic Acid (Vitamin C) 500 mg DAILY PO Last administered on 09/28/16 08:14 ; Admin Dose 500 MG; Start 09/20/16 at 09:00 Benazepril HCl (Lotensin) 10 mg DAILY PO Last administered on 09/28/16 08:14; Admin Dose 10 MG; Start 09/20/16 at 09:00 Bisacodyl (Dulcolax Supp) 10 mg Q24H PRN [place] PRN Last administered on 09/27/16 05:44; Admin Dose 10 MG; Start 09/19/16 at 23:30 Chlorhexidine Gluconate (Peridex) 15 ml Q12 MM Last administered on 09/28/16 21:12; Admin Dose 15 ML; Start 09/20/16 at 09:00 Escitalopram Oxalate (Lexapro) 5 mg DAILY PO Last administered on 09/28/16 08: 13; Admin Dose 5 MG; Start 09/20/16 at 09:00 Furosemide (Lasix) 20 mg DAILY@06 PO Last administered on 09/28/16 05:14; Admin Dose 20 MG; Start 09/20/16 at 06:00 Gabapentin (Neurontin) 100 mg DAILY PO Last administered on 09/28/16 08:13; Admin Dose 100 MG; Start 09/20/16 at 09:00 Magnesium Hydroxide (Milk Of Mag) 30 ml Q24H PRN PO PRN Last administered on 22:39; Admin Dose 30 ML; Start 09/19/16 at 23:30 Multivitamins Therapeutic (Theragran) 1 tab DAILY PO Last administered on 08:51; Admin Dose 1 TAB; Start 09/20/16 at 09:00 Oxybutynin Chloride (Ditropan) 5 mg BID PO Last administered on 09/28/16 21:12 ; Admin Dose 5 MG; Start 09/20/16 at 09:00 Polyethylene Glycol (Miralax) 17 gm DAILY PRN PO PRN Last administered on 03:17; Admin Dose 17 GM; Start 09/19/16 at 23:30 Tramadol HCl (Ultram) 50 mg TID PRN PO PAIN Last administered on 09/27/16 21: 46; Admin Dose 50 MG; Start 09/19/16 at 23:30 Zinc Sulfate (Zinc Sulfate) 220 mg DAILY PO Last administered on 09/28/16 08: 50; Admin Dose 220 MG; Start 09/20/16 at 09:00 Diphenhydramine HCl 50 mg 50 mg DAILY PRN PO ITCHING Last administered on 1/10/ 17at 03:17; Admin Dose 50 MG; Start 09/19/16 at 23:30 Dextrose/Sodium Chloride (D5-1/2ns) 1,000 ml @ 40 mls/hr Q24H IV Last administered on 09/28/16 12:18; Admin Dose 40 MLS/HR; Start 09/19/16 at 23:16 Ondansetron HCl (Zofran Inj) 4 mg Q4H PRN IV NAUSEA AND/OR VOMITING Last administered on 09/20/16 06:20; Admin Dose 4 MG; Start 09/19/16 at 23:30 Hydromorphone HCl (Dilaudid) 0.5 mg Q4H PRN IV SEVERE PAIN LEVEL 7-10; Start at 23:30 Diagnostic Test (Pha) (Accucheck) 1 ea 02 XX Last administered on 09/22/16 02: 17; Admin Dose 1 EA; Start 09/20/16 at 02:00 Miscellaneous Information 1 ea NOTE XX ; Start 09/19/16 at 23:45 Glucose (Glutose) 15 gm Q15M PRN PO DECREASED GLUCOSE; Start 09/19/16 at 23:45 Glucose (Glutose) 22.5 gm Q15M PRN PO DECREASED GLUCOSE; Start 09/19/16 at 23:45 Dextrose (D50w Syringe) 25 ml Q15M PRN IV DECREASED GLUCOSE; Start 09/19/16 at 23:45 Dextrose (D50w Syringe) 50 ml Q15M PRN IV DECREASED GLUCOSE; Start 09/19/16 at 23:45 Glucagon (Glucagen) 1 mg Q15M PRN IM DECREASED GLUCOSE; Start 09/19/16 at 23:45 Glucose (Glutose) 15 gm Q15M PRN BUCCAL DECREASED GLUCOSE; Start 09/19/16 at 23: 45 Mupirocin (Bactroban) 1 applic BID TOP Last administered on 09/28/16 21:13; Admin Dose 1 APPLIC; Start 09/21/16 at 12:00 Famotidine (Pepcid) 20 mg BID PO Last administered on 09/28/16 21:12; Admin Dose 20 MG; Start 09/21/16 at 21:00 Nystatin (Nystatin Powder) 1 applic BID TOP Last administered on 09/28/16 21: 13; Admin Dose 1 APPLIC; Start 09/22/16 at 21:00 ANGELICA ALTAMIRANO MD Sep 28, 2016 21:33
[2016-09-29] MEDS: ACCUCHECK AT 2AM (Patients on SS coverage) XX SCH (02:00)
[2016-09-29] MEDS: traMADol 50 MG TAB PO PRN ×3 (02:46→21:42)
[2016-09-29] MEDS: ALBUTEROL 0.083% (NEB) 2.5 MG/3 ML AMP NEB PRN ×2 (02:51→19:50)
[2016-09-29] MEDS: FUROSEMIDE 20 MG TAB PO SCH (05:39)
[2016-09-29 07:38] VITALS: BP 126/58; RESP 16
[2016-09-29] MEDS: INSULIN ASPART [NOVOLOG] 3 ML PEN SC SCH ×4 (08:00→21:00)
[2016-09-29] MEDS: OCULAR LUBRICANT 3.5 GM OPH OINT BOTH EYES SCH ×2 (09:54→21:28)
[2016-09-29] MEDS: ESCITALOPRAM 10 MG TAB PO SCH (09:57)
[2016-09-29] MEDS: OXYBUTYNIN 5 MG TAB PO SCH ×2 (09:57→21:26)
[2016-09-29] MEDS: APIXABAN 5 MG TABLET PO SCH ×2 (09:57→21:26)
[2016-09-29] MEDS: CHLORHEXIDINE GLUCONATE 15 ML UD CUP MM SCH ×2 (09:57→21:26)
[2016-09-29] MEDS: ASCORBIC ACID 500 MG TAB PO SCH (09:58)
[2016-09-29] MEDS: FAMOTIDINE 20 MG TAB PO SCH ×2 (09:58→21:26)
[2016-09-29] MEDS: MULTIVITAMINS THERAPEUTIC TAB PO SCH (09:58)
[2016-09-29] MEDS: BENAZEPRIL 10 MG TAB PO SCH (09:58)
[2016-09-29] MEDS: GABAPENTIN 100 MG CAP PO SCH (09:58)
[2016-09-29] MEDS: ZINC SULFATE 220 MG CAP PO SCH (09:59)
[2016-09-29] MEDS: NYSTATIN 30 GM POWDER BTL TOP SCH ×2 (09:59→21:28)
[2016-09-29] MEDS: MUPIROCIN 2% 22 GM OINT TOP SCH ×2 (10:00→21:29)
--- NOTE | 2016-09-29 10:24 | CONS ---
Date/Time of Note Date/Time of Note DATE: 09/29/16 TIME: 10:22 Assessment/Plan Assessment/Plan Chief Complaint/Hosp Course 55 yo female with history or recurrent DVT who now presents with liver lesions and pancytopenia. Problems: Additional Assessment/Plan # Liver lesion -pt has been seen by Dr. Curtis who agrees pt most likely has HCC and that a liver bx is not needed, AFP > 200,000 -pt will be set up for out patient Transarterial chemoembolization -triple phase CT abdomen does demonstrate lesion concerning for neoplasm #Pancytopenia -likely secondary to liver cirrhosis -will monitor counts #h/o multiple DVT s/p IVC filter -LE ultrasounds confirms RLE DVT. spoke with radiologist who is not able to determine how old this clot is. -appreciate vascular surgery consult. thrombectomy will be attempted -cont Xarelto for now as it is not clear that patient failed anticoagulation. INR is currently 3. will monitor # question on bone mets -spoke with Abner Boateng, radiologist who stated there were infact NO BONE METS on CT. this was a misread and will be amended on the scan Approximately 40 min were spent at patient's bedside and in coordination of her care Consultation Date/Type/Reason Admit Date/Time Sep 21, 2016 at 10:00 Initial Consult Date 09/21/16 Type of Consultation: Hemeonc Reason for Consultation HCC Referring Provider: ANGELICA ALTAMIRANO MD 24 HR Interval Summary Free Text/Dictation no acute overnight events Exam/Review of Systems Vital Signs Vitals Vital Signs Date Time Temp Pulse Resp B/P Pulse Ox O2 Delivery O2 Flow Rate FiO2 09/29/16 08:28 98 26 93 Aerosol 5.0 28 09/29/16 07:38 98.2 126/58 Intake and Output 09/28/16 09/28/16 09/29/16 15:00 23:00 07:00 Intake Total 200 ml 2000 ml 640 ml Balance 200 ml 2000 ml 640 ml Exam Constitutional: alert, obese, oriented Eyes: nl conjunctiva ENMT: nl external ears & nose Neck: other (trach in place) Respiratory: clear to auscultation, normal air movement Cardiovascular: nl pulses, regular rate and rhythm Gastrointestinal: soft Musculoskeletal: nl extremities to inspection, nl gait and stance Extremities: normal pulses 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: RESEARCH ASSOC II-XII intact Results Result Diagram: 1/9/17 0430 1/9/17 0430 Results 24 hrs Laboratory Tests Test 09/28/16 12:12 09/28/16 17:20 09/28/16 20:46 09/29/16 08:09 Bedside Glucose 132 112 140 104 Medications Medications Current Medications Apixaban (Eliquis) 5 mg BID PO Last administered on 09/29/16 09:57; Admin Dose 5 MG; Start 09/20/16 at 09:00 Eye Lubricant (Akwa Oint) 1 applic BID BOTH EYES Last administered on 09:54; Admin Dose 1 APPLIC; Start 09/20/16 at 09:00 Ascorbic Acid (Vitamin C) 500 mg DAILY PO Last administered on 09/29/16 09:58 ; Admin Dose 500 MG; Start 09/20/16 at 09:00 Benazepril HCl (Lotensin) 10 mg DAILY PO Last administered on 09/29/16 09:58; Admin Dose 10 MG; Start 09/20/16 at 09:00 Bisacodyl (Dulcolax Supp) 10 mg Q24H PRN [place] PRN Last administered on 09/27/16 05:44; Admin Dose 10 MG; Start 09/19/16 at 23:30 Chlorhexidine Gluconate (Peridex) 15 ml Q12 MM Last administered on 09/29/16 09:57; Admin Dose 15 ML; Start 09/20/16 at 09:00 Escitalopram Oxalate (Lexapro) 5 mg DAILY PO Last administered on 09/29/16 09: 57; Admin Dose 5 MG; Start 09/20/16 at 09:00 Furosemide (Lasix) 20 mg DAILY@06 PO Last administered on 09/29/16 05:39; Admin Dose 20 MG; Start 09/20/16 at 06:00 Gabapentin (Neurontin) 100 mg DAILY PO Last administered on 09/29/16 09:58; Admin Dose 100 MG; Start 09/20/16 at 09:00 Magnesium Hydroxide (Milk Of Mag) 30 ml Q24H PRN PO PRN Last administered on 22:39; Admin Dose 30 ML; Start 09/19/16 at 23:30 Multivitamins Therapeutic (Theragran) 1 tab DAILY PO Last administered on 09:58; Admin Dose 1 TAB; Start 09/20/16 at 09:00 Oxybutynin Chloride (Ditropan) 5 mg BID PO Last administered on 09/29/16 09:57 ; Admin Dose 5 MG; Start 09/20/16 at 09:00 Polyethylene Glycol (Miralax) 17 gm DAILY PRN PO PRN Last administered on 03:17; Admin Dose 17 GM; Start 09/19/16 at 23:30 Tramadol HCl (Ultram) 50 mg TID PRN PO PAIN Last administered on 09/29/16 05: 42; Admin Dose 50 MG; Start 09/19/16 at 23:30 Zinc Sulfate (Zinc Sulfate) 220 mg DAILY PO Last administered on 09/29/16 09: 59; Admin Dose 220 MG; Start 09/20/16 at 09:00 Diphenhydramine HCl 50 mg 50 mg DAILY PRN PO ITCHING Last administered on 03:17; Admin Dose 50 MG; Start 09/19/16 at 23:30 Dextrose/Sodium Chloride (D5-1/2ns) 1,000 ml @ 40 mls/hr Q24H IV Last administered on 09/28/16 12:18; Admin Dose 40 MLS/HR; Start 09/19/16 at 23:16 Ondansetron HCl (Zofran Inj) 4 mg Q4H PRN IV NAUSEA AND/OR VOMITING Last administered on 09/20/16 06:20; Admin Dose 4 MG; Start 09/19/16 at 23:30 Hydromorphone HCl (Dilaudid) 0.5 mg Q4H PRN IV SEVERE PAIN LEVEL 7-10; Start at 23:30 Diagnostic Test (Pha) (Accucheck) 1 ea 02 XX Last administered on 09/22/16 02: 17; Admin Dose 1 EA; Start 09/20/16 at 02:00 Miscellaneous Information 1 ea NOTE XX ; Start 09/19/16 at 23:45 Glucose (Glutose) 15 gm Q15M PRN PO DECREASED GLUCOSE; Start 09/19/16 at 23:45 Glucose (Glutose) 22.5 gm Q15M PRN PO DECREASED GLUCOSE; Start 09/19/16 at 23:45 Dextrose (D50w Syringe) 25 ml Q15M PRN IV DECREASED GLUCOSE; Start 09/19/16 at 23:45 Dextrose (D50w Syringe) 50 ml Q15M PRN IV DECREASED GLUCOSE; Start 09/19/16 at 23:45 Glucagon (Glucagen) 1 mg Q15M PRN IM DECREASED GLUCOSE; Start 09/19/16 at 23:45 Glucose (Glutose) 15 gm Q15M PRN BUCCAL DECREASED GLUCOSE; Start 09/19/16 at 23: 45 Mupirocin (Bactroban) 1 applic BID TOP Last administered on 09/29/16 10:00; Admin Dose 1 APPLIC; Start 09/21/16 at 12:00 Famotidine (Pepcid) 20 mg BID PO Last administered on 09/29/16 09:58; Admin Dose 20 MG; Start 09/21/16 at 21:00 Nystatin (Nystatin Powder) 1 applic BID TOP Last administered on 09/29/16 09: 59; Admin Dose 1 APPLIC; Start 09/22/16 at 21:00 ELTON LINCOLN M.D. Sep 29, 2016 10:24
--- NOTE | 2016-09-29 12:37 | CONS ---
Date/Time of Note Date/Time of Note DATE: 09/29/16 TIME: 12:35 Assessment/Plan Assessment/Plan Additional Assessment/Plan Assessment/Plan Assessment/Plan Additional Assessment/Plan IMPRESSION: 1. Abdominal pain. 2. Cirrhosis of liver. 3. Morbid obesity. 4. Possible liver mass, rule out hepatocellular cancer. 5. Chronic obstructive pulmonary disease. 6. Deep venous thrombosis in the lower extremities. 7. Depression. 8. Diabetes mellitus. 9. Cirrhosis of liver. Plan 3 phase study for liver ,consistent with Hepatocellular cancer Jesus feto protein .200,000 pt.need transarterial chemoembolization by IR Consultation Date/Type/Reason Admit Date/Time Sep 21, 2016 at 10:00 Initial Consult Date 09/21/16 Type of Consultation: Hemeon Referring Provider: ANGELICA ALTAMIRANO MD 24 HR Interval Summary Free Text/Dictation abdominal pain Exam/Review of Systems Vital Signs Vitals Vital Signs Date Time Temp Pulse Resp B/P Pulse Ox O2 Delivery O2 Flow Rate FiO2 09/29/16 08:28 98 26 93 Aerosol 5.0 28 09/29/16 07:38 98.2 126/58 Intake and Output 09/28/16 09/28/16 09/29/16 14:59 22:59 06:59 Intake Total 290 ml 2000 ml 640 ml Balance 290 ml 2000 ml 640 ml Exam Constitutional: alert, oriented, well developed Psych: nl mood/affect, no complaints Head: atraumatic, normocephalic Eyes: EOMI, PERRL, nl conjunctiva, nl lids, nl sclera ENMT: nl external ears & nose, nl lips & teeth, nl nasal mucosa & septum Neck: non-tender, supple Respiratory: clear to auscultation, normal air movement Cardiovascular: nl pulses, regular rate and rhythm Gastrointestinal: nl liver, spleen, non-tender, soft Musculoskeletal: nl extremities to inspection, nl gait and stance Extremities: normal pulses 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: 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 intact, nl mental status, nl speech, nl strength Skin: nl turgor, No rash or lesions Lymph: nl lymph nodes Results Result Diagram: 09/26/1642909/26/16429 Results 24 hrs Laboratory Tests Test 09/28/16 17:20 09/28/16 20:46 09/29/16 08:09 Bedside Glucose 112 140 104 Medications Medications Current Medications Apixaban (Eliquis) 5 mg BID PO Last administered on 09/29/16 09:57; Admin Dose 5 MG; Start 09/20/16 at 09:00 Eye Lubricant (Akwa Oint) 1 applic BID BOTH EYES Last administered on 09:54; Admin Dose 1 APPLIC; Start 09/20/16 at 09:00 Ascorbic Acid (Vitamin C) 500 mg DAILY PO Last administered on 09/29/16 09:58 ; Admin Dose 500 MG; Start 09/20/16 at 09:00 Benazepril HCl (Lotensin) 10 mg DAILY PO Last administered on 09/29/16 09:58; Admin Dose 10 MG; Start 09/20/16 at 09:00 Bisacodyl (Dulcolax Supp) 10 mg Q24H PRN OK PRN Last administered on 09/27/16 05:44; Admin Dose 10 MG; Start 09/19/16 at 23:30 Chlorhexidine Gluconate (Peridex) 15 ml Q12 MM Last administered on 09/29/16 09:57; Admin Dose 15 ML; Start 09/20/16 at 09:00 Escitalopram Oxalate (Lexapro) 5 mg DAILY PO Last administered on 09/29/16 09: 57; Admin Dose 5 MG; Start 09/20/16 at 09:00 Furosemide (Lasix) 20 mg DAILY@06 PO Last administered on 09/29/16 05:39; Admin Dose 20 MG; Start 09/20/16 at 06:00 Gabapentin (Neurontin) 100 mg DAILY PO Last administered on 09/29/16 09:58; Admin Dose 100 MG; Start 09/20/16 at 09:00 Magnesium Hydroxide (Milk Of Mag) 30 ml Q24H PRN PO PRN Last administered on 22:39; Admin Dose 30 ML; Start 09/19/16 at 23:30 Multivitamins Therapeutic (Theragran) 1 tab DAILY PO Last administered on 09:58; Admin Dose 1 TAB; Start 09/20/16 at 09:00 Oxybutynin Chloride (Ditropan) 5 mg BID PO Last administered on 09/29/16 09:57 ; Admin Dose 5 MG; Start 09/20/16 at 09:00 Polyethylene Glycol (Miralax) 17 gm DAILY PRN PO PRN Last administered on 03:17; Admin Dose 17 GM; Start 09/19/16 at 23:30 Tramadol HCl (Ultram) 50 mg TID PRN PO PAIN Last administered on 09/29/16 05: 42; Admin Dose 50 MG; Start 09/19/16 at 23:30 Zinc Sulfate (Zinc Sulfate) 220 mg DAILY PO Last administered on 09/29/16 09: 59; Admin Dose 220 MG; Start 09/20/16 at 09:00 Diphenhydramine HCl 50 mg 50 mg DAILY PRN PO ITCHING Last administered on 03:17; Admin Dose 50 MG; Start 09/19/16 at 23:30 Dextrose/Sodium Chloride (D5-1/2ns) 1,000 ml @ 40 mls/hr Q24H IV Last administered on 09/28/16 12:18; Admin Dose 40 MLS/HR; Start 09/19/16 at 23:16 Ondansetron HCl (Zofran Inj) 4 mg Q4H PRN IV NAUSEA AND/OR VOMITING Last administered on 09/20/16 06:20; Admin Dose 4 MG; Start 09/19/16 at 23:30 Hydromorphone HCl (Dilaudid) 0.5 mg Q4H PRN IV SEVERE PAIN LEVEL 7-10; Start at 23:30 Diagnostic Test (Pha) (Accucheck) 1 ea 02 XX Last administered on 09/22/16 02: 17; Admin Dose 1 EA; Start 09/20/16 at 02:00 Miscellaneous Information 1 ea NOTE XX ; Start 09/19/16 at 23:45 Glucose (Glutose) 15 gm Q15M PRN PO DECREASED GLUCOSE; Start 09/19/16 at 23:45 Glucose (Glutose) 22.5 gm Q15M PRN PO DECREASED GLUCOSE; Start 09/19/16 at 23:45 Dextrose (D50w Syringe) 25 ml Q15M PRN IV DECREASED GLUCOSE; Start 09/19/16 at 23:45 Dextrose (D50w Syringe) 50 ml Q15M PRN IV DECREASED GLUCOSE; Start 09/19/16 at 23:45 Glucagon (Glucagen) 1 mg Q15M PRN IM DECREASED GLUCOSE; Start 09/19/16 at 23:45 Glucose (Glutose) 15 gm Q15M PRN BUCCAL DECREASED GLUCOSE; Start 09/19/16 at 23: 45 Mupirocin (Bactroban) 1 applic BID TOP Last administered on 09/29/16 10:00; Admin Dose 1 APPLIC; Start 09/21/16 at 12:00 Famotidine (Pepcid) 20 mg BID PO Last administered on 09/29/16 09:58; Admin Dose 20 MG; Start 09/21/16 at 21:00 Nystatin (Nystatin Powder) 1 applic BID TOP Last administered on 09/29/16 09: 59; Admin Dose 1 APPLIC; Start 09/22/16 at 21:00 MICHELL RAMIREZ MD Sep 29, 2016 12:37
--- NOTE | 2016-09-29 15:41 | PDOCDIS ---
Discharge Instructions CONDITION Patient Condition: Stable HOME CARE INSTRUCTIONS: Special Diet: Carb Controlled diet. ACTIVITY: Activity Restrictions: Slowly Increase Activity FOLLOW UP/APPOINTMENTS Appointments f/u dr gilmore [address] mccarthy 1 wk ANGELICA ALTAMIRANO MD Sep 29, 2016 15:41
[2016-09-29] MEDS ORDERED: MUPI22OI2 TOP (15:46)
--- NOTE | 2016-09-29 15:49 | PN ---
Date/Time of Note Date/Time of Note DATE: 09/29/16 TIME: 15:48 Assessment/Plan VTE Prophylaxis VTE Prophylaxis Intervention: other Lines/Catheters IV [facility] Peripheral IV Urinary Cath still in place: No Assessment/Plan Chief Complaint/Hosp Course IMPRESSION: 1. cirrhosis 2. Rule out malignancy. 3. Abnormal LFT. 4. Hypertension, diabetes mellitus, obesity, tracheostomy, COPD, DVT, history of inferior vena cava filter placement. 5 r/o liver tumor 6 high afp plan per dr gilmore per gi per dr mccarthy per dr gilmore out pt work up Problems: Subjective 24 Hr Interval Summary Gastrointestinal: no complaints Genitourinary: no complaints Exam/Review of Systems Vital Signs Vitals Vital Signs Date Time Temp Pulse Resp B/P Pulse Ox O2 Delivery O2 Flow Rate FiO2 09/29/16 08:28 98 26 93 Aerosol 5.0 28 09/29/16 07:38 98.2 126/58 Intake and Output 09/28/16 09/28/16 09/29/16 15:00 23:00 07:00 Intake Total 200 ml 2000 ml 640 ml Balance 200 ml 2000 ml 640 ml Exam Respiratory: clear to auscultation Cardiovascular: regular rate and rhythm Gastrointestinal: bowel sounds (+), soft Results Result Diagram: 09/26/16 0430 09/26/16 0430 Results 24 hrs Laboratory Tests Test 09/28/16 17:20 09/28/16 20:46 09/29/16 08:09 09/29/16 12:41 Bedside Glucose 112 140 104 128 Medications Medications Current Medications Apixaban (Eliquis) 5 mg BID PO Last administered on 09/29/16 09:57; Admin Dose 5 MG; Start 09/20/16 at 09:00 Eye Lubricant (Akwa Oint) 1 applic BID BOTH EYES Last administered on 09:54; Admin Dose 1 APPLIC; Start 09/20/16 at 09:00 Ascorbic Acid (Vitamin C) 500 mg DAILY PO Last administered on 09/29/16 09:58 ; Admin Dose 500 MG; Start 09/20/16 at 09:00 Benazepril HCl (Lotensin) 10 mg DAILY PO Last administered on 09/29/16 09:58; Admin Dose 10 MG; Start 09/20/16 at 09:00 Bisacodyl (Dulcolax Supp) 10 mg Q24H PRN OK PRN Last administered on 09/27/16 05:44; Admin Dose 10 MG; Start 09/19/16 at 23:30 Chlorhexidine Gluconate (Peridex) 15 ml Q12 MM Last administered on 09/29/16 09:57; Admin Dose 15 ML; Start 09/20/16 at 09:00 Escitalopram Oxalate (Lexapro) 5 mg DAILY PO Last administered on 09/29/16 09: 57; Admin Dose 5 MG; Start 09/20/16 at 09:00 Furosemide (Lasix) 20 mg DAILY@06 PO Last administered on 09/29/16 05:39; Admin Dose 20 MG; Start 09/20/16 at 06:00 Gabapentin (Neurontin) 100 mg DAILY PO Last administered on 09/29/16 09:58; Admin Dose 100 MG; Start 09/20/16 at 09:00 Magnesium Hydroxide (Milk Of Mag) 30 ml Q24H PRN PO PRN Last administered on 22:39; Admin Dose 30 ML; Start 09/19/16 at 23:30 Multivitamins Therapeutic (Theragran) 1 tab DAILY PO Last administered on 09:58; Admin Dose 1 TAB; Start 09/20/16 at 09:00 Oxybutynin Chloride (Ditropan) 5 mg BID PO Last administered on 09/29/16 09:57 ; Admin Dose 5 MG; Start 09/20/16 at 09:00 Polyethylene Glycol (Miralax) 17 gm DAILY PRN PO PRN Last administered on 03:17; Admin Dose 17 GM; Start 09/19/16 at 23:30 Tramadol HCl (Ultram) 50 mg TID PRN PO PAIN Last administered on 09/29/16 05: 42; Admin Dose 50 MG; Start 09/19/16 at 23:30 Zinc Sulfate (Zinc Sulfate) 220 mg DAILY PO Last administered on 09/29/16 09: 59; Admin Dose 220 MG; Start 09/20/16 at 09:00 Diphenhydramine HCl 50 mg 50 mg DAILY PRN PO ITCHING Last administered on 03:17; Admin Dose 50 MG; Start 1/2/17 at 23:30 Dextrose/Sodium Chloride (D5-1/2ns) 1,000 ml @ 40 mls/hr Q24H IV Last administered on 09/28/16 12:18; Admin Dose 40 MLS/HR; Start 09/19/16 at 23:16 Ondansetron HCl (Zofran Inj) 4 mg Q4H PRN IV NAUSEA AND/OR VOMITING Last administered on 09/20/16 06:20; Admin Dose 4 MG; Start 09/19/16 at 23:30 Hydromorphone HCl (Dilaudid) 0.5 mg Q4H PRN IV SEVERE PAIN LEVEL 7-10; Start at 23:30 Diagnostic Test (Pha) (Accucheck) 1 ea 02 XX Last administered on 09/22/16 02: 17; Admin Dose 1 EA; Start 09/20/16 at 02:00 Miscellaneous Information 1 ea NOTE XX ; Start 09/19/16 at 23:45 Glucose (Glutose) 15 gm Q15M PRN PO DECREASED GLUCOSE; Start 09/19/16 at 23:45 Glucose (Glutose) 22.5 gm Q15M PRN PO DECREASED GLUCOSE; Start 09/19/16 at 23:45 Dextrose (D50w Syringe) 25 ml Q15M PRN IV DECREASED GLUCOSE; Start 09/19/16 at 23:45 Dextrose (D50w Syringe) 50 ml Q15M PRN IV DECREASED GLUCOSE; Start 09/19/16 at 23:45 Glucagon (Glucagen) 1 mg Q15M PRN IM DECREASED GLUCOSE; Start 09/19/16 at 23:45 Glucose (Glutose) 15 gm Q15M PRN BUCCAL DECREASED GLUCOSE; Start 09/19/16 at 23: 45 Mupirocin (Bactroban) 1 applic BID TOP Last administered on 09/29/16 10:00; Admin Dose 1 APPLIC; Start 09/21/16 at 12:00 Famotidine (Pepcid) 20 mg BID PO Last administered on 09/29/16 09:58; Admin Dose 20 MG; Start 09/21/16 at 21:00 Nystatin (Nystatin Powder) 1 applic BID TOP Last administered on 09/29/16 09: 59; Admin Dose 1 APPLIC; Start 09/22/16 at 21:00 ANGELICA ALTAMIRANO MD Sep 29, 2016 15:49
[2016-09-29] MEDS: DEXTROSE 5%-0.45% NACL 1,000 ML IV SCH ×2 (18:23→23:16)
[2016-09-29 20:00] VITALS: BP 130/69; RESP 18
[2016-09-30] MEDS: ACCUCHECK AT 2AM (Patients on SS coverage) XX SCH (02:00)
[2016-09-30] MEDS: FUROSEMIDE 20 MG TAB PO SCH (06:39)
[2016-09-30] MEDS: INSULIN ASPART [NOVOLOG] 3 ML PEN SC SCH ×4 (08:00→21:00)
[2016-09-30 08:37] VITALS: BP 131/60; RESP 20
[2016-09-30] MEDS: OCULAR LUBRICANT 3.5 GM OPH OINT BOTH EYES SCH ×2 (09:40→21:25)
[2016-09-30] MEDS: CHLORHEXIDINE GLUCONATE 15 ML UD CUP MM SCH ×2 (09:40→21:25)
[2016-09-30] MEDS: OXYBUTYNIN 5 MG TAB PO SCH ×2 (09:41→21:25)
[2016-09-30] MEDS: FAMOTIDINE 20 MG TAB PO SCH ×2 (09:41→21:26)
[2016-09-30] MEDS: APIXABAN 5 MG TABLET PO SCH ×2 (09:41→21:25)
[2016-09-30] MEDS: ZINC SULFATE 220 MG CAP PO SCH (09:41)
[2016-09-30] MEDS: GABAPENTIN 100 MG CAP PO SCH (09:41)
[2016-09-30] MEDS: ESCITALOPRAM 10 MG TAB PO SCH (09:41)
[2016-09-30] MEDS: MULTIVITAMINS THERAPEUTIC TAB PO SCH (09:41)
[2016-09-30] MEDS: BENAZEPRIL 10 MG TAB PO SCH (09:41)
[2016-09-30] MEDS: ASCORBIC ACID 500 MG TAB PO SCH (09:41)
[2016-09-30] MEDS: NYSTATIN 30 GM POWDER BTL TOP SCH ×2 (09:42→21:27)
[2016-09-30] MEDS: MUPIROCIN 2% 22 GM OINT TOP SCH ×2 (09:42→21:26)
--- NOTE | 2016-09-30 11:45 | CONS ---
Date/Time of Note Date/Time of Note DATE: 09/30/16 TIME: 11:43 Assessment/Plan Assessment/Plan Additional Assessment/Plan MPRESSION: 1. Abdominal pain. 2. Cirrhosis of liver. 3. Morbid obesity. 4. Possible liver mass, rule out hepatocellular cancer. 5. Chronic obstructive pulmonary disease.s/p tracheostomy 6. Deep venous thrombosis in the lower extremities. 7. Depression. 8. Diabetes mellitus. 9. Cirrhosis of liver. Plan 3 phase study for liver ,consistent with Hepatocellular cancer Jesus feto protein .200,000 pt.need transarterial chemoembolization by IR There is no family available. Consultation Date/Type/Reason Admit Date/Time Sep 21, 2016 at 10:00 Initial Consult Date 09/21/16 [facility] Referring Provider: ANGELICA ALTAMIRANO MD 24 HR Interval Summary Constitutional: no complaints Exam/Review of Systems Vital Signs Vitals Vital Signs Date Time Temp Pulse Resp B/P Pulse Ox O2 Delivery O2 Flow Rate FiO2 09/30/16 08:37 98.6 67 20 131/60 20 09/30/16 08:24 Aerosol 5.0 28 T Tube Intake and Output 09/29/16 09/29/16 09/30/16 15:00 23:00 07:00 Intake Total 540 ml 480 ml Balance 540 ml 480 ml Exam Constitutional: alert, oriented, well developed Psych: nl mood/affect, no complaints Head: atraumatic, normocephalic Eyes: EOMI, PERRL, nl conjunctiva, nl lids, nl sclera ENMT: nl external ears & nose, nl lips & teeth, nl nasal mucosa & septum Neck: non-tender, supple Respiratory: clear to auscultation, normal air movement Cardiovascular: nl pulses, regular rate and rhythm Gastrointestinal: nl liver, spleen, non-tender, soft Musculoskeletal: nl extremities to inspection, nl gait and stance Extremities: normal pulses 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: ROD FINISHER II-XII intact, nl mental status, nl speech, nl strength Skin: nl turgor, No rash or lesions Lymph: nl lymph nodes Results Result Diagram: 09/26/16 0430 09/26/16 0430 Results 24 hrs Laboratory Tests Test 09/29/16 12:41 09/29/16 17:17 09/29/16 21:24 09/30/16 07:42 Bedside Glucose 128 153 98 110 Test 09/30/16 11:23 Bedside Glucose 137 Medications Medications Current Medications Apixaban (Eliquis) 5 mg BID PO Last administered on 09/30/16 09:41; Admin Dose 5 MG; Start 09/20/16 at 09:00 Eye Lubricant (Akwa Oint) 1 applic BID BOTH EYES Last administered on 09:40; Admin Dose 1 APPLIC; Start 09/20/16 at 09:00 Ascorbic Acid (Vitamin C) 500 mg DAILY PO Last administered on 09/30/16 09:41 ; Admin Dose 500 MG; Start 09/20/16 at 09:00 Benazepril HCl (Lotensin) 10 mg DAILY PO Last administered on 09/30/16 09:41; Admin Dose 10 MG; Start 09/20/16 at 09:00 Bisacodyl (Dulcolax Supp) 10 mg Q24H PRN [place] PRN Last administered on 09/27/16 05:44; Admin Dose 10 MG; Start 09/19/16 at 23:30 Chlorhexidine Gluconate (Peridex) 15 ml Q12 MM Last administered on 09/30/16 09:40; Admin Dose 15 ML; Start 09/20/16 at 09:00 Escitalopram Oxalate (Lexapro) 5 mg DAILY PO Last administered on 09/30/16 09: 41; Admin Dose 5 MG; Start 09/20/16 at 09:00 Furosemide (Lasix) 20 mg DAILY@06 PO Last administered on 09/30/16 06:39; Admin Dose 20 MG; Start 09/20/16 at 06:00 Gabapentin (Neurontin) 100 mg DAILY PO Last administered on 09/30/16 09:41; Admin Dose 100 MG; Start 09/20/16 at 09:00 Magnesium Hydroxide (Milk Of Mag) 30 ml Q24H PRN PO PRN Last administered on 22:39; Admin Dose 30 ML; Start 09/19/16 at 23:30 Multivitamins Therapeutic (Theragran) 1 tab DAILY PO Last administered on 09:41; Admin Dose 1 TAB; Start 09/20/16 at 09:00 Oxybutynin Chloride (Ditropan) 5 mg BID PO Last administered on 09/30/16 09:41 ; Admin Dose 5 MG; Start 09/20/16 at 09:00 Polyethylene Glycol (Miralax) 17 gm DAILY PRN PO PRN Last administered on 03:17; Admin Dose 17 GM; Start 09/19/16 at 23:30 Tramadol HCl (Ultram) 50 mg TID PRN PO PAIN Last administered on 09/29/16 21: 42; Admin Dose 50 MG; Start 09/19/16 at 23:30 Zinc Sulfate (Zinc Sulfate) 220 mg DAILY PO Last administered on 09/30/16 09: 41; Admin Dose 220 MG; Start 09/20/16 at 09:00 Diphenhydramine HCl 50 mg 50 mg DAILY PRN PO ITCHING Last administered on 03:17; Admin Dose 50 MG; Start 09/19/16 at 23:30 Dextrose/Sodium Chloride (D5-1/2ns) 1,000 ml @ 40 mls/hr Q24H IV Last administered on 09/29/16 18:23; Admin Dose 40 MLS/HR; Start 09/19/16 at 23:16 Ondansetron HCl (Zofran Inj) 4 mg Q4H PRN IV NAUSEA AND/OR VOMITING Last administered on 09/20/16 06:20; Admin Dose 4 MG; Start 09/19/16 at 23:30 Hydromorphone HCl (Dilaudid) 0.5 mg Q4H PRN IV SEVERE PAIN LEVEL 7-10; Start at 23:30 Diagnostic Test (Pha) (Accucheck) 1 ea 02 XX Last administered on 09/22/16 02: 17; Admin Dose 1 EA; Start 09/20/16 at 02:00 Miscellaneous Information 1 ea NOTE XX ; Start 09/19/16 at 23:45 Glucose (Glutose) 15 gm Q15M PRN PO DECREASED GLUCOSE; Start 09/19/16 at 23:45 Glucose (Glutose) 22.5 gm Q15M PRN PO DECREASED GLUCOSE; Start 09/19/16 at 23:45 Dextrose (D50w Syringe) 25 ml Q15M PRN IV DECREASED GLUCOSE; Start 09/19/16 at 23:45 Dextrose (D50w Syringe) 50 ml Q15M PRN IV DECREASED GLUCOSE; Start 09/19/16 at 23:45 Glucagon (Glucagen) 1 mg Q15M PRN IM DECREASED GLUCOSE; Start 09/19/16 at 23:45 Glucose (Glutose) 15 gm Q15M PRN BUCCAL DECREASED GLUCOSE; Start 09/19/16 at 23: 45 Mupirocin (Bactroban) 1 applic BID TOP Last administered on 09/30/16 09:42; Admin Dose 1 APPLIC; Start 09/21/16 at 12:00 Famotidine (Pepcid) 20 mg BID PO Last administered on 09/30/16 09:41; Admin Dose 20 MG; Start 09/21/16 at 21:00 Nystatin (Nystatin Powder) 1 applic BID TOP Last administered on 09/30/16 09: 42; Admin Dose 1 APPLIC; Start 09/22/16 at 21:00 MICHELL RAMIREZ MD Sep 30, 2016 11:44
--- NOTE | 2016-09-30 12:29 | CONS ---
Date/Time of Note Date/Time of Note DATE: 09/30/16 TIME: 12:28 Assessment/Plan Assessment/Plan Chief Complaint/Hosp Course 55 yo female with history or recurrent DVT who now presents with liver lesions and pancytopenia. Problems: Additional Assessment/Plan # Liver lesion -pt has been seen by Dr. Curtis who agrees pt most likely has HCC and that a liver bx is not needed, AFP > 200,000 -pt will be set up for out patient Transarterial chemoembolization -triple phase CT abdomen does demonstrate lesion concerning for neoplasm #Pancytopenia -likely secondary to liver cirrhosis -will monitor counts #h/o multiple DVT s/p IVC filter -LE ultrasounds confirms RLE DVT. spoke with radiologist who is not able to determine how old this clot is. -appreciate vascular surgery consult. thrombectomy will be attempted -cont Xarelto for now as it is not clear that patient failed anticoagulation. INR is currently 3. will monitor # question on bone mets -spoke with Abner Boateng, radiologist who stated there were infact NO BONE METS on CT. this was a misread and will be amended on the scan Approximately 40 min were spent at patient's bedside and in coordination of her care Consultation Date/Type/Reason Admit Date/Time Sep 21, 2016 at 10:00 Initial Consult Date 09/21/16 Type of Consultation: Hemeonc Reason for Consultation HCC Referring Provider: ANGELICA ALTAMIRANO MD 24 HR Interval Summary Free Text/Dictation no acute overnight events Exam/Review of Systems Vital Signs Vitals Vital Signs Date Time Temp Pulse Resp B/P Pulse Ox O2 Delivery O2 Flow Rate FiO2 09/30/16 08:37 98.6 67 20 131/60 20 09/30/16 08:24 Aerosol 5.0 28 T Tube Intake and Output 09/29/16 09/29/16 09/30/16 15:00 23:00 07:00 Intake Total 540 ml 480 ml Balance 540 ml 480 ml Exam Constitutional: alert, oriented Psych: no complaints Eyes: nl conjunctiva ENMT: nl external ears & nose, nl lips & teeth Neck: non-tender, supple Respiratory: clear to auscultation, normal air movement Cardiovascular: nl pulses, regular rate and rhythm Gastrointestinal: soft Musculoskeletal: nl extremities to inspection, nl gait and stance Extremities: normal pulses Results Result Diagram: 09/26/1642909/26/16 0430 Results 24 hrs Laboratory Tests Test 09/29/16 12:41 09/29/16 17:17 09/29/16 21:24 09/30/16 07:42 Bedside Glucose 128 153 98 110 Test 09/30/16 11:23 Bedside Glucose 137 Medications Medications Current Medications Apixaban (Eliquis) 5 mg BID PO Last administered on 09/30/16 09:41; Admin Dose 5 MG; Start 09/20/16 at 09:00 Eye Lubricant (Akwa Oint) 1 applic BID BOTH EYES Last administered on 09:40; Admin Dose 1 APPLIC; Start 09/20/16 at 09:00 Ascorbic Acid (Vitamin C) 500 mg DAILY PO Last administered on 09/30/16 09:41 ; Admin Dose 500 MG; Start 09/20/16 at 09:00 Benazepril HCl (Lotensin) 10 mg DAILY PO Last administered on 09/30/16 09:41; Admin Dose 10 MG; Start 09/20/16 at 09:00 Bisacodyl (Dulcolax Supp) [address] PRN Last administered on 09/27/16 05:44; Admin Dose 10 MG; Start 09/19/16 at 23:30 Chlorhexidine Gluconate (Peridex) 15 ml Q12 MM Last administered on 09/30/16 09:40; Admin Dose 15 ML; Start 09/20/16 at 09:00 Escitalopram Oxalate (Lexapro) 5 mg DAILY PO Last administered on 09/30/16 09: 41; Admin Dose 5 MG; Start 09/20/16 at 09:00 Furosemide (Lasix) 20 mg DAILY@06 PO Last administered on 09/30/16 06:39; Admin Dose 20 MG; Start 09/20/16 at 06:00 Gabapentin (Neurontin) 100 mg DAILY PO Last administered on 09/30/16 09:41; Admin Dose 100 MG; Start 09/20/16 at 09:00 Magnesium Hydroxide (Milk Of Mag) 30 ml Q24H PRN PO PRN Last administered on 22:39; Admin Dose 30 ML; Start 09/19/16 at 23:30 Multivitamins Therapeutic (Theragran) 1 tab DAILY PO Last administered on 09:41; Admin Dose 1 TAB; Start 09/20/16 at 09:00 Oxybutynin Chloride (Ditropan) 5 mg BID PO Last administered on 09/30/16 09:41 ; Admin Dose 5 MG; Start 09/20/16 at 09:00 Polyethylene Glycol (Miralax) 17 gm DAILY PRN PO PRN Last administered on 03:17; Admin Dose 17 GM; Start 09/19/16 at 23:30 Tramadol HCl (Ultram) 50 mg TID PRN PO PAIN Last administered on 09/29/16 21: 42; Admin Dose 50 MG; Start 09/19/16 at 23:30 Zinc Sulfate (Zinc Sulfate) 220 mg DAILY PO Last administered on 09/30/16 09: 41; Admin Dose 220 MG; Start 09/20/16 at 09:00 Diphenhydramine HCl 50 mg 50 mg DAILY PRN PO ITCHING Last administered on 03:17; Admin Dose 50 MG; Start 09/19/16 at 23:30 Dextrose/Sodium Chloride (D5-1/2ns) 1,000 ml @ 40 mls/hr Q24H IV Last administered on 09/29/16 18:23; Admin Dose 40 MLS/HR; Start 09/19/16 at 23:16 Ondansetron HCl (Zofran Inj) 4 mg Q4H PRN IV NAUSEA AND/OR VOMITING Last administered on 09/20/16 06:20; Admin Dose 4 MG; Start 09/19/16 at 23:30 Hydromorphone HCl (Dilaudid) 0.5 mg Q4H PRN IV SEVERE PAIN LEVEL 7-10; Start at 23:30 Diagnostic Test (Pha) (Accucheck) 1 ea 02 XX Last administered on 09/22/16 02: 17; Admin Dose 1 EA; Start 09/20/16 at 02:00 Miscellaneous Information 1 ea NOTE XX ; Start 09/19/16 at 23:45 Glucose (Glutose) 15 gm Q15M PRN PO DECREASED GLUCOSE; Start 09/19/16 at 23:45 Glucose (Glutose) 22.5 gm Q15M PRN PO DECREASED GLUCOSE; Start 09/19/16 at 23:45 Dextrose (D50w Syringe) 25 ml Q15M PRN IV DECREASED GLUCOSE; Start 09/19/16 at 23:45 Dextrose (D50w Syringe) 50 ml Q15M PRN IV DECREASED GLUCOSE; Start 09/19/16 at 23:45 Glucagon (Glucagen) 1 mg Q15M PRN IM DECREASED GLUCOSE; Start 09/19/16 at 23:45 Glucose (Glutose) 15 gm Q15M PRN BUCCAL DECREASED GLUCOSE; Start 09/19/16 at 23: 45 Mupirocin (Bactroban) 1 applic BID TOP Last administered on 09/30/16 09:42; Admin Dose 1 APPLIC; Start 09/21/16 at 12:00 Famotidine (Pepcid) 20 mg BID PO Last administered on 09/30/16 09:41; Admin Dose 20 MG; Start 09/21/16 at 21:00 Nystatin (Nystatin Powder) 1 applic BID TOP Last administered on 09/30/16 09: 42; Admin Dose 1 APPLIC; Start 09/22/16 at 21:00 ELTON LINCOLN M.D. Sep 30, 2016 12:29
--- NOTE | 2016-09-30 13:45 | PN ---
Date/Time of Note Date/Time of Note DATE: 09/30/16 TIME: 13:43 Assessment/Plan VTE Prophylaxis VTE Prophylaxis Intervention: other Lines/Catheters IV Catheter Type (from [facility]): Peripheral IV Urinary Cath still in place: No Assessment/Plan Chief Complaint/Hosp Course IMPRESSION: 1. cirrhosis 2. poss liver ca 3. Abnormal LFT. 4. Hypertension, diabetes mellitus, obesity, tracheostomy, COPD, DVT, history of inferior vena cava filter placement. 5 poss hcc liver tumor 6 high afp plan per dr gilmore per gi per dr mccarthy out pt tace Problems: Subjective 24 Hr Interval Summary Cardiovascular: no complaints Gastrointestinal: no complaints Exam/Review of Systems Vital Signs Vitals Vital Signs Date Time Temp Pulse Resp B/P Pulse Ox O2 Delivery O2 Flow Rate FiO2 09/30/16 08:37 98.6 67 20 131/60 20 09/30/16 08:24 Aerosol 5.0 28 T Tube Intake and Output 09/29/16 09/29/16 09/30/16 15:00 23:00 07:00 Intake Total 540 ml 480 ml Balance 540 ml 480 ml Exam Neck: supple Respiratory: clear to auscultation Cardiovascular: regular rate and rhythm Gastrointestinal: non-tender, soft Extremities: edema (+) Results Result Diagram: 09/26/16 04309/26/16 0430 Results 24 hrs Laboratory Tests Test 09/29/16 17:17 09/29/16 21:24 09/30/16 07:42 09/30/16 11:23 Bedside Glucose 153 98 110 137 Medications Medications Current Medications Apixaban (Eliquis) 5 mg BID PO Last administered on 09/30/16 09:41; Admin Dose 5 MG; Start 09/20/16 at 09:00 Eye Lubricant (Akwa Oint) 1 applic BID BOTH EYES Last administered on 09:40; Admin Dose 1 APPLIC; Start 09/20/16 at 09:00 Ascorbic Acid (Vitamin C) 500 mg DAILY PO Last administered on 09/30/16 09:41 ; Admin Dose 500 MG; Start 09/20/16 at 09:00 Benazepril HCl (Lotensin) 10 mg DAILY PO Last administered on 09/30/16 09:41; Admin Dose 10 MG; Start 09/20/16 at 09:00 Bisacodyl (Dulcolax Supp) 10 mg Q24H PRN [place] PRN Last administered on 09/27/16 05:44; Admin Dose 10 MG; Start 09/19/16 at 23:30 Chlorhexidine Gluconate (Peridex) 15 ml Q12 MM Last administered on 09/30/16 09:40; Admin Dose 15 ML; Start 09/20/16 at 09:00 Escitalopram Oxalate (Lexapro) 5 mg DAILY PO Last administered on 09/30/16 09: 41; Admin Dose 5 MG; Start 09/20/16 at 09:00 Furosemide (Lasix) 20 mg DAILY@06 PO Last administered on 09/30/16 06:39; Admin Dose 20 MG; Start 09/20/16 at 06:00 Gabapentin (Neurontin) 100 mg DAILY PO Last administered on 09/30/16 09:41; Admin Dose 100 MG; Start 09/20/16 at 09:00 Magnesium Hydroxide (Milk Of Mag) 30 ml Q24H PRN PO PRN Last administered on 22:39; Admin Dose 30 ML; Start 09/19/16 at 23:30 Multivitamins Therapeutic (Theragran) 1 tab DAILY PO Last administered on 09:41; Admin Dose 1 TAB; Start 09/20/16 at 09:00 Oxybutynin Chloride (Ditropan) 5 mg BID PO Last administered on 09/30/16 09:41 ; Admin Dose 5 MG; Start 09/20/16 at 09:00 Polyethylene Glycol (Miralax) 17 gm DAILY PRN PO PRN Last administered on 03:17; Admin Dose 17 GM; Start 09/19/16 at 23:30 Tramadol HCl (Ultram) 50 mg TID PRN PO PAIN Last administered on 09/29/16 21: 42; Admin Dose 50 MG; Start 09/19/16 at 23:30 Zinc Sulfate (Zinc Sulfate) 220 mg DAILY PO Last administered on 09/30/16 09: 41; Admin Dose 220 MG; Start 09/20/16 at 09:00 Diphenhydramine HCl 50 mg 50 mg DAILY PRN PO ITCHING Last administered on 03:17; Admin Dose 50 MG; Start 09/19/16 at 23:30 Dextrose/Sodium Chloride (D5-1/2ns) 1,000 ml @ 40 mls/hr Q24H IV Last administered on 09/29/16 18:23; Admin Dose 40 MLS/HR; Start 09/19/16 at 23:16 Ondansetron HCl (Zofran Inj) 4 mg Q4H PRN IV NAUSEA AND/OR VOMITING Last administered on 09/20/16 06:20; Admin Dose 4 MG; Start 09/19/16 at 23:30 Hydromorphone HCl (Dilaudid) 0.5 mg Q4H PRN IV SEVERE PAIN LEVEL 7-10; Start at 23:30 Diagnostic Test (Pha) (Accucheck) 1 ea 02 XX Last administered on 09/22/16 02: 17; Admin Dose 1 EA; Start 09/20/16 at 02:00 Miscellaneous Information 1 ea NOTE XX ; Start 09/19/16 at 23:45 Glucose (Glutose) 15 gm Q15M PRN PO DECREASED GLUCOSE; Start 09/19/16 at 23:45 Glucose (Glutose) 22.5 gm Q15M PRN PO DECREASED GLUCOSE; Start 09/19/16 at 23:45 Dextrose (D50w Syringe) 25 ml Q15M PRN IV DECREASED GLUCOSE; Start 09/19/16 at 23:45 Dextrose (D50w Syringe) 50 ml Q15M PRN IV DECREASED GLUCOSE; Start 09/19/16 at 23:45 Glucagon (Glucagen) 1 mg Q15M PRN IM DECREASED GLUCOSE; Start 09/19/16 at 23:45 Glucose (Glutose) 15 gm Q15M PRN BUCCAL DECREASED GLUCOSE; Start 09/19/16 at 23: 45 Mupirocin (Bactroban) 1 applic BID TOP Last administered on 09/30/16 09:42; Admin Dose 1 APPLIC; Start 09/21/16 at 12:00 Famotidine (Pepcid) 20 mg BID PO Last administered on 09/30/16 09:41; Admin Dose 20 MG; Start 09/21/16 at 21:00 Nystatin (Nystatin Powder) 1 applic BID TOP Last administered on 09/30/16 09: 42; Admin Dose 1 APPLIC; Start 09/22/16 at 21:00 ANGELICA ALTAMIRANO MD Sep 30, 2016 13:45
[2016-09-30] MEDS: ALBUTEROL 0.083% (NEB) 2.5 MG/3 ML AMP NEB PRN (18:00)
[2016-09-30 19:38] LABS: AADO2 Arterial 89.8 mmHg (7.0-24.0); Allen Test ACCEPTAB; Arterial Base Excess 1.3 mmol/L (-3.0-3); Arterial COHb 0.5 % (0.0-3.0); Arterial Fraction of Oxyhgb 92.2 % (93.0-99.0); Arterial HCO3 25.2 mmol/L (22.0-26.0); Arterial MetHb 0.3 % (0.0-1.5); Arterial Total Hemglobin 11.7 g/dl (12.0-18.0); MODE COOL AEROSOL
[2016-09-30 20:40] VITALS: BP 109/74; RESP 20
[2016-10-01] MEDS: DEXTROSE 5%-0.45% NACL 1,000 ML IV SCH (00:43)
[2016-10-01] MEDS: ACCUCHECK AT 2AM (Patients on SS coverage) XX SCH (02:00)
[2016-10-01] MEDS: FUROSEMIDE 20 MG TAB PO SCH (05:24)
[2016-10-01] MEDS: INSULIN ASPART [NOVOLOG] 3 ML PEN SC SCH ×3 (08:00→18:05)
[2016-10-01 08:14] VITALS: BP 127/64; RESP 20
[2016-10-01] MEDS: APIXABAN 5 MG TABLET PO SCH (08:52)
[2016-10-01] MEDS: FAMOTIDINE 20 MG TAB PO SCH (08:52)
[2016-10-01] MEDS: ASCORBIC ACID 500 MG TAB PO SCH (08:52)
[2016-10-01] MEDS: ZINC SULFATE 220 MG CAP PO SCH (08:52)
[2016-10-01] MEDS: MULTIVITAMINS THERAPEUTIC TAB PO SCH (08:52)
[2016-10-01] MEDS: ESCITALOPRAM 10 MG TAB PO SCH (08:53)
[2016-10-01] MEDS: GABAPENTIN 100 MG CAP PO SCH (08:53)
[2016-10-01] MEDS: OXYBUTYNIN 5 MG TAB PO SCH (08:53)
[2016-10-01] MEDS: CHLORHEXIDINE GLUCONATE 15 ML UD CUP MM SCH (08:53)
[2016-10-01] MEDS: BENAZEPRIL 10 MG TAB PO SCH (08:53)
[2016-10-01] MEDS: OCULAR LUBRICANT 3.5 GM OPH OINT BOTH EYES SCH (08:53)
[2016-10-01] MEDS: NYSTATIN 30 GM POWDER BTL TOP SCH (08:54)
[2016-10-01] MEDS: MUPIROCIN 2% 22 GM OINT TOP SCH (08:54)
--- NOTE | 2016-10-01 13:11 | CONS ---
Date/Time of Note Date/Time of Note DATE: 10/01/16 TIME: 13:10 Assessment/Plan Assessment/Plan Additional Assessment/Plan MPRESSION: 1. Abdominal pain. 2. Cirrhosis of liver. 3. Morbid obesity. 4. Possible liver mass, rule out hepatocellular cancer. 5. Chronic obstructive pulmonary disease.s/p tracheostomy 6. Deep venous thrombosis in the lower extremities. 7. Depression. 8. Diabetes mellitus. 9. Cirrhosis of liver. Plan 3 phase study for liver ,consistent with Hepatocellular cancer Jesus feto protein .200,000 pt.need transarterial chemoembolization by IR pt. needs to go to tertiary [facility] for chemoembolization Consultation Date/Type/Reason Admit Date/Time Sep 21, 2016 at 10:00 Initial Consult Date 09/21/16 Type of Consultation: Hemeon Referring Provider: ANGELICA ALTAMIRANO MD 24 HR Interval Summary Constitutional: no complaints Exam/Review of Systems Vital Signs Vitals Vital Signs Date Time Temp Pulse Resp B/P Pulse Ox O2 Delivery O2 Flow Rate FiO2 10/01/16 08:14 98.5 87 20 127/64 100 10/01/16 06:07 Aerosol 5.0 28 T Tube Intake and Output 09/30/16 09/30/16 10/01/16 15:00 23:00 07:00 Intake Total 480 ml 620 ml Balance 480 ml 620 ml Exam Constitutional: alert, oriented, well developed Psych: nl mood/affect, no complaints Head: atraumatic, normocephalic Eyes: EOMI, PERRL, nl conjunctiva, nl lids, nl sclera ENMT: nl external ears & nose, nl lips & teeth, nl nasal mucosa & septum Neck: non-tender, supple Respiratory: clear to auscultation, normal air movement Cardiovascular: nl pulses, regular rate and rhythm Gastrointestinal: nl liver, spleen, non-tender, soft Musculoskeletal: nl extremities to inspection, nl gait and stance Extremities: normal pulses 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: 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, nl mental status, nl speech, nl strength Skin: nl turgor, No rash or lesions Lymph: nl lymph nodes Results Results 24 hrs Laboratory Tests Test 09/30/16 17:02 09/30/16 18:33 09/30/16 21:22 10/01/16 02:54 Bedside Glucose 138 114 122 Arterial Blood HCO3 25.2 Arterial Blood Base Excess 1.3 Arterial Blood Oxygen Saturation 92.9 L Fish Test ACCEPTAB Arterial Blood Gas Puncture Site Right Radial Arterial Blood Carboxyhemoglobin 0.5 Arterial Blood Date Drawn 09/30/2016 7:30:30 PM Arterial Blood Methemoglobin 0.3 Arterial Blood pCO2 (Temp correct) 37.3 Arterial Blood pH (Temp corrected) 7.447 Arterial Blood pO2 (Temp corrected) 65.8 L Blood Gas A-a O2 Differential 89.8 H Blood Gas Actual Respiration Rate 22 Blood Gas Modality COOL AEROSOL Blood Gas Notified Time 09/30/2016 7:37:59 PM Blood Gas Notified Whom MG Blood Gas Specimen Source Blood arterial Blood Gas Temperature 37.0 FiO2 28.0 Oxyhemoglobin Percent 92.2 L Total Hemoglobin 11.7 L Test 10/01/16 07:26 10/01/16 11:44 Bedside Glucose 113 120 Medications Medications Current Medications Apixaban (Eliquis) 5 mg BID PO Last administered on 10/01/16 08:52; Admin Dose 5 MG; Start 09/20/16 at 09:00 Eye Lubricant (Akwa Oint) 1 applic BID BOTH EYES Last administered on 08:53; Admin Dose 1 APPLIC; Start 09/20/16 at 09:00 Ascorbic Acid (Vitamin C) 500 mg DAILY PO Last administered on 10/01/16 08:52 ; Admin Dose 500 MG; Start 09/20/16 at 09:00 Benazepril HCl (Lotensin) 10 mg DAILY PO Last administered on 10/01/16 08:53; Admin Dose 10 MG; Start 09/20/16 at 09:00 Bisacodyl (Dulcolax Supp) 10 mg Q24H PRN [place] PRN Last administered on 09/27/16 05:44; Admin Dose 10 MG; Start 09/19/16 at 23:30 Chlorhexidine Gluconate (Peridex) 15 ml Q12 MM Last administered on 10/01/16 08:53; Admin Dose 15 ML; Start 09/20/16 at 09:00 Escitalopram Oxalate (Lexapro) 5 mg DAILY PO Last administered on 10/01/16 08: 53; Admin Dose 5 MG; Start 09/20/16 at 09:00 Furosemide (Lasix) 20 mg DAILY@06 PO Last administered on 10/01/16 05:24; Admin Dose 20 MG; Start 09/20/16 at 06:00 Gabapentin (Neurontin) 100 mg DAILY PO Last administered on 10/01/16 08:53; Admin Dose 100 MG; Start 09/20/16 at 09:00 Magnesium Hydroxide (Milk Of Mag) 30 ml Q24H PRN PO PRN Last administered on 22:39; Admin Dose 30 ML; Start 09/19/16 at 23:30 Multivitamins Therapeutic (Theragran) 1 tab DAILY PO Last administered on 08:52; Admin Dose 1 TAB; Start 09/20/16 at 09:00 Oxybutynin Chloride (Ditropan) 5 mg BID PO Last administered on 10/01/16 08:53 ; Admin Dose 5 MG; Start 09/20/16 at 09:00 Polyethylene Glycol (Miralax) 17 gm DAILY PRN PO PRN Last administered on 03:17; Admin Dose 17 GM; Start 09/19/16 at 23:30 Tramadol HCl (Ultram) 50 mg TID PRN PO PAIN Last administered on 09/29/16 21: 42; Admin Dose 50 MG; Start 09/19/16 at 23:30 Zinc Sulfate (Zinc Sulfate) 220 mg DAILY PO Last administered on 10/01/16 08: 52; Admin Dose 220 MG; Start 09/20/16 at 09:00 Diphenhydramine HCl 50 mg 50 mg DAILY PRN PO ITCHING Last administered on 03:17; Admin Dose 50 MG; Start 09/19/16 at 23:30 Dextrose/Sodium Chloride (D5-1/2ns) 1,000 ml @ 40 mls/hr Q24H IV Last administered on 10/01/16 00:43; Admin Dose 40 MLS/HR; Start 09/19/16 at 23:16 Ondansetron HCl (Zofran Inj) 4 mg Q4H PRN IV NAUSEA AND/OR VOMITING Last administered on 09/20/16 06:20; Admin Dose 4 MG; Start 09/19/16 at 23:30 Hydromorphone HCl (Dilaudid) 0.5 mg Q4H PRN IV SEVERE PAIN LEVEL 7-10; Start at 23:30 Diagnostic Test (Pha) (Accucheck) 1 ea 02 XX Last administered on 09/22/16 02: 17; Admin Dose 1 EA; Start 09/20/16 at 02:00 Miscellaneous Information 1 ea NOTE XX ; Start 09/19/16 at 23:45 Glucose (Glutose) 15 gm Q15M PRN PO DECREASED GLUCOSE; Start 09/19/16 at 23:45 Glucose (Glutose) 22.5 gm Q15M PRN PO DECREASED GLUCOSE; Start 09/19/16 at 23:45 Dextrose (D50w Syringe) 25 ml Q15M PRN IV DECREASED GLUCOSE; Start 09/19/16 at 23:45 Dextrose (D50w Syringe) 50 ml Q15M PRN IV DECREASED GLUCOSE; Start 09/19/16 at 23:45 Glucagon (Glucagen) 1 mg Q15M PRN IM DECREASED GLUCOSE; Start 09/19/16 at 23:45 Glucose (Glutose) 15 gm Q15M PRN BUCCAL DECREASED GLUCOSE; Start 09/19/16 at 23: 45 Mupirocin (Bactroban) 1 applic BID TOP Last administered on 10/01/16 08:54; Admin Dose 1 APPLIC; Start 09/21/16 at 12:00 Famotidine (Pepcid) 20 mg BID PO Last administered on 10/01/16 08:52; Admin Dose 20 MG; Start 09/21/16 at 21:00 Nystatin (Nystatin Powder) 1 applic BID TOP Last administered on 10/01/16 08: 54; Admin Dose 1 APPLIC; Start 09/22/16 at 21:00 MICHELL RAMIREZ MD Oct 01, 2016 13:11
[2016-10-01] MEDS: ALBUTEROL 0.083% (NEB) 2.5 MG/3 ML AMP NEB PRN (14:30)
[2016-10-01] MEDS: MAGNESIUM HYDROXIDE 30ML CUP PO PRN (16:37)
--- NOTE | 2016-10-03 23:12 | QN ---
Documentation Comment [id number] ANGELICA ALTAMIRANO MD Oct 03, 2016 23:12
--- NOTE | 2016-10-04 15:48 | DS ---
DATE OF ADMISSION: 09/21/2016 DATE OF DISCHARGE: 10/01/2016 ADMISSION DIAGNOSES: Patient was admitted with diagnoses of: 1. Abdominal pain. 2. Abnormal liver function tests. 3. Hypertension. 4. Diabetes mellitus. 5. Obesity. 6. ivc 7. Chronic obstructive pulmonary disease. 8. Deep vein thrombosis. 9. History of inferior vena cava filter placement. Patient was seen in GI consultation and also was seen by Dr. Adriana Lowry in hematology/oncology consultation. Patient's alpha fetoprotein was sent, which was highly elevated. Dr. Salvador Curtis was asked to see the patient in consultation. Patient also required bronchodilators. The patient had multiple studies done, including abdominal CT scan. It shows patient has cirrhotic liver with poorly defined heterogenous area within the right lobe, suspicious features for neoplastic disease. Multiple collateral vessels with splenomegaly, compatible with portal venous hypertension. Bibasilar atelectasis, cholelithiasis, _ bilaterally and cortical thinning, moderate left abdominal ventral hernia containing fat. Patient also had venous study done. It shows no soft tissue or extremity edema noted. Patient was seen by fabio also in consultation. Patient will have TACE procedure as an outpatient. Patient was stable and it was felt he could be discharged home safely with followup as an outpatient. Patient understood all of the patient's underlying conditions. DISCHARGE DIAGNOSES: Includes: 1. Patient has cirrhosis of the liver. 2. Obesity. 3. Liver mass. 4. Chronic obstructive pulmonary disease. 5. Deep vein thrombosis. 6. Inferior vena cava filter placement. 7. History of depression. 8. Diabetes. 9. Anemia. 10. Bedridden state. 11. Elevated afp_ of 14. 12. Patient to follow up neutropenia. 13. Patient has pancytopenia. DISCHARGE MEDICATIONS: 1. To continue on Bactroban for methicillin-resistant Staphylococcus aureus colonization. 2. Albuterol. 3. Apixaban. 4. Artificial tears. 5. Ascorbic acid. 6. Benazepril. 7. Bisacodyl. 8. Chlorhexidine. 9. Benadryl. 10. Lexapro. 11. Omeprazole. 12. Furosemide. 13. Gabapentin. 14. Ibuprofen. 15. Insulin. 16. Lactobacillus. 17. tylenol 18. Melatonin. 19. Multiple vitamins. 20. Zofran. 21. Ditropan. 22. MiraLax. 23. Tramadol. 24. Zinc sulfate. Patient is stable. Patient is going to be seeing Dr. anitra Lowry, and Dr. Salvador Curtis as an outpatient. Patient will be transferred to SNF. Dictated By: ANGELICA ALTAMIRANO MD BS/NTS Conf#: [id number] DID#: [id number]
== END 2016-10-01 18:46 | DRG 433 ==
LOC: E/R 21:49 → PP2 23:16 → OBSVTOIN 09-21 10:00
PROVIDERS: ADMIT Internal Medicine Nephrology; ATTEND Internal Medicine Nephrology
DX: K74.60 Unspecified cirrhosis of liver (principal); Z68.43 Body mass index [BMI] 50.0-59.9, adult; D61.818 Other pancytopenia; J96.10 Chronic respiratory failure, unspecified whether with hypoxia or hypercapnia; Z93.0 Tracheostomy status; I82.411 Acute embolism and thrombosis of right femoral vein; K76.6 Portal hypertension; R16.0 Hepatomegaly, not elsewhere classified; I10 Essential (primary) hypertension; E11.9 Type 2 diabetes mellitus without complications; J44.9 Chronic obstructive pulmonary disease, unspecified; F32.9 Major depressive disorder, single episode, unspecified; E66.01 Morbid (severe) obesity due to excess calories; Z74.01 Bed confinement status; Z22.322 Carrier or suspected carrier of Methicillin resistant Staphylococcus aureus; Z79.4 Long term (current) use of insulin; Z88.0 Allergy status to penicillin; Z86.73 Personal history of transient ischemic attack (TIA), and cerebral infarction without residual deficits
CPT/HCPCS: 36415; 36600; 74170; 74177; 80048; 80053; 82378; 82803; 82962; 83690; 84134; 85025; 85610; 85730; 86301; 86304; 87070; 90686; 92526; 92610; 93965; 94640; 96374; 96375; 97110; 97162; 97530; 99217; G0378; J1170; J1815; J2270; J2405; J7030; J7042; Q9967